=== PATIENT | male | born 1930 | race Caucasian/White ===

== ENCOUNTER 2018-05-18 14:19 | Observation (INO) ==
--- NOTE | 2018-05-18 14:48 | Emergency Department Note ---
ED Disposition Clinical Impression: Cellulitis, Neutropenia Disposition: Still a Patient Condition on Discharge: Good Instructions: DI for Skin Abscess Referrals: Gareth Myers MD [Primary Care Provider] - - Critical Care Critical Care Time: No Attestation: On 05/18/18, the high probability of a clinically significant, sudden or life threatening deterioration of the following system(s) required my full and direct attention, intervention and personal management. The time I documented below is in addition to time spent performing reported procedures but includes the f ollowing listed in this critical care notation. Medical Decision Making - Medical Records MR Comment: 89 pt with cellulitis, nuetropenia, plan admit, call to [facility]. - Wolf Inquiry Pt receiving controlled substance: No Vital Signs: 05/18/18 14:20 05/18/18 14:27 05/18/18 15:25 Temperature 97.8 F 97.9 F 98.1 F Temperature Source Oral Temporal Artery Scan Temporal Artery Scan Pulse Rate [Right Brachial] 75 78 74 Respiratory Rate 16 15 18 Blood Pressure [Right Arm] 137/76 141/72 Blood Pressure Mean [Right Arm] 96 95 Blood Pressure Source [Right Arm] Automatic Cuff Automatic Cuff Automatic Cuff Blood Pressure Position [Right Arm] Sitting Sitting Sitting 02 Sat by Pulse Oximetry 98 98 99 Oxygen Delivery Method Room Air Room Air 05/18/18 16:41 Temperature Temperature Source Pulse Rate [Right Brachial] 67 Respiratory Rate 18 Blood Pressure [Right Arm] 171/82 Blood Pressure Mean [Right Arm] 111 Blood Pressure Source [Right Arm] Automatic Cuff Blood Pressure Position [Right Arm] Sitting 02 Sat by Pulse Oximetry 99 Oxygen Delivery Method Room Air - Lab Data Lab Results 05/18/18 14:30: WBC 2.3 L, RBC 3.41 L, Hgb 10.4 L, Hct 32.1 L, MCV 94.2 H, MCH 30.7, MCHC 32.6, RDW 16.0, Plt Count 66 L, MPV 9.0, Neut % (Auto) 56.6, Lymph % (Auto) 30.0, Pershing % (Auto) 8.1, Eos % (Auto) 4.8, Baso % (Auto) 0.5, Neut # (Auto) 1.3 L, Lymph # (Auto) 0.7, Pershing # (Auto) 0.2, Eos # (Auto) 0.1, Baso # (Auto) 0.0 05/18/18 14:30: PT 12.2 H, INR 1.19 H, APTT 33.4 05/18/18 14:30: Sodium 140, Potassium 3.6, Chloride 105, Carbon Dioxide 30, Anion Gap 8.6, BUN 15, Creatinine 0.95, Estimated Creat Clear 60, Estimated GFR 75, Est GFR ( Amer) 91, Glucose 99, Calcium 8.1 L, Total Bilirubin 1.0, AST 37, ALT 28, Alkaline Phosphatase 70, Lactate Dehydrogenase 220, Troponin I 0.03, Total Protein 6.3 L, Albumin 2.7 L, Globulin 3.6 H, Albumin/Globulin Ratio 0.8 L 05/18/18 14:30: B-Natriuretic Peptide 464 H Result diagrams: 05/18/18 14:30 05/18/18 14:30 Orders (Tests/Meds): ED MEDICATIONS Discontinued Medications Generic Name Dose Route Start Last Admin Trade Name Freq PRN Reason Stop Dose Admin Vancomycin HCl 1,000 mg/ 250 mls @ 125 mls/hr 05/18/18 14:46 05/18/18 15:18 Sodium Chloride IV 05/18/18 16:45 125 mls/hr ONCE ONE Administration ORDERS Category Date Time Status Urinalysis and Microscopic Stat Lab 05/18/18 14:45 Ordered Blood Culture Stat Micro 05/18/18 14:30 Received General Adult HPI - General Chief complaint: Skin/Abscess/Foreign Body Stated complaint: cellulitis ble with blisters Time Seen by Provider: 05/18/18 14:46 Mode of Arrival: EMS Limitations: No Limitations Description of Symptoms (Recalled from ER Triage Doc. by RN): cellulitis to ble despite antibiotics - History of Present Illness HPI narrative: Patient states that his right foot has become hot and red over the past couple days he complains of foot and his right pain he complains of increased swelling in his legs he states his right leg swelling is gotten worse and it is starting to blister. He denies any falls or trauma he denies fevers he states he had some chills last night. He denies any headache or chest pain his right foot pain is moderate and achy and worse with motion. - Related Data Home Medications Medication Instructions Recorded Confirmed Acetaminophen [Tylenol Extra 500 mg PO Q6HP PRN 09/14/17 05/13/18 Strength] Losartan/Hydrochlorothiazide 1 each PO DAILY 09/14/17 05/13/18 [Losartan-Hctz 50-12.5 mg Tab] Meclizine HCl [Meclizine 12.5mg 12.5 mg PO BID 09/14/17 05/13/18 Tab] Nitroglycerin 0.4 mg SL Q5MINP PRN 09/14/17 05/13/18 Polyethylene Glycol 3350 [Miralax 17 gm PO NEEDED PRN 09/14/17 05/13/18 17gm Packet] hydrocodone 5 mg-acetaminophen 325 1 tab PO .Q6 PRN tab 10/05/17 05/13/18 mg tablet tamsulosin 0.4 mg capsule 0.4 mg PO DAILY cap 10/05/17 05/13/18 Previous Rx's Medication Instructions Recorded Doxycycline Hyclate [Doxycycline 100 mg PO Q12 #20 cap 05/13/18 100mg Capsule] Allergies Allergy/AdvReac Type Severity Reaction Status Date / Time aspirin [ASPIRIN] Allergy Mild Verified 12/21/17 10:07 [facility] History I have reviewed the patient's past medical history: Yes Medical History: Reports:: Carotid Stenosis, Heart Murmur, Peripheral Vascular Disease Denies:: Cancer, Diabetes Mellitus Type 1, Diabetes Mellitus Type 2, Internal Pacemaker, MRSA Other Medical History: Reports: Cataracts (BOTH EYES.) Comment: 1. Difficult historian. 2. Hypertension. 3. History of palpitations and bradycardia with recommendation for pacemaker in the past, 2013, with refusal per patient. 4. Possible history of cardiomyopathy, history confusing per patient. 5. Gastroesophageal reflux disease. 6. Vertigo. 7. 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 8. Cellulitis. 9. Reported history of peripheral arterial disease and varicose veins with previous evaluation by Dr. Bedolla, vascular surgeon, [facility], 2013. 10. Disability. 11. Peripheral neuropathy. 12. Aortic stenosis, moderate by T EE measurements with max flow gradient of 3.2 m/s with gradient of 27 mm Hg. But visually felt to be severe, 03/2017. Other Surgeries: No: Pacemaker Amputation: Yes Fractures: No - Social History Educational Level: Completed High School Smoking Status: Unknown if ever smoked Tobacco Type: cigarettes Alcohol Intake: never Occupational Status: retired - Psychiatric History Expresses thoughts of harming self/others: None Suicide Plan Description: No Plan Family Hx:: Unable to obtain ROS Obtained: Yes All systems reviewed & no additional complaints Physical Exam General Appearance: Nontoxic Head: Normocephalic, without obvious abnormality, atraumatic. Eyes: conjunctiva/corneas clear ENT: Mucous membranes moist. Neck: No jugular venous distention. Cardiac: regular rate and rhythm Lungs: Clear to auscultation bilaterally Abdomen: Nontender, Nondistended, positive bowel sounds, no rebound : No CVA tenderness Extremities: 3+ ble The right foot has erythema on the top of it it is hot and warm it is tender th ere is no fluctuance there is no induration capillary refill is equal bilaterally somewhat sluggish. Pulses 1+ bilaterally. Bilateral lower extremities have 3+ edema of the right has a blister on the anterior mid tib-fib that is about 3 cm x 1 cm. Clearish fluid. There is bilateral erythema on the legs. Musculoskeletal: No chest wall tenderness Skin: No rashes or lesions to exposed skin. Neurologic: Alert. No gross focal deficits Psychiatric: Normal affect - General General appearance: alert - Respiratory Respiratory exam: Present: normal lung sounds bilaterally - Cardiovascular Cardiovascular exam: Present: regular rate - Neurological Exam Neurological exam: Present: alert
[2018-05-18 14:57] LABS: Basophils % 0.5 % (0.1-2.0); Eosinophils # 0.1 K/mm3 (0.0-0.4); Eosinophils % 4.8 % (0.1-12.0); Hematocrit 32.1 % (42.0-52.0); Hemoglobin 10.4 g/dL (14.1-18.0); Lymphocytes # 0.7 K/mm3 (0.7-4.5); Mean Corpuscular HGB Conc 32.6 g/dL (31.8-35.4); Mean Corpuscular Hemoglobin 30.7 pg (27.0-31.2); Mean Corpuscular Volume 94.2 fl (80-94); Monocytes # 0.2 K/mm3 (0.1-1.0); Monocytes % 8.1 % (1.7-9.3); Neutrophils # 1.3 K/mm3 (1.8-7.8); Neutrophils % 56.6 % (37.0-80.0); Platelet Count 66 K/mm3 (142-424); Red Blood Count 3.41 M/mm3 (4.60-6.20); White Blood Count 2.3 K/mm3 (4.8-10.8)
[2018-05-18 15:02] LABS: INR 1.19 (0.9-1.1); Prothrombin Time 12.2 seconds (9.4-11.8)
[2018-05-18 15:08] LABS: Albumin Level 2.7 gm/dL (3.4-5.0); Albumin/Globulin Ratio 0.8 (1.1-1.8); Anion Gap 8.6 mEq/L (5-15); Calcium 8.1 mg/dL (8.5-10.1); Globulin 3.6 gm/dl (1.3-3.2); Potassium 3.6 mmoL/L (3.5-5.1); Total Protein,Serum 6.3 gm/dL (6.4-8.2)
[2018-05-18 16:25] LABS: Activated Partial Thrombo Time 33.4 seconds (23.6-34.0)
[2018-05-19 06:19] LABS: Basophils % 0.6 % (0.1-2.0); Eosinophils # 0.1 K/mm3 (0.0-0.4); Eosinophils % 4.4 % (0.1-12.0); Hematocrit 33.1 % (42.0-52.0); Hemoglobin 10.7 g/dL (14.1-18.0); Lymphocytes # 0.6 K/mm3 (0.7-4.5); Lymphocytes % 23.8 K/mm3 (10-50); Mean Corpuscular HGB Conc 32.4 g/dL (31.8-35.4); Mean Corpuscular Hemoglobin 30.7 pg (27.0-31.2); Mean Corpuscular Volume 94.9 fl (80-94); Mean Platelet Volume 8.5 fl (7.4-10.4); Monocytes # 0.2 K/mm3 (0.1-1.0); Monocytes % 8.4 % (1.7-9.3); Neutrophils # 1.7 K/mm3 (1.8-7.8); Neutrophils % 62.8 % (37.0-80.0); Platelet Count 66 K/mm3 (142-424); Red Blood Count 3.48 M/mm3 (4.60-6.20); White Blood Count 2.7 K/mm3 (4.8-10.8)
[2018-05-19 06:31] LABS: Albumin Level 2.4 gm/dL (3.4-5.0); Albumin/Globulin Ratio 0.8 (1.1-1.8); Anion Gap 9.7 mEq/L (5-15); Bilirubin,Total 1.3 mg/dL (0.2-1.0); Calcium 7.9 mg/dL (8.5-10.1); Potassium 3.7 mmoL/L (3.5-5.1); Total Protein,Serum 5.4 gm/dL (6.4-8.2)
--- NOTE | 2018-05-19 07:52 | Pharmacy Consult Notes ---
[facility] Pharmacy VTE Monitoring - Patient Demographics Admission date: 05/19/18 Report Date: 05/19/18 Time: 07:52 Allergies/Adverse Reactions: Patient Allergies aspirin [ASPIRIN] Allergy (Mild, Verified 12/21/17 10:07) Height: 1.91 m Weight: 92.675 kg Patient Problems: Current Active Problems Cellulitis (Acute) Neutropenia (Acute) - VTE Risk Labs: VTE Related Lab Results Hgb 10.7 g/dL (14.1-18.0) L 05/19/18 05:22 Hct 33.1 % (42.0-52.0) L 05/19/18 05:22 Plt Count 66 K/mm3 (142-424) L 05/19/18 05:22 PT 12.2 seconds (9.4-11.8) H 05/18/18 14:30 INR 1.19 (0.9-1.1) H 05/18/18 14:30 APTT 33.4 seconds (23.6-34.0) 05/18/18 14:30 BUN 12 mg/dL (7-18) 05/19/18 05:22 Creatinine 0.88 mg/dL (0.70-1.30) 05/19/18 05:22 Estimated Creat Clear 70 mL/min (0-300) 05/19/18 05:22 Was VTE Risk Assessment Performed: Yes VTE Score: 2 VTE Risk Level: Very Low Risk Clinical Trial Participant: No - Prophylaxis VTE Prophylaxis Ordered?: Yes Types of VTE Prophylaxis: TEDS Knee High
--- NOTE | 2018-05-19 09:36 | History & Physical Report ---
*Admission Date: 05/19/18 *Chief complaint: cellulitis *History of present illness: 87-year-old male patient presents to the ER with complaints of right foot being red and hot over the last couple days with increased swelling to the legs gotten worse with a developing blister. He denies any headache or chest pain his right foot pain is moderate and achy and worse with motion. Patient admitted will have a venous Doppler to rule out DVT continue IV antibiotics. PT OT consult probable discharge home in a.m. [facility] History I have reviewed the patient's past medical history: Yes Medical History: Reports:: Carotid Stenosis, Heart Murmur, Peripheral Vascular Disease Denies:: Cancer, Diabetes Mellitus Type 1, Diabetes Mellitus Type 2, Internal Pacemaker, MRSA Other Medical History: Reports: Cataracts (BOTH EYES.) Other Surgeries: No: Pacemaker Amputation: Yes Fractures: No - *Social History Educational Level: Completed Grade School Smoking Status: Never smoker Tobacco Type: cigarettes Alcohol Intake: never Occupational Status: disabled Housing: assisted living facility Household Members: caregiver - Psychiatric History Expresses thoughts of harming self/others: None Suicide Plan Description: No Plan, Clear *Family Hx:: Unable to obtain Review of Systems - Review of Systems Review of systems:: unable to obtain, other, pertinent systems reviewed and negative unless documented below - Constitutional Reports chills, Denies fever(s) - Eyes Denies double vision - ENT Denies bad breath - *Cardiovascular Denies chest pain with activity - *Respiratory Denies cough - *Gastrointestinal Denies change in bowel habits - *Genitourinary Denies urinary frequency - *Musculoskeletal Denies decreased muscle mass - Integumentary/Breasts Reports wounds - *Neurologic Reports abnormal hearing - Psychiatric Denies anxiety - Endocrine Denies flushing - Hematologic/Lymphatic Denies enlarged lymph nodes - Allergic/Immunologic Denies lip swelling Meds Home Medications Medication Instructions Recorded Confirmed Type Acetaminophen [Tylenol Extra 500 mg PO Q6HP PRN 09/14/17 05/18/18 History Strength] Losartan/Hydrochlorothiazide 1 each PO DAILY 09/14/17 05/18/18 History [Losartan-Hctz 50-12.5 mg Tab] Meclizine HCl [Meclizine 12.5mg 12.5 mg PO BID 09/14/17 05/18/18 History Tab] Polyethylene Glycol 3350 [Miralax 17 gm PO NEEDED PRN 09/14/17 05/18/18 History 17gm Packet] tamsulosin 0.4 mg capsule 0.4 mg PO DAILY cap 10/05/17 05/18/18 History Magnesium Oxide [Mgo] 800 mg PO BID 05/18/18 05/18/18 History Pantoprazole Sodium [Protonix 40mg 40 mg PO DAILY 05/18/18 05/18/18 History tablet] Allergies Allergy/AdvReac Type Severity Reaction Status Date / Time aspirin [ASPIRIN] Allergy Mild Verified 12/21/17 10:07 Exam Vital signs and Labs for Last 24 Hours: Temp Pulse Resp BP Pulse Ox 98.4 F 78 18 161/87 98 05/19/18 07:29 05/19/18 07:29 05/19/18 07:29 05/19/18 07:29 05/19/18 07:29 Laboratory Results - last 24 hr 05/18/18 14:30: WBC 2.3 L, RBC 3.41 L, Hgb 10.4 L, Hct 32.1 L, MCV 94.2 H, MCH 30.7, MCHC 32.6, RDW 16.0, Plt Count 66 L, MPV 9.0, Neut % (Auto) 56.6, Lymph % (Auto) 30.0, Calloway % (Auto) 8.1, Eos % (Auto) 4.8, Baso % (Auto) 0.5, Neut # (Auto) 1.3 L, Lymph # (Auto) 0.7, Calloway # (Auto) 0.2, Eos # (Auto) 0.1, Baso # (Auto) 0.0 05/18/18 14:30: PT 12.2 H, INR 1.19 H, APTT 33.4 05/18/18 14:30: Sodium 140, Potassium 3.6, Chloride 105, Carbon Dioxide 30, Anion Gap 8.6, BUN 15, Creatinine 0.95, Estimated Creat Clear 60, Estimated GFR 75, Est GFR ( Amer) 91, Glucose 99, Calcium 8.1 L, Total Bilirubin 1.0, AST 37, ALT 28, Alkaline Phosphatase 70, Lactate Dehydrogenase 220, Troponin I 0.03, Total Protein 6.3 L, Albumin 2.7 L, Globulin 3.6 H, Albumin/Globulin Ratio 0.8 L 05/18/18 14:30: B-Natriuretic Peptide 464 H 05/19/18 05:22: WBC 2.7 L, RBC 3.48 L, Hgb 10.7 L, Hct 33.1 L, MCV 94.9 H, MCH 30.7, MCHC 32.4, RDW 16.0, Plt Count 66 L, MPV 8.5, Neut % (Auto) 62.8, Lymph % (Auto) 23.8, Calloway % (Auto) 8.4, Eos % (Auto) 4.4, Baso % (Auto) 0.6, Neut # (Auto) 1.7 L, Lymph # (Auto) 0.6 L, Calloway # (Auto) 0.2, Eos # (Auto) 0.1, Baso # (Auto) 0.0 05/19/18 05:22: Sodium 142, Potassium 3.7, Chloride 107, Carbon Dioxide 29, Anion Gap 9.7, BUN 12, Creatinine 0.88, Estimated Creat Clear 70, Estimated GFR 82, Est GFR ( Amer) 99, Glucose 82, Calcium 7.9 L, Total Bilirubin 1.3 H, AST 30, ALT 25, Alkaline Phosphatase 51, Total Protein 5.4 L, Albumin 2.4 L D, Globulin 3.0, Albumin/Globulin Ratio 0.8 L I & O for Last 24 hours: Intake & Output 05/16/18 05/17/18 05/18/18 05/19/18 11:59 11:59 11:59 11:59 Intake Total 816 / 816 Output Total 1850 / 1850 Balance -1034 / -1034 Weight 204 lb 5 oz - *Routine HEENT Exam Head: Present: normocephalic Eye: Present: EOMI, PERRL ENT: Present: mucous membranes moist - *Routine Neck Exam Present: supple. Absent: lymphadenopathy - *Routine Respiratory Exam Present: CTA bilaterally - *Routine Cardiovascular Exam Present: murmur - *Routine Abdominal Exam Present: soft, normoactive bowel sounds. Absent: tenderness - *Routine Extremities Exam Present: edema. Absent: cyanosis, clubbing - *Routine Skin Exam Present: wounds - *Routine Neurological Exam Present: alert, oriented X3 - Detailed Skin Exam right leg Type of rash: Present: erythematous, vesicular Description of rash: Present: swelling, hyperpigmented Body image: 1 - redness, small quarter size blister Assessment and Plan - Assessment and plan all Dx Assessment and Plan for all problems:: rounded with besson, all orders per vick
--- NOTE | 2018-05-19 10:43 | Non-Invasive Vascular Report ---
"Venous Exam Indications: 729.5 Pain in limb. IMPRESSIONS 1. There is no evidence of significant Reflux. 2. No evidence of deep or superficial vein thrombosis involving the right lower extremity Right lower extremity venous duplex evaluation. Doppler flow study including spectral analysis, color and perdomo scale imaging. Location: Bedside. Patient status: Inpatient. Tables: Venous flow and imaging: + + + + + |Location |Overall |Flow properties |Comments | + + + + + |Right common femoral|Patent |Normal phasicity; | | | | |spontaneous; normal| | | | |augmentation; | | | | |compressible | | + + + + + |Right saphenofemoral|Patent |Compressible | | |junction | | | | + + + + + |Right profunda |Patent |Compressible | | |femoral | | | | + + + + + |Right femoral |Patent |Normal phasicity; | | | | |spontaneous; normal| | | | |augmentation; | | | | |compressible | | + + + + + |Right greater |Patent |Normal phasicity; | | |saphenous | |spontaneous; normal| | | | |augmentation; | | | | |compressible | | + + + + + |Right popliteal |Patent |Normal phasicity; | | | | |spontaneous; normal| | | | |augmentation; | | | | |compressible | | + + + + + |Right posterior |Patent |Compressible | | |tibial | | | | + + + + + |Right peroneal |Difficult |Compressible |Difficult to | | |study | |image | + + + + + |Right gastrocnemius |Not visualized| | | + + + + + |Right soleal |Not visualized| | | + + + + + (Report amended ) Electronically signed by: Karthik Mclean [id number]"
--- NOTE | 2018-05-19 14:14 | Pharmacy Consult Notes ---
- Pharmacy Consult Date: 05/19/18 Time: 14:07 Referring provider: LUAN KELLEY Reason for Consult:: VANCOMYCIN DOSING Allergies and ADEs:: Allergies Allergy/AdvReac Type Severity Reaction Status Date / Time aspirin [ASPIRIN] Allergy Mild Verified 12/21/17 10:07 Home Medications:: Home Medications Medication Instructions Recorded Confirmed Type Acetaminophen [Tylenol Extra 500 mg PO Q6HP PRN 09/14/17 05/18/18 History Strength] Losartan/Hydrochlorothiazide 1 each PO DAILY 09/14/17 05/18/18 History [Losartan-Hctz 50-12.5 mg Tab] Meclizine HCl [Meclizine 12.5mg 12.5 mg PO BID 09/14/17 05/18/18 History Tab] Polyethylene Glycol 3350 [Miralax 17 gm PO NEEDED PRN 09/14/17 05/18/18 History 17gm Packet] Magnesium Oxide [Mgo] 800 mg PO BID 05/18/18 05/18/18 History Pantoprazole Sodium [Protonix 40mg 40 mg PO DAILY 05/18/18 05/18/18 History tablet] Tamsulosin HCl [Flomax 0.4mg 0.4 mg PO HS 05/19/18 05/19/18 History capsule] Height: 1.91 m Weight: 92.675 kg Laboratory Results:: Laboratory Results - last 24 hr 05/18/18 14:30: WBC 2.3 L, RBC 3.41 L, Hgb 10.4 L, Hct 32.1 L, MCV 94.2 H, MCH 30.7, MCHC 32.6, RDW 16.0, Plt Count 66 L, MPV 9.0, Neut % (Auto) 56.6, Lymph % (Auto) 30.0, Henderson % (Auto) 8.1, Eos % (Auto) 4.8, Baso % (Auto) 0.5, Neut # (Auto) 1.3 L, Lymph # (Auto) 0.7, Henderson # (Auto) 0.2, Eos # (Auto) 0.1, Baso # (Auto) 0.0 05/18/18 14:30: PT 12.2 H, INR 1.19 H, APTT 33.4 05/18/18 14:30: Sodium 140, Potassium 3.6, Chloride 105, Carbon Dioxide 30, Anion Gap 8.6, BUN 15, Creatinine 0.95, Estimated Creat Clear 60, Estimated GFR 75, Est GFR ( Amer) 91, Glucose 99, Calcium 8.1 L, Total Bilirubin 1.0, AST 37, ALT 28, Alkaline Phosphatase 70, Lactate Dehydrogenase 220, Troponin I 0.03, Total Protein 6.3 L, Albumin 2.7 L, Globulin 3.6 H, Albumin/Globulin Ratio 0.8 L 05/18/18 14:30: B-Natriuretic Peptide 464 H 05/19/18 05:22: WBC 2.7 L, RBC 3.48 L, Hgb 10.7 L, Hct 33.1 L, MCV 94.9 H, MCH 30.7, MCHC 32.4, RDW 16.0, Plt Count 66 L, MPV 8.5, Neut % (Auto) 62.8, Lymph % (Auto) 23.8, Henderson % (Auto) 8.4, Eos % (Auto) 4.4, Baso % (Auto) 0.6, Neut # (Auto) 1.7 L, Lymph # (Auto) 0.6 L, Henderson # (Auto) 0.2, Eos # (Auto) 0.1, Baso # (Auto) 0.0 05/19/18 05:22: Sodium 142, Potassium 3.7, Chloride 107, Carbon Dioxide 29, Anion Gap 9.7, BUN 12, Creatinine 0.88, Estimated Creat Clear 70, Estimated GFR 82, Est GFR ( Amer) 99, Glucose 82, Calcium 7.9 L, Total Bilirubin 1.3 H, AST 30, ALT 25, Alkaline Phosphatase 51, Total Protein 5.4 L, Albumin 2.4 L D, Globulin 3.0, Albumin/Globulin Ratio 0.8 L Medical History: Reports:: Carotid Stenosis, Heart Murmur, Peripheral Vascular Disease Denies:: Cancer, Diabetes Mellitus Type 1, Diabetes Mellitus Type 2, Internal Pacemaker, MRSA Assessment and Plan - Assessment and plan all Dx Assessment and Plan for all problems:: BASED ON PATIENT'S FACTORS, RECOMMEND STARTING WITH VANCOMYCIN 2000 MG Q18H AT THIS TIME. PHARMACY WILL FOLLOW DAILY AND ADJUST APPROPRIATE. FAUSTINO CHRISTIANSON, PHARMD
--- NOTE | 2018-05-20 08:49 | Discharge Summary ---
General - General Admission date:: 05/18/18 Discharge date: 05/20/18 HPI HPI: 87-year-old male patient presents to the ER with complaints of right foot being red and hot over the last couple days with increased swelling to the legs gotten worse with a developing blister. He denies any headache or chest pain his right foot pain is moderate and achy and worse with motion. Patient admitted will have a venous Doppler to rule out DVT continue IV antibiotics. Above note per Ms. Berenice APRN. Patient is a long-term resident of local personal alf with problems with venous insufficiency and positional edema and chronic brawny cellulitis. Is change apparently over baseline is only a small bullae/vesicle over the right lateral calf. Otherwise his redness and swelling is a chronic problem. Patient was admitted for venous Doppler and IV antibiotic therapy. Hospital Course Hospital Course: Was admitted. Patient continued to do fairly well without complaints except for leg pain and a variety of concerns about his personal/nursing care. His legs went down with elevation very nicely and brawny skin changes remained- which are chronic for him. No evidence of DVT, this morning his legs are much improved. Plan will be to discharge back to his personal alf with p.o. antibiotics and topical ointments. Overall his prognosis is very poor. Care is limited by his visual loss. We will continue to respect DNR status. Otherwise medications were the same. Objective Vital signs: Temp Pulse Resp BP Pulse Ox 98.1 F 75 18 131/78 94 L 05/20/18 08:00 05/20/18 08:00 05/20/18 08:00 05/20/18 08:00 05/20/18 08:00 Narrative: Patient is alert. Oriented x2. Heart rate regular. Lungs with good air movement. No oral lesions. Abdomen soft. Legs improved with less redness. No swelling. Great toe loss on the left foot from previous operation is noted. Diminished/absent pulses in the legs because of brawny skin changes in his chronic vascular issues --sensory loss noted in lower legs secondary to brawny skin changes and vascular problems. Results Labs on day of discharge: Labs from last 24 hours 05/19/18 05:22 Glucose 82 DS: Diagnosis - Discharge Diagnosis (1) Cellulitis Status: Chronic Discharge Plan - Patient Discharge Instructions ACTIVITY: Continue current activity DIET: continue same diet - Follow up Plan Follow up with: Gareth Myers MD [Primary Care Provider] - Disposition: Home, Self-Fpc Medications: Home Medications Medication Instructions Recorded Confirmed Type Acetaminophen [Tylenol Extra 500 mg PO Q6HP PRN 09/14/17 05/18/18 History Strength] Losartan/Hydrochlorothiazide 1 each PO DAILY 09/14/17 05/18/18 History [Losartan-Hctz 50-12.5 mg Tab] Meclizine HCl [Meclizine 12.5mg 12.5 mg PO BID 09/14/17 05/18/18 History Tab] Polyethylene Glycol 3350 [Miralax 17 gm PO NEEDED PRN 09/14/17 05/18/18 History 17gm Packet] Magnesium Oxide [Mgo] 800 mg PO BID 05/18/18 05/18/18 History Pantoprazole Sodium [Protonix 40mg 40 mg PO DAILY 05/18/18 05/18/18 History tablet] Tamsulosin HCl [Flomax 0.4mg 0.4 mg PO HS 05/19/18 05/19/18 History capsule] Prescriptions/Medication Reconciliation: New Cefdinir [Omnicef 300mg Capsule] 300 mg PO BID #14 cap Mupirocin [Bactroban 2% Ointment 22gm tube] 1 applicatio TP TID #2 tube Continue Polyethylene Glycol 3350 [Miralax 17gm Packet] 17 gm PO NEEDED PRN PRN Reason: Constipation Losartan/Hydrochlorothiazide [Losartan-Hctz 50-12.5 mg Tab] 1 each PO DAILY Acetaminophen [Tylenol Extra Strength] 500 mg PO Q6HP PRN PRN Reason: As Needed For Fever Or Pain Magnesium Oxide [Mgo] 800 mg PO BID Tamsulosin HCl [Flomax 0.4mg capsule] 0.4 mg PO HS Meclizine HCl [Meclizine 12.5mg Tab] 12.5 mg PO BID Pantoprazole Sodium [Protonix 40mg tablet] 40 mg PO DAILY
== END 2018-05-20 10:16 | disposition home or self-care (01) ==
LOC: 2ND 14:19 → ER 14:19 → 2ND 20:27
PROVIDERS: ADMIT Internal Medicine Adolescent Medicine; ATTEND Emergency Medicine
CPT/HCPCS: 36415; 71010; 71045; 73630; 80053; 83615; 83880; 84484; 85025; 85610; 85730; 87040; 93971; 96365; 97162; 97165; 97535; 99284; G0378; J2543; J3370

== ENCOUNTER 2018-09-17 17:53 | Inpatient (IN) ==
--- NOTE | 2018-09-17 17:59 | Emergency Department Note ---
ED Disposition Clinical Impression: Nausea vomiting and diarrhea Disposition: Still a Patient Condition on Discharge: Fair Instructions: DI for Diarrhea and Traveler's Diarrhea -- Adult, DI for Diarrhea and Traveler's Diarrhea -- Child, DI for Nausea -- Adult, DI for Nausea -- Child Referrals: Gareth Myers MD [Primary Care Provider] - - Critical Care Critical Care Time: No Attestation: On , the high probability of a clinically significant, sudden or life threatening deterioration of the following system(s) required my full and direct attention, intervention and personal management. The time I documented below is in addition to time spent performing reported procedures but includes the following listed in this critical care notation. Medical Decision Making - Medical Records Medical records reviewed: Yes: I reviewed the patient's medical records. - Wolf Inquiry Pt receiving controlled substance: No Wolf was queried for this patient: No Vital Signs: 09/17/18 17:54 Temperature 101.3 F H Temperature Source Oral Pulse Rate [Left Radial] 91 H Respiratory Rate 18 Blood Pressure [Right Arm] 129/57 L Blood Pressure Mean [Right Arm] 81 02 Sat by Pulse Oximetry 95 Oxygen Delivery Method Room Air - Lab Data Lab Results 09/17/18 18:40: WBC 6.5, RBC 3.68 L, Hgb 10.7 L, Hct 35.1 L, MCV 95.4 H, MCH 29.1, MCHC 30.5 L, RDW 15.5, Plt Count 76 L, MPV 8.9, Neut % (Auto) 92.6 H, Lymph % (Auto) 2.3 L, Esmeralda % (Auto) 3.8, Eos % (Auto) 1.1, Baso % (Auto) 0.2, Neut # (Auto) 6.0, Lymph # (Auto) 0.2 L, Esmeralda # (Auto) 0.3, Eos # (Auto) 0.1, Baso # (Auto) 0.0 Result diagrams: 09/17/18 18:40 Orders (Tests/Meds): ED MEDICATIONS Generic Name Dose Route Start Last Admin Trade Name Freq PRN Reason Stop Dose Admin Sodium Chloride 1,000 mls @ 999 mls/hr 09/17/18 18:00 09/17/18 18:40 Sod Chlor 0.9% 1000ml Bag IV 09/17/18 19:00 999 mls/hr .Q1H1M [place] Administration Ceftriaxone Sodium 1 gm/ 50 mls @ 100 mls/hr 09/17/18 18:15 09/17/18 18:41 Sodium Chloride IV 10/01/18 18:14 100 mls/hr Q24H [place] Administration Protocol Discontinued Medications Generic Name Dose Route Start Last Admin Trade Name Simq PRN Reason Stop Dose Admin Acetaminophen 1,000 mg 09/17/18 17:54 09/17/18 18:40 Tylenol 500mg Tablet PO 09/17/18 17:55 1,000 mg ONCE ONE Administration Ondansetron HCl 4 mg 09/17/18 17:55 09/17/18 18:40 Zofran 4mg/2ml Vial IV 09/17/18 17:56 4 mg ONCE ONE Administration ORDERS Category Date Time Status Acute abdomen XR series [XR acute abdomen series] Stat Exams 09/17/18 17:54 Taken Foot XR right 2 views [XR foot RT 2V] Stat Exams 09/17/18 18:02 Taken XR foot LT 2V Stat Exams 09/17/18 18:02 Taken Complete Blood Count Auto Diff Stat Lab 09/17/18 18:40 Results Comprehensive Metabolic Panel Stat Lab 09/17/18 18:40 Received Diarrhea Panel, PCR Stat Lab 09/17/18 17:54 Ordered Lactic Acid Stat Lab 09/17/18 18:40 Received Magnesium Stat Lab 09/17/18 18:40 Received Blood Culture Stat Micro 09/17/18 18:40 Received - Radiology Data #1 Image(s): Chest, Abdomen, Foot/Toes Image Reviewed: Yes I reviewed the patient's radiology image Preliminary Findings: Normal/NAD CXR: no acute. Abdomen XR: nofree air, SB pattern, no acute. Bilateral feet xr : no SC gas. Weakness HPI - General Chief complaint: Nausea/Vomiting/Diarrhea Stated complaint: vomiting Time Seen by Provider: 09/17/18 17:56 Mode of Arrival: EMS - History of Present Illness HPI Narrative: 88 years old white male with multiple medical problems resident of [facility]. 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 He has been experiencing nausea vomiting and diarrhea. Today while he was running into the bathroom for vomiting he fell in between the commode and the sink and lost his bowel control and became soaked and diarrhea. The staff at [facility] contacted EMS who found the patient to be febrile 101F blood pressure 121/57mmhg heart rate 89/min saturation is 95% on RA. The patient is legally blind alert provided history and concerned about his feet. MD Complaint: generalized weakness Onset (ago): day(s) Duration: constant Location: generalized Severity: moderate Relieving factors: none Exacerbating factors: other (NVD ) Context: recent illness Associated symptoms: nausea/vomiting - Related Data Home Medications Medication Instructions Recorded Confirmed Acetaminophen [Tylenol Extra 500 mg PO Q6HP PRN 09/14/17 09/17/18 Strength] Losartan/Hydrochlorothiazide 1 each PO DAILY 09/14/17 09/17/18 [Losartan-Hctz 50-12.5 mg Tab] Meclizine HCl [Meclizine 12.5mg 12.5 mg PO BID 09/14/17 09/17/18 Tab] Polyethylene Glycol 3350 [Miralax 17 gm PO NEEDED PRN 09/14/17 09/17/18 17gm Packet] Magnesium Oxide [Mgo] 800 mg PO BID 05/18/18 09/17/18 Pantoprazole Sodium [Protonix 40mg 40 mg PO DAILY 05/18/18 09/17/18 tablet] Tamsulosin HCl [Flomax 0.4mg 0.4 mg PO HS 05/19/18 09/17/18 capsule] Mupirocin [Bactroban 2% Ointment 1 applicatio TP TID 07/17/18 09/17/18 22gm tube] Allergies Allergy/AdvReac Type Severity Reaction Status Date / Time aspirin [ASPIRIN] Allergy Mild Verified 12/21/17 10:07 [facility] History - Hepatitis A Screen Attestation statement:: This patient has been screened for Hepatitis A risk factors. I have reviewed the patient's past medical history: Yes Medical History: Reports:: Carotid Stenosis, Diabetes Mellitus Type 2, Heart Mur mur, Peripheral Vascular Disease Denies:: Cancer, Diabetes Mellitus Type 1, Internal Pacemaker, MRSA Other Medical History: Reports: Cataracts (BOTH EYES.) Comment: 1. Difficult historian. 2. Hypertension. 3. History of palpitations and bradycardia with recommendation for pacemaker in the past, 2013, with refusal per patient. 4. Possible history of cardiomyopathy, history confusing per patient. 5. Gastroesophageal reflux disease. 6. Vertigo. 7. 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 8. Cellulitis. 9. Reported history of peripheral arterial disease and varicose veins with previous evaluation by Dr. Bedolla, vascular surgeon, [facility], 2013. 10. Disability. 11. Peripheral neuropathy. 12. Aortic stenosis, moderate by KATHY measurements with max flow gradient of 3.2 m/s with gradient of 27 mm Hg. But visually felt to be severe, 03/2017. Other Surgeries: No: Pacemaker Amputation: Yes Fractures: No - Social History Smoking Status: Never smoker Tobacco Type: cigarettes Alcohol Intake: never Occupational Status: disabled Housing: assisted living facility Household Members: caregiver Family Hx:: Unable to obtain ROS Obtained: Yes All systems reviewed & no additional complaints Physical Exam - General General appearance: alert, in no apparent distress - Head Head exam: atraumatic, normocephalic, normal inspection - Eye Eye exam: Present: normal appearance, PERRL, EOMI. Absent: scleral icterus, nystagmus - ENT ENT exam: Present: normal exam, normal oropharynx, mucous membranes moist, TM's normal bilaterally, normal external ear exam - Neck Neck exam: Present: normal inspection, full ROM, trachea midline. Absent: tenderness, meningismus, lymphadenopathy - Chest Chest inspection: Present: normal inspection, symmetric chest wall rise. Absent: tenderness - Respiratory Respiratory exam: Present: normal lung sounds bilaterally. Absent: respiratory distress, wheezes - Cardiovascular Cardiovascular exam: Present: regular rate, normal rhythm, normal heart sounds. Absent: JVD - Abdominal Exam Abdominal exam: Present: soft, normal bowel sounds. Absent: distention, tenderness, guarding, rebound, rigidity - Extremities Exam Extremities exam: Present: full ROM, normal capillary refill, other (Bilateral xerotic dermatitis of both lower extremities with redness and scabs on the right medial malleolus and the medial aspect of the left foot. ). Absent: tenderness, calf tenderness - Back Exam Back exam: Present: normal inspection. Absent: tenderness - Neurological Exam Neurological exam: Present: alert, oriented X3, reflexes normal - Psychiatric Psychiatric exam: Present: normal affect, normal mood - Skin Skin exam: Present: warm, dry, intact, normal color - Lymphatic Lymphatic Findings: no adenopathy
[2018-09-17 18:51] LABS: Basophils % 0.2 % (0.1-2.0); Eosinophils # 0.1 K/mm3 (0.0-0.4); Eosinophils % 1.1 % (0.1-12.0); Hematocrit 35.1 % (42.0-52.0); Hemoglobin 10.7 g/dL (14.1-18.0); Lymphocytes # 0.2 K/mm3 (0.7-4.5); Lymphocytes % 2.3 % (10-50); Mean Corpuscular HGB Conc 30.5 g/dL (31.8-35.4); Mean Corpuscular Hemoglobin 29.1 pg (27.0-31.2); Mean Corpuscular Volume 95.4 fl (80-94); Mean Platelet Volume 8.9 fl (7.4-10.4); Monocytes # 0.3 K/mm3 (0.1-1.0); Monocytes % 3.8 % (1.7-9.3); Neutrophils % 92.6 % (37.0-80.0); Platelet Count 76 K/mm3 (142-424); Red Blood Count 3.68 M/mm3 (4.60-6.20); Red Cell Distribution Width 15.5 % (11.5-17.5); White Blood Count 6.5 K/mm3 (4.8-10.8)
[2018-09-17 19:05] LABS: Albumin Level 2.5 gm/dL (3.4-5.0); Albumin/Globulin Ratio 0.6 (1.1-1.8); Anion Gap 17.2 mEq/L (5-15); Bilirubin,Total 1.3 mg/dL (0.2-1.0); Calcium 8.4 mg/dL (8.5-10.1); Globulin 4.4 gm/dl (1.3-3.2); Potassium 3.2 mmoL/L (3.5-5.1); Total Protein,Serum 6.9 gm/dL (6.4-8.2)
[2018-09-17 19:44] LABS: Lymphocytes % 4 % (10-50); Neutrophils % 82 % (42-76); Total Cells Counted 100
[2018-09-17 19:45] LABS: Hypochromasia 1+; Polychromasia 1+; Rouleaux 1+
--- NOTE | 2018-09-17 22:02 | Sepsis Event Note ---
Tissue Perfusion Evaluation Sepsis Re-Evaluation Performed: Yes Date Performed: 09/17/18 Time Performed: 21:40 Sepsis Follow-Up: Yes: Respiratory exam, Cardiovascular exam, Peripheral pulse strength, Peripheral pulse location, Vital Signs Most Recent Vital Signs: Temperature 101.3 F H 09/17/18 17:54 Temperature Source Oral 09/17/18 17:54 Pulse Rate 88 09/17/18 20:47 Respiratory Rate 16 09/17/18 20:47 Blood Pressure 144/69 H 09/17/18 20:47 Blood Pressure Mean 94 09/17/18 20:47 Blood Pressure Source Automatic Cuff 09/17/18 20:47 Blood Pressure Position Sitting 09/17/18 20:47 02 Sat by Pulse Oximetry 98 09/17/18 20:47 Oxygen Delivery Method 09/17/18 20:47
[2018-09-18 04:21] LABS: Basophils % 0.1 % (0.1-2.0); Eosinophils # 0.1 K/mm3 (0.0-0.4); Eosinophils % 0.6 % (0.1-12.0); Hemoglobin 10.4 g/dL (14.1-18.0); Lymphocytes # 0.2 K/mm3 (0.7-4.5); Mean Corpuscular HGB Conc 31.5 g/dL (31.8-35.4); Mean Corpuscular Hemoglobin 29.8 pg (27.0-31.2); Mean Corpuscular Volume 94.8 fl (80-94); Mean Platelet Volume 10.6 fl (7.4-10.4); Monocytes # 0.4 K/mm3 (0.1-1.0); Monocytes % 3.5 % (1.7-9.3); Neutrophils # 9.7 K/mm3 (1.8-7.8); Neutrophils % 93.8 % (37.0-80.0); Platelet Count 54 K/mm3 (142-424); Red Blood Count 3.48 M/mm3 (4.60-6.20); Red Cell Distribution Width 15.4 % (11.5-17.5); White Blood Count 10.3 K/mm3 (4.8-10.8)
[2018-09-18 04:34] LABS: Lymphocytes % 4 % (10-50); Monocytes % 2 % (2-9); Neutrophils % 85 % (42-76); Total Cells Counted 100
[2018-09-18 04:35] LABS: Hypochromasia 1+; Macrocytosis 1+; Rouleaux 1+
[2018-09-18 04:36] LABS: Calcium 7.9 mg/dL (8.5-10.1)
--- NOTE | 2018-09-18 09:32 | History & Physical Report ---
*Admission Date: 09/17/18 *Chief complaint: fever *History of present illness: this wm who is a resident at care home who had fever and had fall and was sent for eval to the ed -he was found to have cellulitis lower ext and fever with sepsis and assoc shock and admitted for ivf and abx - pt has sig hx of aortic stenosis- [facility] History I have reviewed the patient's past medical history: Yes Medical History: Reports:: Arrhythmia, Carotid Stenosis, Diabetes Mellitus Type 2, Heart Murmur, Peripheral Vascular Disease Denies:: Cancer, Diabetes Mellitus Type 1, Internal Pacemaker, MRSA Have you ever received a pneumonia vaccine?: No Have you received a flu vaccine this season?: No (refused) Other Medical History: Reports: Cataracts (BOTH EYES.) Other Surgeries: Yes: Other (toe amputation). No: Pacemaker Amputation: Yes Fractures: No - *Social History Educational Level: Attended Grade School Smoking Status: Never smoker Tobacco Type: cigarettes Alcohol Intake: never Occupational Status: disabled Housing: assisted living facility Household Members: caregiver Travel in the last 8 weeks: None - Psychiatric History Expresses thoughts of harming self/others: None Suicide Plan Description: No Plan *Family Hx:: Unable to obtain Review of Systems - Review of Systems Review of systems:: pertinent systems reviewed and negative unless documented below - Constitutional Reports fever(s) - Eyes Reports other (chronic visual loss ), Denies change in vision - ENT Denies neck pain - *Cardiovascular Denies chest pain - *Respiratory Denies cough - *Gastrointestinal Denies abdominal pain, Denies black, tarry stools - *Genitourinary Denies blood in urine - *Musculoskeletal Denies joint pain - Integumentary/Breasts Reports rash Comments: cellulitis lower ext - *Neurologic Denies seizure-like activity - Psychiatric Reports anxiety Meds Home Medications Medication Instructions Recorded Confirmed Type Acetaminophen [Tylenol Extra 500 mg PO Q6HP PRN 09/14/17 09/17/18 History Strength] Losartan/Hydrochlorothiazide 1 each PO DAILY 09/14/17 09/17/18 History [Losartan-Hctz 50-12.5 mg Tab] Meclizine HCl [Meclizine 12.5mg 12.5 mg PO BID 09/14/17 09/17/18 History Tab] Polyethylene Glycol 3350 [Miralax 17 gm PO NEEDED PRN 09/14/17 09/17/18 History 17gm Packet] Magnesium Oxide [Mgo] 800 mg PO BID 05/18/18 09/17/18 History Pantoprazole Sodium [Protonix 40mg 40 mg PO DAILY 05/18/18 09/17/18 History tablet] Tamsulosin HCl [Flomax 0.4mg 0.4 mg PO HS 05/19/18 09/17/18 History capsule] Mupirocin [Bactroban 2% Ointment 1 applicatio TP TID 07/17/18 09/17/18 History 22gm tube] Allergies Allergy/AdvReac Type Severity Reaction Status Date / Time aspirin [ASPIRIN] Allergy Mild Verified 12/21/17 10:07 Exam Vital signs and Labs for Last 24 Hours: Temp Pulse Resp BP Pulse Ox 100.5 F H 88 18 133/61 97 09/18/18 08:00 09/18/18 08:00 09/18/18 08:00 09/18/18 08:00 09/18/18 08:00 Laboratory Results - last 24 hr 09/17/18 18:14: ESR 55 H 09/17/18 18:14: C-Reactive Protein 1.4 H 09/17/18 18:40: WBC 6.5, RBC 3.68 L, Hgb 10.7 L, Hct 35.1 L, MCV 95.4 H, MCH 29.1, MCHC 30.5 L, RDW 15.5, Plt Count 76 L, MPV 8.9, Neut % (Auto) 92.6 H, Lymph % (Auto) 2.3 L, Miller % (Auto) 3.8, Eos % (Auto) 1.1, Baso % (Auto) 0.2, Neut # (Auto) 6.0, Lymph # (Auto) 0.2 L, Miller # (Auto) 0.3, Eos # (Auto) 0.1, Baso # (Auto) 0.0, Total Counted 100, Neutrophils % (Manual) 82 H, Band Neutrophils % 14.0 H, Lymphocytes % (Manual) 4 L, Platelet Estimate Moderate decrease, RBC Morphology Not Reportable, Polychromasia 1+, Hypochromasia 1+, Poikilocytosis 1+, Rouleaux 1+ 09/17/18 18:40: Sodium 142, Potassium 3.2 L, Chloride 106, Carbon Dioxide 22, Anion Gap 17.2 H, BUN 24 H, Creatinine 1.44 H, Estimated Creat Clear 39, Estimated GFR 46 L, Est GFR ( Amer) 56 L, Glucose 139 H, Calcium 8.4 L, Magnesium 1.6, Total Bilirubin 1.3 H, AST 40 H, ALT 22, Alkaline Phosphatase 55, Total Protein 6.9, Albumin 2.5 L, Globulin 4.4 H, Albumin/Globulin Ratio 0.6 L 09/17/18 18:40: Lactate 4.0 H 09/17/18 20:00: Stool Occult Blood Negative 09/17/18 23:15: Lactate 2.9 H 09/18/18 01:15: Troponin I 0.29 H 09/18/18 01:15: Lactate 2.5 H 09/18/18 04:15: Sodium 142, Potassium 3.0 L, Chloride 108 H, Carbon Dioxide 23, Anion Gap 14.0, BUN 25 H, Creatinine 1.24, Estimated Creat Clear 53, Estimated GFR 55 L, Est GFR ( Amer) 67, Glucose 103 D, Calcium 7.9 L, Magnesium 1.7, Troponin I 0.31 H 09/18/18 04:15: WBC 10.3 D, RBC 3.48 L, Hgb 10.4 L, Hct 33.0 L, MCV 94.8 H, MCH 29.8, MCHC 31.5 L, RDW 15.4, Plt Count 54 L D, MPV 10.6 H, Neut % (Auto) 93.8 H, Lymph % (Auto) 2.0 L, Miller % (Auto) 3.5, Eos % (Auto) 0.6, Baso % (Auto) 0.1, Neut # (Auto) 9.7 H, Lymph # (Auto) 0.2 L, Miller # (Auto) 0.4, Eos # (Auto) 0.1, Baso # (Auto) 0.0, Total Counted 100, Neutrophils % (Manual) 85 H, Band Neutrophils % 9.0 H, Lymphocytes % (Manual) 4 L, Monocytes % (Manual) 2, Platelet Estimate Moderate decrease, Hypochromasia 1+, Macrocytosis 1+, Rouleaux 1+ I & O for Last 24 hours: Intake & Output 09/15/18 09/16/18 09/17/18 09/18/18 11:59 11:59 11:59 11:59 Output Total 340 / 340 Balance -340 / -340 Weight 198 lb - Constitutional no acute distress - *Routine HEENT Exam Head: Present: normocephalic Eye: Present: EOMI, PERRL. Absent: conjunctival icterus ENT: Present: mucous membranes dry - *Routine Neck Exam Present: supple. Absent: JVD - *Routine Respiratory Exam Present: decreased breath sounds - *Routine Cardiovascular Exam Present: RRR, murmur, S4 - *Routine Abdominal Exam Present: soft - *Routine Rectal Exam Visual: Present: normal rectal tone. Absent: heme (+) stool - *Routine Extremities Exam Present: edema Comments: bilat cellulitic changes - *Routine Skin Exam Comments: cellulitis lower ext - *Routine Neurological Exam Present: alert, CN II-XII intact. Absent: sensory deficit, motor deficit - Routine Psychiatric Exam Present: unable to assess Assessment and Plan (1) Lower extremity cellulitis Current visit: Yes Status: Acute Qualifiers: Laterality: unspecified laterality Qualified Code(s): L03.119 - Cellulitis of unspecified part of limb Category: Medical Code(s): L03.119 - Cellulitis of unspecified part of limb (2) Aortic stenosis Current visit: Yes Status: Acute Qualifiers: Cardiac valve disease etiology: etiology unspecified Qualified Code(s): I35.0 - Nonrheumatic aortic (valve) stenosis Category: Medical Code(s): I35.0 - Nonrheumatic aortic (valve) stenosis (3) Anemia Current visit: Yes Status: Acute Qualifiers: Anemia type: unspecified type Qualified Code(s): D64.9 - Anemia, unspecified Category: Medical Code(s): D64.9 - Anemia, unspecified (4) Primary thrombocytopenia, unspecified Current visit: Yes Status: Acute Category: Medical Code(s): D69.49 - Other primary thrombocytopenia (5) Hypokalemia Current visit: Yes Status: Acute Category: Medical Code(s): E87.6 - Hypokalemia (6) Renal insufficiency Current visit: Yes Status: Acute Category: Medical Code(s): N28.9 - Disorder of kidney and ureter, unspecified (7) Elevated troponin Current visit: Yes Status: Acute Category: Medical Code(s): R74.8 - Abnormal levels of other serum enzymes (8) Severe sepsis Current visit: Yes Status: Acute Category: Medical Code(s): A41.9 - Sep sis, unspecified organism; R65.20 - Severe sepsis without septic shock (9) Septic shock Current visit: Yes Status: Acute Category: Medical Code(s): A41.9 - Sepsis, unspecified organism; R65.21 - Severe sepsis with septic shock
--- NOTE | 2018-09-18 14:40 | Pharmacy Consult Notes ---
[facility] Pharmacy VTE Monitoring - Patient Demographics Admission date: 09/17/18 Report Date: 09/18/18 Time: 14:40 Allergies/Adverse Reactions: Patient Allergies aspirin [ASPIRIN] Allergy (Mild, Verified 12/21/17 10:07) Height: 1.91 m Weight: 89.811 kg Patient Problems: Current Active Problems Nausea vomiting and diarrhea (Acute) - VTE Risk Labs: VTE Related Lab Results Hgb 10.4 g/dL (14.1-18.0) L 09/18/18 04:15 Hct 33.0 % (42.0-52.0) L 09/18/18 04:15 Plt Count 54 K/mm3 (142-424) L D 09/18/18 04:15 BUN 25 mg/dL (7-18) H 09/18/18 04:15 Creatinine 1.24 mg/dL (0.70-1.30) 09/18/18 04:15 Estimated Creat Clear 53 mL/min (50-200) 09/18/18 04:15 - Prophylaxis VTE Prophylaxis Ordered?: Yes Types of VTE Prophylaxis: TEDS Knee High Location of Applied Device: Bilateral Lower Extremeties
--- NOTE | 2018-09-19 13:06 | Progress Note ---
Internal Medicine - PN: Subj *Date: 09/19/18 *Time: 09:00 Interval history: doing better - no specific c/o Exam Vital signs and Labs for Last 24 Hours: Temp Pulse Resp BP Pulse Ox 98.0 F 77 18 135/66 98 09/19/18 11:34 09/19/18 11:34 09/19/18 11:34 09/19/18 11:34 09/19/18 11:34 I & O for Last 24 hours: Intake & Output 09/17/18 09/18/18 09/19/18 09/20/18 11:59 11:59 11:59 11:59 Intake Total 240 / 240 1320 / 1320 Output Total 400 / 400 700 / 700 Balance -160 / -160 620 / 620 Weight 198 lb 202 lb 4 oz - Constitutional no acute distress - *Routine HEENT Exam Head: Present: normocephalic, atraumatic Eye: Present: EOMI, PERRL. Absent: conjunctival icterus ENT: Present: mucous membranes dry - *Routine Neck Exam Absent: JVD - *Routine Respiratory Exam Present: decreased breath sounds - *Routine Cardiovascular Exam Present: RRR, murmur - *Routine Abdominal Exam Present: soft - *Routine Extremities Exam Comments: chronic changes - looks better - *Routine Skin Exam Present: erythema Comments: changes lower ext bilat - *Routine Neurological Exam Present: alert, CN II-XII intact - Routine Psychiatric Exam Present: unable to assess Assessment and Plan (1) Lower extremity cellulitis Current visit: Yes Status: Acute Qualifiers: Laterality: unspecified laterality Qualified Code(s): L03.119 - Cellulitis of unspecified part of limb Category: Medical Code(s): L03.119 - Cellulitis of unspecified part of limb (2) Aortic stenosis Current visit: Yes Status: Acute Qualifiers: Cardiac valve disease etiology: etiology unspecified Qualified Code(s): I35.0 - Nonrheumatic aortic (valve) stenosis Category: Medical Code(s): I35.0 - Nonrheumatic aortic (valve) stenosis (3) Anemia Current visit: Yes Status: Acute Qualifiers: Anemia type: unspecified type Qualified Code(s): D64.9 - Anemia, unspecified Category: Medical Code(s): D64.9 - Anemia, unspecified (4) Primary thrombocytopenia, unspecified Current visit: Yes Status: Acute Category: Medical Code(s): D69.49 - Other primary thrombocytopenia (5) Hypokalemia Current visit: Yes Status: Acute Category: Medical Code(s): E87.6 - Hypokalemia (6) Renal insufficiency Current visit: Yes Status: Acute Category: Medical Code(s): N28.9 - Disorder of kidney and ureter, unspecified (7) Elevated troponin Current visit: Yes Status: Acute Category: Medical Code(s): R74.8 - Abnormal levels of other serum enzymes (8) Severe sepsis Current visit: Yes Status: Acute Category: Medical Code(s): A41.9 - Sepsis, unspecified organism; R65.20 - Severe sepsis without septic shock (9) Septic shock Current visit: Yes Status: Acute Category: Medical Code(s): A41.9 - Sepsis, unspecified organism; R65.21 - Severe sepsis with septic shock (10) Cholelithiasis Current visit: Yes Status: Acute Qualifiers: Cholelithiasis location: gallbladder Cholecystitis presence: without cholecystitis Biliary obstruction: without biliary obstruction Qualified Code(s): K80.20 - Calculus of gallbladder without cholecystitis without obstruction Category: Medical Code(s): K80.20 - Calculus of gallbladder without cholecystitis without obstruction (11) Splenomegaly Current visit: Yes Status: Acute Category: Medical Code(s): R16.1 - Splenomegaly, not elsewhere classified (12) Retroperitoneal lymphadenopathy Current visit: Yes Status: Acute Category: Medical Code(s): R59.0 - Localized enlarged lymph nodes
[2018-09-19 13:58] LABS: Calcium 7.6 mg/dL (8.5-10.1)
[2018-09-19 14:04] LABS: Basophils % 0.2 % (0.1-2.0); Eosinophils % 0.2 % (0.1-12.0); Hematocrit 34.7 % (42.0-52.0); Hemoglobin 10.6 g/dL (14.1-18.0); Lymphocytes # 0.5 K/mm3 (0.7-4.5); Lymphocytes % 4.8 % (10-50); Mean Corpuscular HGB Conc 30.5 g/dL (31.8-35.4); Mean Corpuscular Hemoglobin 29.8 pg (27.0-31.2); Mean Corpuscular Volume 97.9 fl (80-94); Mean Platelet Volume 8.7 fl (7.4-10.4); Monocytes # 0.3 K/mm3 (0.1-1.0); Neutrophils # 10.3 K/mm3 (1.8-7.8); Neutrophils % 91.8 % (37.0-80.0); Platelet Count 68 K/mm3 (142-424); Red Blood Count 3.55 M/mm3 (4.60-6.20); Red Cell Distribution Width 15.6 % (11.5-17.5); White Blood Count 11.2 K/mm3 (4.8-10.8)
[2018-09-19 14:12] LABS: INR 1.3 (0.9-1.1); Prothrombin Time 13.3 seconds (9.4-11.8)
[2018-09-19 14:42] LABS: Lymphocytes % 9 % (10-50); Monocytes % 1 % (2-9); Neutrophils % 89 % (42-76); Total Cells Counted 100
[2018-09-19 14:44] LABS: Hypochromasia 1+
[2018-09-19 14:55] LABS: Activated Partial Thrombo Time 40.6 seconds (23.6-34.0)
--- NOTE | 2018-09-20 08:49 | Discharge Summary ---
General - General Admission date:: 09/17/18 Discharge date: 09/20/18 HPI HPI: this wm who is a [facility] at [facility] who had fever and had fall and was sent for eval to the ed -he was found to have cellulitis lower ext and fever with sepsis and assoc shock and admitted for ivf and abx - pt has sig hx of aortic stenosis- Hospital Course Hospital Course: ct abd pelvis...... IMPRESSION......... 1. Cholelithiasis with no biliary ductal dilatation evident. 2. 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 . Vague 2 cm low-density area posterior margin right lobe. Possible nodule versus focal fatty change. Subtle heterogeneous liver architecture *Recommend ultrasound abdomen attention RUQ,. *Suggest follow-up triphasic CT abdomen with contrast to further evaluate liver & other structures in greater detail. 3. Splenomegaly.; 4. . .. Moderate Retroperitoneal adenopathy.... Mildly prominent right inguinal nodes as well. 5. Slight increased fluid throughout small bowel , with scattered small/moderate air-fluid levels within upper normal caliber small bowel. Nonspecific. May reflect mild ileus or early enteritis. --- Other observations 6 . Colonic diverticulosis most evident sigmoid colon. No diverticulitis 7.. Incidental 3 cm bladder diverticulum with some possible calcification. This is at the posterior aspect of this diverticulum 8. suspect Developing right inguinal hernia likely. Objective Vital signs: Temp Pulse Resp BP Pulse Ox 97.6 F 74 17 137/78 98 09/20/18 08:00 09/20/18 08:00 09/20/18 08:00 09/20/18 08:00 09/20/18 08:00 no acute distress - *Routine HEENT Exam Head: Present: normocephalic Eye: Present: PERRL ENT: Present: mucous membranes moist - *Routine Neck Exam Present: supple, full ROM - *Routine Respiratory Exam Present: CTA bilaterally - *Routine Cardiovascular Exam Present: RRR, murmur - *Routine Abdominal Exam Present: soft, normoactive bowel sounds - *Routine Extremities Exam Present: full ROM - *Routine Skin Exam Present: intact, wounds Comments: Left ankle scab present - *Routine Neurological Exam Present: alert, oriented X3 - Routine Psychiatric Exam Present: normal affect Results Labs on day of discharge: Labs from last 24 hours 09/19/18 09/19/18 09/19/18 13:33 13:33 13:33 WBC 11.2 H RBC 3.55 L Hgb 10.6 L Hct 34.7 L MCV 97.9 H MCH 29.8 MCHC 30.5 L RDW 15.6 Plt Count 68 L D MPV 8.7 Neut % (Auto) 91.8 H Lymph % (Auto) 4.8 L [place] % (Auto) 3.0 Eos % (Auto) 0.2 Baso % (Auto) 0.2 Neut # (Auto) 10.3 H Lymph # (Auto) 0.5 L [place] # (Auto) 0.3 Eos # (Auto) 0.0 Baso # (Auto) 0.0 Total Counted 100 Neutrophils % (Manual) 89 H Band Neutrophils % 1.0 Lymphocytes % (Manual) 9 L Monocytes % (Manual) 1 L Platelet Estimate Moderate decrease Hypochromasia 1+ PT 13.3 H INR 1.30 H APTT 40.6 H D Sodium 135 L Potassium 3.0 L Chloride 102 Carbon Dioxide 24 Anion Gap 12.0 BUN 28 H Creatinine 1.31 H Estimated Creat Clear 52 Estimated GFR 52 L Est GFR ( Amer) 63 Glucose 107 H Calcium 7.6 L Preliminary micro results at discharge 09/17/18 18:40 Blood Culture - Preliminary Blood NO GROWTH AFTER 48 HOURS 09/17/18 18:40 Blood Culture - Preliminary Blood NO GROWTH AFTER 48 HOURS - Additional Comments Rounded with Dr. Myers all orders per Lucia DS: Diagnosis - Discharge Diagnosis (1) Lower extremity cellulitis Status: Acute (2) Aortic stenosis Status: Acute (3) Anemia Status: Acute (4) Primary thrombocytopenia, unspecified Status: Acute (5) Hypokalemia Status: Acute (6) Renal insufficiency Status: Acute (7) Elevated troponin Status: Acute (8) Severe sepsis Status: Acute (9) Septic shock Status: Acute (10) Cholelithiasis Status: Acute (11) Splenomegaly Status: Acute (12) Retroperitoneal lymphadenopathy Status: Acute Discharge Plan - Patient Discharge Instructions ACTIVITY: Continue current activity DIET: continue same diet Patient Instructions: Cellulitis, DI for Sepsis -- Adult - Follow up Plan Follow up with: Gareth Myers MD [Primary Care Provider] - Disposition: Home, Self-Jail Medications: Home Medications Medication Instructions Recorded Confirmed Type Acetaminophen [Tylenol Extra 500 mg PO Q6HP PRN 09/14/17 09/17/18 History Strength] Losartan/Hydrochlorothiazide 1 each PO DAILY 09/14/17 09/17/18 History [Losartan-Hctz 50-12.5 mg Tab] Meclizine HCl [Meclizine 12.5mg 12.5 mg PO BID 09/14/17 09/17/18 History Tab] Polyethylene Glycol 3350 [Miralax 17 gm PO NEEDED PRN 09/14/17 09/17/18 History 17gm Packet] Magnesium Oxide [Mgo] 800 mg PO BID 05/18/18 09/17/18 History Pantoprazole Sodium [Protonix 40mg 40 mg PO DAILY 05/18/18 09/17/18 History tablet] Tamsulosin HCl [Flomax 0.4mg 0.4 mg PO HS 05/19/18 09/17/18 History capsule] Mupirocin [Bactroban 2% Ointment 1 applicatio TP TID 07/17/18 09/17/18 History 22gm tube] cephALEXin [Keflex 500mg Cap] 500 mg PO BID 10 Days #20 cap 09/20/18 Rx Prescriptions/Medication Reconciliation: New cephALEXin [Keflex 500mg Cap] 500 mg PO BID 10 Days #20 cap Continue Polyethylene Glycol 3350 [Miralax 17gm Packet] 17 gm PO NEEDED PRN PRN Reason: Constipation Losartan/Hydrochlorothiazide [Losartan-Hctz 50-12.5 mg Tab] 1 each PO DAILY Acetaminophen [Tylenol Extra Strength] 500 mg PO Q6HP PRN PRN Reason: As Needed For Fever Or Pain Magnesium Oxide [Mgo] 800 mg PO BID Tamsulosin HCl [Flomax 0.4mg capsule] 0.4 mg PO HS Mupirocin [Bactroban 2% Ointment 22gm tube] 1 applicatio TP TID Meclizine HCl [Meclizine 12.5mg Tab] 12.5 mg PO BID Pantoprazole Sodium [Protonix 40mg tablet] 40 mg PO DAILY
== END 2018-09-20 15:09 | disposition home or self-care (01) | DRG 602 ==
LOC: ER 17:53 → 2ND 20:12
PROVIDERS: ADMIT Emergency Medicine; ATTEND Emergency Medicine
CPT/HCPCS: 36415; 73620; 74021; 74022; 74176; 80048; 80053; 82272; 83605; 83735; 84484; 85007; 85025; 85610; 85651; 85730; 86140; 87040; 96365; 96366; 96367; 97162; 97166; 99285; G0328; J2405

== ENCOUNTER 2019-05-23 13:06 | Inpatient (IN) ==
--- NOTE | 2019-05-23 13:19 | Emergency Department Note ---
ED Disposition Clinical Impression: Dehydration UTI (urinary tract infection) Qualifiers: Urinary tract infection type: site unspecified Hematuria presence: with hematu kenneth Qualified Code(s): N39.0 - Urinary tract infection, site not specified; R31.9 - Hematuria, unspecified Altered mental status Qualifiers: Altered mental status type: somnolence Qualified Code(s): R40.0 - Somnolence Atrial fibrillation Qualifiers: Atrial fibrillation type: paroxysmal Qualified Code(s): I48.0 - Paroxysmal atrial fibrillation Disposition: Admitted as Observation Condition on Discharge: Fair Referrals: Gareth Myers MD [Primary Care Provider] - - Critical Care Critical Care Time: No Attestation: On , the high probability of a clinically significant, sudden or life threatening deterioration of the following system(s) required my full and direct attention, intervention and personal management. The time I documented below is in addition to time spent performing reported procedures but includes the following listed in this critical care notation. Medical Decision Making - Wolf Inquiry Pt receiving controlled substance: No Vital Signs: 05/23/19 13:08 05/23/19 15:58 Temperature 97.9 F Temperature Source Oral Pulse Rate [Right Radial] 45 L 46 L Respiratory Rate 16 Blood Pressure [Right Arm] 107/45 L 108/61 L Blood Pressure Mean [Right Arm] 65 76 Blood Pressure Source [Right Arm] Automatic Cuff Automatic Cuff Blood Pressure Position [Right Arm] Supine Sitting 02 Sat by Pulse Oximetry 100 100 Oxygen Delivery Method Room Air Room Air - Lab Data Lab Results 05/23/19 13:05: WBC 2.8 L, RBC 3.33 L, Hgb 8.7 L, Hct 28.9 L, MCV 86.6, MCH 26.2 L, MCHC 30.3 L, RDW 19.5 H, Plt Count 63 L, MPV 9.7, Neut % (Auto) 75.9, Lymph % (Auto) 14.4, [place] % (Auto) 7.3, Eos % (Auto) 1.8, Baso % (Auto) 0.6, Neut # (Auto) 2.1, Lymph # (Auto) 0.4 L, [place] # (Auto) 0.2, Eos # (Auto) 0.1, Baso # (Auto) 0.0 05/23/19 13:05: Sodium 135 L, Potassium 4.2, Chloride 98, Carbon Dioxide 26, Anion Gap 15.2 H, BUN 48 H, Creatinine 1.46 H, Estimated Creat Clear 46, Estimated GFR 46 L, Est GFR ( Amer) 55 L, Glucose 135 H, Calcium 9.1 05/23/19 14:28: Total Bilirubin 0.5, Direct Bilirubin 0.2, Indirect Bilirubin 0.3, AST 54 H, ALT 30, Alkaline Phosphatase 91, Troponin I 0.05, Total Protein 6.9, Albumin 2.4 L 05/23/19 14:45: Urine Color Yellow, Urine Appearance Turbid, Urine pH 8.5, Ur Specific [place] 1.010, Urine Protein Trace, Urine Glucose (UA) Negative, Urine Ketones Negative, Urine Blood 3+, Urine Nitrate Negative, Urine Bilirubin Negative, Urine Urobilinogen 1.0, Ur Leukocyte Esterase 3+ A, Urine RBC Occasional, Urine WBC 5-10, Ur Squamous Epith Cells Occasional, Amorphous Sediment 3+, Urine Bacteria 4+ Result diagrams: 05/23/19 13:05 05/23/19 13:05 Orders (Tests/Meds): ED MEDICATIONS Generic Name Dose Route Start Last Admin Trade Name Freq PRN Reason Stop Dose Admin Sodium Chloride 1,000 mls @ 999 mls/hr 05/23/19 15:53 05/23/19 15:57 Sod Chlor 0.9% 1000ml Bag IV 05/23/19 16:53 999 mls/hr .Q1H1M ONE Administration Ceftriaxone Sodium 1 gm/ 50 mls @ 100 mls/hr 05/23/19 16:15 05/23/19 16:19 Sodium Chloride IV 06/06/19 16:14 100 mls/hr Q24H [place] Administration Protocol Sodium Chloride 1,000 mls @ 100 mls/hr 05/23/19 16:15 Sod Chlor 0.9% 1000ml Bag IV 06/22/19 16:14 .Q10H [place] ORDERS Category Date Time Status Lactic Acid Stat Lab 05/23/19 14:15 Received Blood Culture Stat Micro 05/23/19 14:28 Received Urine Culture Stat Micro 05/23/19 14:45 Received - Radiology Data #1 Image(s): Chest Image Reviewed: Yes I have reviewed radiologist's interpretation FINDINGS: There is stable mild enlargement of the cardiac silhouette. The hilar areas and pulmonary vessels are normal. Lungs are moderately hypoaerated. The lungs are clear without infiltrates, suspicious nodules, or pleural effusions. No acute bony abnormalities. IMPRESSION: Mild enlargement of cardiac silhouette accentuated by the hypoaerated lungs. No definite acute process. Dictated by: Keith Oneal 05/23/2019 14:14 Electronically signed by Keith Onela in [place] 05/23/2019 - CT Data CT Scan: Head Time Received: 14:[address] Reviewed: Yes: I have viewed the radiologist's interpretation Preliminary Findings: Normal/NAD - ECG Data Tracing #1 EKG interpreted by Xavier Haro MD: Rhythm: Atrial fibrillation with slow ventricular response Rate: 47 [place]: Left Ectopy: none Conduction: Right bundle branch block, chronic ST Segment Changes: none T Wave Changes: none Q Waves: none No evidence of acute ischemia or injury I do not see a diagnosis of atrial fibrillation listed for the patient, but he had an EKG done here on 04/07/2017 that showed atrial fibrillation. - Physician Consults Physician Consulted: Lucia Time: 16:03 Reason -: Admission Comment/Response: Agrees to admit the patient to the hospital. We discussed the patient's clinical information, including history, exam, laboratory and radiology results and ED course. Per hospital procedure, I will write temporary bridge inpatient orders on the patient. Specific orders requested by the admitting physician: Rocephin, IV fluids General Adult HPI - General Stated complaint: slurred speech, weakness Time Seen by Provider: 05/23/19 13:25 - History of Present Illness HPI narrative: Brought by ambulance from [facility]. Staff reported change in mental status. The patient is slow to respond here but does answer questions appropriately and follows commands. He denies any pain or trouble breathing. He denies any specific complaints at present, states he feels okay. - Related Data Home Medications Medication Instructions Recorded Confirmed Acetaminophen [Tylenol Extra 500 mg PO Q6HP PRN 09/14/17 05/23/19 Strength] Polyethylene Glycol 3350 [Miralax 17 gm PO NEEDED PRN 09/14/17 05/23/19 17gm Packet] Tamsulosin HCl [Flomax 0.4mg 0.4 mg PO HS 05/19/18 05/23/19 capsule] bisacodyl 10 mg rectal suppository 10 mg [place] DAILY PRN 12/29/18 05/23/19 calcium carbonate 200 mg calcium 200 mg PO DAILY PRN tab 12/29/18 05/23/19 (500 mg) chewable tablet risperidone 1 mg tablet 1 mg PO DAILY 12/29/18 05/23/19 risperidone 2 mg tablet 2 mg PO QHS tab 12/29/18 05/23/19 furosemide 40 mg tablet 40 mg PO BID tab 03/17/19 05/23/19 Potassium Chloride [K-Tab ER 10 10 meq PO DAILY 05/23/19 05/23/19 mEq] Spironolactone 50 mg PO DAILY 05/23/19 05/23/19 Allergies Allergy/AdvReac Type Severity Reaction Status Date / Time aspirin [ASPIRIN] Allergy Mild Verified 05/18/19 09:16 [facility] History - Hepatitis A Screen Attestation statement:: This patient has been screened for Hepatitis A risk factors. I have reviewed the patient's past medical history: Yes Medical History: Reports:: Arrhythmia, Carotid Stenosis, Coronary Artery Disease, Heart Murmur, Hyperlipidemia, Hypertension, Peripheral Artery Disease, Peripheral Vascular Disease Denies:: Cancer, Diabetes Mellitus Type 1, Diabetes Mellitus Type 2, Internal Pacemaker, Lung Disease, MRSA, Seizures Other Medical History: Reports: Anemia, Cataracts, Other Comment: 1. Difficult historian. 2. Hypertension. 3. History of palpitations and bradycardia with recommendation for pacemaker in the past, 2013, with refusal per patient. 4. Possible history of cardiomyopathy, history confusing per patient. 5. Gastroesophageal reflux disease. 6. Vertigo. 7. 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 8. Cellulitis. 9. Reported history of peripheral arterial disease and varicose veins with previous evaluation by Dr. Bedolla, vascular surgeon, [facility], 2013. 10. Disability. 11. Peripheral neuropathy. 12. Aortic stenosis, moderate by KATHY measurements with max flow gradient of 3.2 m/s with gradient of 27 mm Hg. But visually felt to be severe, 03/2017. Other Surgeries: Yes: Other (toe amputation). No: Pacemaker Amputation: Yes Fractures: No - Social History Smoking Status: Never smoker Tobacco Type: cigarettes Alcohol Intake: never Substance Use Type: denies use Occupational Status: disabled Housing: assisted living facility Household Members: caregiver Family Hx:: Unable to obtain ROS Obtained: Yes unobtainable due to mental status (Review of systems limited by mental status) Physical Exam - General General appearance: other Comment: Slow to respond to questions. Appears generally weak. - Head Head exam: atraumatic, normocephalic - ENT ENT exam: Present: mucous membranes dry - Neck Neck exam: Present: normal inspection - Chest Chest inspection: Present: normal inspection, symmetric chest wall rise - Respiratory Respiratory exam: Present: normal lung sounds bilaterally. Absent: respiratory distress - Cardiovascular Cardiovascular exam: Present: bradycardia, irregular rhythm, normal heart sounds - Abdominal Exam Abdominal exam: Present: soft, normal bowel sounds. Absent: distention, tenderness, guarding - Extremities Exam Extremities exam: Present: normal capillary refill - Neurological Exam Neurological exam: Absent: motor sensory deficit - Psychiatric Psychiatric exam: Present: flat affect - Skin Skin exam: Present: warm, dry - Other Other exam information: Heel pads present on both feet. Dry bandage present on left foot. Prior amputation of left first and second toes. 2+ edema of both lower legs and feet.
[2019-05-23 13:33] LABS: Basophils % 0.6 % (0.1-2.0); Eosinophils # 0.1 K/mm3 (0.0-0.4); Eosinophils % 1.8 % (0.1-12.0); Hematocrit 28.9 % (42.0-52.0); Hemoglobin 8.7 g/dL (14.1-18.0); Lymphocytes # 0.4 K/mm3 (0.7-4.5); Lymphocytes % 14.4 % (10-50); Mean Corpuscular HGB Conc 30.3 g/dL (31.8-35.4); Mean Corpuscular Volume 86.6 fl (80-94); Mean Platelet Volume 9.7 fl (7.4-10.4); Monocytes # 0.2 K/mm3 (0.1-1.0); Monocytes % 7.3 % (1.7-9.3); Neutrophils # 2.1 K/mm3 (1.8-7.8); Neutrophils % 75.9 % (37.0-80.0); Platelet Count 63 K/mm3 (142-424); Red Blood Count 3.33 M/mm3 (4.60-6.20); Red Cell Distribution Width 19.5 % (11.5-17.5); White Blood Count 2.8 K/mm3 (4.8-10.8)
[2019-05-23 14:50] LABS: Microscopic, Urine URINE MICROSCOPIC (MICROSCOPIC)
[2019-05-23 14:58] LABS: Anion Gap 15.2 mEq/L (5-15); Calcium 9.1 mg/dL (8.5-10.1)
[2019-05-23 14:59] LABS: Appearance,Urine TURBID (Clear); Bilirubin,Urine Negative (Negative); Blood, Urine 3+ (Negative); Color,Urine YELLOW (Yellow); Glucose,Urine (UA) Negative (Negative); Ketones,Urine Negative (Negative); Leukocyte Esterase,Urine 3+ (Negative); PH,Urine 8.5 (5.0-8.5); Protein,Urine TRACE (Negative)
[2019-05-23 15:50] LABS: Albumin Level 2.4 gm/dL (3.4-5.0); Bilirubin,Direct 0.2 mg/dL (0.0-0.2); Bilirubin,Indirect 0.3 mg/dL (0.0-0.9); Bilirubin,Total 0.5 mg/dL (0.2-1.0); Total Protein,Serum 6.9 gm/dL (6.4-8.2)
[2019-05-23 15:55] LABS: Amorphous Sediment,Urine 3+ /lpf; Bacteria,Urine 4+ /lpf; RBC,Urine Occasional #/hpf (0-3); Squamous Epithelial Cell,Urine Occasional #/hpf (0-5)
[2019-05-23 18:15] LABS: Free Thyroxine Index 2.7 ug/dL (5.93-13.13); Thyroid Stimulating Hormone 4.56 uIU/ml (0.358-3.740)
--- NOTE | 2019-05-23 20:04 | Electrocardiograph Report ---
APPROVED REPORT Exam: Resting ECG HR:47 bpm ECG Measurements Heart Rate 47 AXES QRSd 172 QRS -56 QT 570 T103 QTc 504 <Conclusion> Atrial fibrillation with slow ventricular response Right bundle branch block Left anterior fascicular block Old STTW changes Abnormal ECG Electronically signed by : Truong Reyes, 05/23/2019 20:03:35
--- NOTE | 2019-05-23 21:09 | History & Physical Report ---
*Admission Date: 05/23/19 *Chief complaint: altered mental status *History of present illness: this is wm sent from [facility] for eval of change in mental status -pt with no specific c[facility] Staff reported change in mental status. The patient is slow to respond here but does answer questions appropriately and follows commands. He denies any pain or trouble breathing. He denies any specific complaints at present, states he feels okay. pt was found to have abd u/a and wojciech and was admitted for ivf and abx [facility] History I have reviewed the patient's past medical history: Yes Medical History: Reports:: Arrhythmia, Carotid Stenosis, Coronary Artery Disease, Heart Murmur, Hyperlipidemia, Hypertension, Peripheral Artery Disease, Peripheral Vascular Disease Denies:: Cancer, Diabetes Mellitus Type 1, Diabetes Mellitus Type 2, Internal Pacemaker, Lung Disease, MRSA, Seizures *Have you ever received a pneumonia vaccine?: No *Have you received a flu vaccine this season?: No Other Medical History: Reports: Anemia, Cataracts, Other Other Surgeries: Yes: Other (toe amputation). No: Pacemaker Amputation: Yes Fractures: No - *Social History Smoking Status: Never smoker Tobacco Type: cigarettes Alcohol Intake: never Substance Use Type: denies use *Occupational Status:: disabled Housing: jail Household Members: caregiver *Travel in the last 8 weeks: None Family Hx:: Unable to obtain Review of Systems - Review of Systems Review of systems:: pertinent systems reviewed and negative unless documented below - Constitutional Reports malaise - Eyes Denies change in vision - ENT Reports dry mouth - *Cardiovascular Denies shortness of breath - *Respiratory Denies cough - *Gastrointestinal Denies vomiting - *Genitourinary Denies blood in urine, Denies decreased urination - *Musculoskeletal Denies joint pain - Integumentary/Breasts Denies rash - *Neurologic Denies seizure-like activity - Psychiatric Reports confusion Meds Home Medications Medication Instructions Recorded Confirmed Type Acetaminophen [Tylenol Extra 500 mg PO Q6HP PRN 09/14/17 05/23/19 History Strength] Polyethylene Glycol 3350 [Miralax 17 gm PO NEEDED PRN 09/14/17 05/23/19 History 17gm Packet] Tamsulosin HCl [Flomax 0.4mg 0.4 mg PO HS 05/19/18 05/23/19 History capsule] bisacodyl 10 mg rectal suppository 10 mg [place] DAILY PRN 12/29/18 05/23/19 History calcium carbonate 200 mg calcium 200 mg PO DAILY PRN tab 12/29/18 05/23/19 History (500 mg) chewable tablet risperidone 1 mg tablet 1 mg PO DAILY 12/29/18 05/23/19 History risperidone 2 mg tablet 2 mg PO QHS tab 12/29/18 05/23/19 History furosemide 40 mg tablet 40 mg PO BID tab 03/17/19 05/23/19 History Potassium Chloride [K-Tab ER 10 10 meq PO DAILY 05/23/19 05/23/19 History mEq] Spironolactone 50 mg PO DAILY 05/23/19 05/23/19 History Allergies Allergy/AdvReac Type Severity Reaction Status Date / Time aspirin [ASPIRIN] Allergy Mild Verified 05/18/19 09:16 Exam Vital signs and Labs for Last 24 Hours: Temp Pulse Resp BP Pulse Ox 98.0 F 40 L 17 108/46 L 100 05/23/19 17:56 05/23/19 18:24 05/23/19 17:56 05/23/19 17:56 05/23/19 17:56 Laboratory Results - last 24 hr 05/23/19 13:05: WBC 2.8 L, RBC 3.33 L, Hgb 8.7 L, Hct 28.9 L, MCV 86.6, MCH 26.2 L, MCHC 30.3 L, RDW 19.5 H, Plt Count 63 L, MPV 9.7, Neut % (Auto) 75.9, Lymph % (Auto) 14.4, [place] % (Auto) 7.3, Eos % (Auto) 1.8, Baso % (Auto) 0.6, Neut # (Auto) 2.1, Lymph # (Auto) 0.4 L, [place] # (Auto) 0.2, Eos # (Auto) 0.1, Baso # (Auto) 0.0 05/23/19 13:05: Sodium 135 L, Potassium 4.2, Chloride 98, Carbon Dioxide 26, Anion Gap 15.2 H, BUN 48 H, Creatinine 1.46 H, Estimated Creat Clear 46, Estimated GFR 46 L, Est GFR ( Amer) 55 L, Glucose 135 H, Calcium 9.1 05/23/19 14:15: Lactate 2.1 H 05/23/19 14:28: Total Bilirubin 0.5, Direct Bilirubin 0.2, Indirect Bilirubin 0.3, AST 54 H, ALT 30, Alkaline Phosphatase 91, Troponin I 0.05, Total Protein 6.9, Albumin 2.4 L 05/23/19 14:28: TSH 4.56 H, Free T4 Index 2.7 L, Thyroxine (T4) 7.9, T3 Uptake 34 05/23/19 14:45: Urine Color Yellow, Urine Appearance Turbid, Urine pH 8.5, Ur Specific [place] 1.010, Urine Protein Trace, Urine Glucose (UA) Negative, Urine Ketones Negative, Urine Blood 3+, Urine Nitrate Negative, Urine Bilirubin Negative, Urine Urobilinogen 1.0, Ur Leukocyte Esterase 3+ A, Urine RBC Occasional, Urine WBC 5-10, Ur Squamous Epith Cells Occasional, Amorphous Sediment 3+, Urine Bacteria 4+ 05/23/19 18:50: Lactate 1.4 I & O for Last 24 hours: Intake & Output 05/21/19 05/22/19 05/23/19 05/24/19 11:59 11:59 11:59 11:59 Weight 206 lb - Constitutional no acute distress, chronically ill appearing - *Routine HEENT Exam Head: Present: normocephalic Eye: Present: EOMI, PERRL. Absent: conjunctival icterus ENT: Present: mucous membranes dry - *Routine Neck Exam Present: trachea midline. Absent: full ROM, meningismus - *Routine Respiratory Exam Present: decreased breath sounds - *Routine Cardiovascular Exam Present: RRR, murmur, S4 - *Routine Abdominal Exam Present: soft - *Routine Extremities Exam Present: edema - *Routine Skin Exam Comments: has in groin small area on rt - *Routine Neurological Exam Present: altered mental status - Routine Psychiatric Exam Present: unable to assess Assessment and Plan (1) Acute delirium Current visit: No Status: Acute Category: Medical Code(s): R41.0 - Disorientation, unspecified (2) Pancytopenia Current visit: No Status: Acute Category: Medical Code(s): D61.818 - Other pancytopenia (3) WOJCIECH (acute kidney injury) Current visit: No Status: Acute Category: Medical Code(s): N17.9 - Acute kidney failure, unspecified (4) UTI (urinary tract infection) Current visit: No Status: Acute Qualifiers: Urinary tract infection type: site unspecified Hematuria presence: without hematuria Qualified Code(s): N39.0 - Urinary tract infection, site not speci fied Category: Medical Code(s): N39.0 - Urinary tract infection, site not specified (5) Afib Current visit: Yes Status: Acute Qualifiers: Atrial fibrillation type: unspecified persistent Qualified Code(s): I48.19 - Other persistent atrial fibrillation; I48.1 - Persistent atrial fibrillation Category: Medical Code(s): I48.91 - Unspecified atrial fibrillation (6) RBBB (right bundle branch block with left anterior fascicular block) Current visit: Yes Status: Acute Category: Medical Code(s): I45.2 - Bifascicular block
[2019-05-24 06:26] LABS: Basophils % 0.5 % (0.1-2.0); Eosinophils % 1.9 % (0.1-12.0); Hemoglobin 8.3 g/dL (14.1-18.0); Lymphocytes # 0.3 K/mm3 (0.7-4.5); Mean Corpuscular HGB Conc 29.8 g/dL (31.8-35.4); Mean Corpuscular Volume 87.2 fl (80-94); Monocytes # 0.2 K/mm3 (0.1-1.0); Monocytes % 7.9 % (1.7-9.3); Neutrophils # 1.6 K/mm3 (1.8-7.8); Neutrophils % 75.7 % (37.0-80.0); Red Blood Count 3.21 M/mm3 (4.60-6.20); Red Cell Distribution Width 19.5 % (11.5-17.5)
[2019-05-24 06:29] LABS: Platelet Count 47 K/mm3 (142-424)
[2019-05-24 06:37] LABS: Anion Gap 11.8 mEq/L (5-15); Calcium 8.2 mg/dL (8.5-10.1)
--- NOTE | 2019-05-24 07:43 | Sepsis Event Note ---
Tissue Perfusion Evaluation Sepsis Re-Evaluation Performed: Yes Date Performed: 05/24/19 Time Performed: 07:43 Sepsis Follow-Up: Yes: Respiratory exam, Cardiovascular exam, Peripheral pulse location, Vital Signs Most Recent Vital Signs: Temperature 92.0 F L 05/24/19 06:50 Temperature Source Rectal 05/24/19 06:50 Pulse Rate 82 05/24/19 07:05 Respiratory Rate 16 05/24/19 07:05 Blood Pressure 90/39 L 05/24/19 07:05 Blood Pressure Mean 56 05/24/19 07:05 Blood Pressure Source Automatic Cuff 05/24/19 07:05 Blood Pressure Position Left Lateral 05/24/19 07:05 02 Sat by Pulse Oximetry 100 05/24/19 07:05 Oxygen Delivery Method 05/24/19 07:05
--- NOTE | 2019-05-24 07:48 | Pharmacy Consult Notes ---
[facility] Pharmacy VTE Monitoring - Patient Demographics Admission date: 05/23/19 Report Date: 05/24/19 Time: 07:48 Allergies/Adverse Reactions: Patient Allergies aspirin [ASPIRIN] Allergy (Mild, Verified 05/18/19 09:16) Height: 1.85 m Weight: 93.44 kg Patient Problems: Current Active Problems Dehydration (Acute) Altered mental status (Acute) Atrial fibrillation (Acute) Urinary tract infection (Acute) - VTE Risk Labs: VTE Related Lab Results Hgb 8.3 g/dL (14.1-18.0) L 05/24/19 05:34 Hct 28.0 % (42.0-52.0) L 05/24/19 05:34 Plt Count 47 K/mm3 (142-424) L* D 05/24/19 05:34 BUN 41 mg/dL (7-18) H 05/24/19 05:34 Creatinine 1.12 mg/dL (0.70-1.30) D 05/24/19 05:34 Estimated Creat Clear 61 mL/min (50-200) 05/24/19 05:34 Was VTE Risk Assessment Performed: Yes VTE Score: 4 VTE Risk Level: Low Risk Clinical Trial Participant: No - Prophylaxis VTE Prophylaxis Ordered?: Yes Types of VTE Prophylaxis: TEDS Knee High Location of Applied Device: Not Applicable
--- NOTE | 2019-05-24 09:47 | Consult Report ---
History of Present Illness Consult date: 05/24/19 Requesting physician: Gareth Myers Consult reason: atrial fibrillation, known to you Chief complaint: Mental status changes Additional Medical History:: 1. Coronary artery disease 2. Hypertension 3. Hyperlipidemia 4. Carotid artery stenosis 5. Peripheral arterial disease 6. Severe aortic stenosis History of present illness: This is an 88-year-old white gentleman who was sent to the ER via ambulance from [facility] due to mental status changes. When the patient arrived at the emergency department he was slow to respond but was answering questions appropriately and following commands. During his emergency department evaluation he denied any chest pain or pressure. He denied any shortness of breath or edema. The patient had no specific complaints and stated he felt okay. He was found to have a UTI and acute kidney injury. The patient does have chronic atrial fibrillation with a heart rate typically in the 40s and 50s. He has historically refused a pacemaker placement in the past. Around 2 AM this morning the patient became hypotensive and his temperature dropped down to 88 F. This morning the patient is unable to answer any of my questions or follow any commands. He is not opening his eyes to me calling his name. He has been started on a dopamine drip due to his hypotension. He is currently at 10 mcg of Dopamine and his blood pressure is 93/36. His heart rate has jumped up to between 80 and 107. The patient is currently getting IV fluids and antibiotics for his UTI and sepsis. I am unable to complete a review of systems at this time as the patient is not responding to any questions or following any commands. [facility] History I have reviewed the patient's past medical history: Yes Medical History: Reports:: Arrhythmia, Carotid Stenosis, Coronary Artery Disease, Heart Murmur, Hyperlipidemia, Hypertension, Peripheral Artery Disease, Peripheral Vascular Disease Denies:: Cancer, Diabetes Mellitus Type 1, Diabetes Mellitus Type 2, Internal Pacemaker, Lung Disease, MRSA, Seizures *Have you ever received a pneumonia vaccine?: No *Have you received a flu vaccine this season?: No Other Medical History: Reports: Anemia, Cataracts, Other Other Surgeries: Yes: Other (toe amputation). No: Pacemaker Amputation: Yes Fractures: No - *Social History Smoking Status: Never smoker Tobacco Type: cigarettes Alcohol Intake: never Substance Use Type: denies use *Occupational Status:: disabled Housing: correction Household Members: caregiver *Travel in the last 8 weeks: None Family Hx:: Unable to obtain Meds Home Medications Medication Instructions Recorded Confirmed Type Acetaminophen [Tylenol Extra 500 mg PO Q6HP PRN 09/14/17 05/23/19 History Strength] Polyethylene Glycol 3350 [Miralax 17 gm PO DAILYP PRN 09/14/17 05/24/19 History 17gm Packet] Tamsulosin HCl [Flomax 0.4mg 0.4 mg PO QPMWM 05/19/18 05/24/19 History capsule] bisacodyl 10 mg rectal suppository 10 mg OK DAILY PRN 12/29/18 05/23/19 History calcium carbonate 200 mg calcium 200 mg PO DAILY PRN tab 12/29/18 05/23/19 History (500 mg) chewable tablet risperidone 1 mg tablet 1 mg PO DAILY 12/29/18 05/23/19 History risperidone 2 mg tablet 2 mg PO QPMWM tab 12/29/18 05/24/19 History furosemide 40 mg tablet 40 mg PO BID tab 03/17/19 05/23/19 History Potassium Chloride [K-Tab ER 10 10 meq PO DAILY 05/23/19 05/23/19 History mEq] Spironolactone 50 mg PO DAILY 05/23/19 05/23/19 History Allergies Allergy/AdvReac Type Severity Reaction Status Date / Time aspirin [ASPIRIN] Allergy Mild Verified 05/18/19 09:16 Review of Systems - Review of Systems Review of systems:: unable to obtain - *Neurologic Reports confusion, Denies seizure-like activity Exam Vital signs and Labs for Last 24 Hours: Temp Pulse Resp BP Pulse Ox 95.3 F L 99 H 16 86/43 L 100 05/24/19 08:00 05/24/19 08:30 05/24/19 08:30 05/24/19 08:30 05/24/19 08:30 Laboratory Results - last 24 hr 05/23/19 13:05: WBC 2.8 L, RBC 3.33 L, Hgb 8.7 L, Hct 28.9 L, MCV 86.6, MCH 26.2 L, MCHC 30.3 L, RDW 19.5 H, Plt Count 63 L, MPV 9.7, Neut % (Auto) 75.9, Lymph % (Auto) 14.4, [place] % (Auto) 7.3, Eos % (Auto) 1.8, Baso % (Auto) 0.6, Neut # (Auto) 2.1, Lymph # (Auto) 0.4 L, [place] # (Auto) 0.2, Eos # (Auto) 0.1, Baso # (Auto) 0.0 05/23/19 13:05: Sodium 135 L, Potassium 4.2, Chloride 98, Carbon Dioxide 26, Anion Gap 15.2 H, BUN 48 H, Creatinine 1.46 H, Estimated Creat Clear 46, Estimated GFR 46 L, Est GFR ( Amer) 55 L, Glucose 135 H, Calcium 9.1 05/23/19 14:15: Lactate 2.1 H 05/23/19 14:28: Total Bilirubin 0.5, Direct Bilirubin 0.2, Indirect Bilirubin 0.3, AST 54 H, ALT 30, Alkaline Phosphatase 91, Troponin I 0.05, Total Protein 6.9, Albumin 2.4 L 05/23/19 14:28: TSH 4.56 H, Free T4 Index 2.7 L, Thyroxine (T4) 7.9, T3 Uptake 34 05/23/19 14:45: Urine Color Yellow, Urine Appearance Turbid, Urine pH 8.5, Ur Specific [place] 1.010, Urine Protein Trace, Urine Glucose (UA) Negative, Urine Ketones Negative, Urine Blood 3+, Urine Nitrate Negative, Urine Bilirubin Negative, Urine Urobilinogen 1.0, Ur Leukocyte Esterase 3+ A, Urine RBC Occasional, Urine WBC 5-10, Ur Squamous Epith Cells Occasional, Amorphous Sediment 3+, Urine Bacteria 4+ 05/23/19 18:50: Lactate 1.4 05/24/19 05:34: WBC 2.0 L D, RBC 3.21 L, Hgb 8.3 L, Hct 28.0 L, MCV 87.2, MCH 26.0 L, MCHC 29.8 L, RDW 19.5 H, Plt Count 47 L* D, MPV 10.0, Neut % (Auto) 75.7, Lymph % (Auto) 14.0, [place] % (Auto) 7.9, Eos % (Auto) 1.9, Baso % (Auto) 0.5, Neut # (Auto) 1.6 L, Lymph # (Auto) 0.3 L, [place] # (Auto) 0.2, Eos # (Auto) 0.0, Baso # (Auto) 0.0 05/24/19 05:34: Sodium 139, Potassium 3.8, Chloride 104, Carbon Dioxide 27, Anion Gap 11.8, BUN 41 H, Creatinine 1.12 D, Estimated Creat Clear 61, Estimated GFR 62, Est GFR ( Amer) 75 D, Glucose 91 D, Calcium 8.2 L I & O for Last 24 hours: Intake & Output 05/21/19 05/22/19 05/23/19 05/24/19 23:59 23:59 23:59 23:59 Intake Total 0 / 0 Output Total 1000 / 1000 Balance -1000 / -1000 Weight 206 lb Narrative: His EKG shows atrial fibrillation with a rate of 47. There is right bundle branch block, left anterior hemiblock and bifascicular block. There is old septal NH pattern and lateral T wave abnormalities. His telemetry strip shows atrial fibrillation with a rate of 89. - Constitutional average body habitus, chronically ill appearing - *Routine HEENT Exam Head: Present: normocephalic, atraumatic Eye: Present: EOMI, PERRL ENT: Present: mucous membranes moist - *Routine Neck Exam Present: supple. Absent: JVD, carotid bruit, lymphadenopathy - *Routine Respiratory Exam Present: CTA bilaterally - *Routine Cardiovascular Exam Present: Normal S1, Normal S2, murmur, irregularly irregular - *Routine Abdominal Exam Present: soft. Absent: normoactive bowel sounds (hypoactive), tenderness, distended - *Routine Extremities Exam Present: pulses intact. Absent: cyanosis, clubbing, edema - *Routine Skin Exam Present: erythema, dry, pallor, wounds (Wounds to the bilateral heels, buttocks region and penis). Absent: rash - *Routine Neurological Exam Present: altered mental status - Routine Psychiatric Exam Present: unable to assess - Detailed Eye Exam Eyelids: Left normal inspection Assessment and Plan (1) Sepsis associated hypotension Current visit: Yes Status: Acute Category: Medical Code(s): A41.9 - Sepsis, unspecified organism; I95.9 - Hypotension, unspecified (2) Acute delirium Current visit: No Status: Acute Category: Medical Code(s): R41.0 - Disorientation, unspecified (3) Pancytopenia Current visit: No Status: Acute Category: Medical Code(s): D61.818 - Other pancytopenia (4) WOJCIECH (acute kidney injury) Current visit: No Status: Acute Category: Medical Code(s): N17.9 - Acute kidney failure, unspecified (5) UTI (urinary tract infection) Current visit: No Status: Acute Qualifiers: Urinary tract infection type: site unspecified Hematuria presence: without hematuria Qualified Code(s): N39.0 - Urinary tract infection, site not specified Category: Medical Code(s): N39.0 - Urinary tract infection, site not specified (6) Afib Current visit: No Status: Acute Qualifiers: Atrial fibrillation type: unspecified persistent Qualified Code(s): I48.19 - Other persistent atrial fibrillation; I48.1 - Persistent atrial fibrillation Category: Medical Code(s): I48.91 - Unspecified atrial fibrillation (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) Current visit: No Status: Acute Category: Medical Code(s): I45.2 - Bifascicular block (8) Altered mental status Current visit: Yes Status: Acute Qualifiers: Altered mental status type: somnolence Qualified Code(s): R40.0 - Somnolence Category: Medical Code(s): R41.82 - Altered mental status, unspecified (9) Aortic stenosis Current visit: No Status: Chronic Qualifiers: Cardiac valve disease etiology: etiology unspecified Qualified Code(s): I35.0 - Nonrheumatic aortic (valve) stenosis Category: Medical Code(s): I35.0 - Nonrheumatic aortic (valve) stenosis (10) Diastolic dysfunction Current visit: No Status: Chronic Category: Medical Code(s): I51.89 - Other ill-defined heart diseases (11) HTN (hypertension) Current visit: No Status: Chronic Qualifiers: Hypertension type: essential hypertension Qualified Code(s): I10 - Essential (primary) hypertension Category: Medical Code(s): I10 - Essential (primary) hypertension (12) PAD (peripheral artery disease) Current visit: No Status: Chronic Category: Medical Code(s): I73.9 - Peripheral vascular disease, unspecified - Assessment and plan all Dx Assessment and Plan for all problems:: Plan: 1. The patient was admitted to the hospital from [facility] for mental status changes. The patient did become hypotensive around 2 AM this morning and his temperature dropped down to 88 degrees. He does have a bear hugger in place at this time and his temperature has improved to around 94 degrees. 2. Due to his hypotension the patient was started on a dopamine drip last night. He is at 10 mcg on the dopamine. His blood pressure is around 93/36. His heart rate has also gone up since being on the dopamine. His heart rate is anywhere from 80 to 107. But this is stable. No changes. 3. The patient does have chronic atrial fibrillation which is currently rate controlled. His heart rate is usually in the 40s and 50s. The patient has historically refused pacemaker placement. We will continue to follow his heart rate closely. 4. The patient is septic likely from his UTI. He is getting antibiotics and fluids per his primary care provider. Will defer. 5. The patient does have a history of severe aortic stenosis and mild mitral regurgitation. At this time given his age and sepsis as well as his declining health, we will proceed with conservative and palliative care from a cardiac standpoint. The patient is most likely at the end of life so we will continue with conservative medical management and palliative care at this time. 6. The patient does have a history of coronary artery disease. No plans for invasive cardiac testing at this time. 7. His LDL goal is less than 55. 8. The patient does have multiple wounds all over his body. He has wounds to his heels, his blood talks and penis. The patient came up from the correction with these wounds. Will defer management of this to his primary care provider as well. 9. Further recommendations will be made pending the patient's response to treatment. As mentioned above from a cardiac standpoint recommend conservative and palliative care only. Thank you for the opportunity to help participate in the care of this patient.
[2019-05-24 11:16] LABS: Basophils % 0.2 % (0.1-2.0); Eosinophils % 0.5 % (0.1-12.0); Hematocrit 25.8 % (42.0-52.0); Lymphocytes # 0.3 K/mm3 (0.7-4.5); Lymphocytes % 8.5 % (10-50); Mean Corpuscular HGB Conc 30.1 g/dL (31.8-35.4); Mean Corpuscular Volume 86.4 fl (80-94); Mean Platelet Volume 9.3 fl (7.4-10.4); Monocytes # 0.3 K/mm3 (0.1-1.0); Monocytes % 8.6 % (1.7-9.3); Neutrophils # 2.9 K/mm3 (1.8-7.8); Neutrophils % 82.2 % (37.0-80.0); Platelet Count 64 K/mm3 (142-424); Red Blood Count 2.99 M/mm3 (4.60-6.20); Red Cell Distribution Width 19.8 % (11.5-17.5); White Blood Count 3.5 K/mm3 (4.8-10.8)
[2019-05-24 11:19] LABS: Hemoglobin 7.8 g/dL (14.1-18.0)
[2019-05-24 11:25] LABS: Albumin Level 2.1 gm/dL (3.4-5.0); Albumin/Globulin Ratio 0.5 (1.1-1.8); Anion Gap 12.4 mEq/L (5-15); Bilirubin,Total 0.6 mg/dL (0.2-1.0); C-Reactive Protein 4.1 mg/dL (0.0-0.9); Total Protein,Serum 6.1 gm/dL (6.4-8.2)
[2019-05-24 11:31] LABS: Calcium 7.3 mg/dL (8.5-10.1)
--- NOTE | 2019-05-24 11:38 | Consult Report ---
*Admission Date: 05/23/19 <Tia Brown - 05/24/19 12:41> *Reason for consult:: bilateral draining foot ulcers <Tia Brown - 05/24/19 12:41> *History of present illness: 88 yr. male admitted 05/23/19 for altered mental status by ambulance from [facility]. Patient has a medical history of : Arrhythmia, Carotid Stenosis, Coronary Artery Disease, Heart Murmur, Hyperlipidemia, Hypertension, Peripheral Artery Disease, Peripheral Vascular Disease. 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 Denies: Cancer, Diabetes Mellitus Type 1, Diabetes Mellitus Type 2, Internal pacemaker, Lung Disease, MRSA, Seizures. <Tia Brown - 05/24/19 12:41> Review of Systems - Constitutional Reports malaise, Reports weakness <Tia Brown 05/24/19 12:41> Comments: Patient resting in bed, appears very weak, non-communicative, not responding to verbal commands. <Tia Brown 05/24/19 12:41> - Eyes Comments: unable to determine at this time. <Tia Brown - 05/24/19 12:41> - ENT Reports dry mouth <Tia Brown 05/24/19 12:41> - *Cardiovascular Reports leg sores, Reports rapid, pounding, or irregular heartbeat, Reports foot swelling <Tia Brown 05/24/19 12:41> - *Musculoskeletal Comments: Decreased muscle strength b/l, decreased arch height b/l, no pedal or lower extremity hair growth, cool, skin temp on extremities. Palpable, decreased DP/PT pulses, CFTwnl, <Tia Brown - 05/24/19 12:41> - Integumentary/Breasts Reports hair loss, Reports change in skin color, Reports dry skin, Reports lesions, Reports skin ulcer <Tia Brown 05/24/19 12:41> Comments: B/L feet and lower extremities has very dry and cracked skin, the right great tip of toe has an black spot measuring (2.0x0.3) no drainage noted, right 2nd MPJ is red and swollen, Toe nails are yellow, thick and dystrophic. Right heel has a pressure ulcer has indistinct edges, yellow and brown eschar noted to the wound bed, ulcer measuring (2.3x2.0x0.2) small amount of brown drainage was noted to the dressing. Erythema and non-pitting edema noted to the skin surrounding the ulcer. The Left heel has a pressure ulcer with indistinct edges, beefy red wound bed covered with yellow ecshar measuring (6.2x2.2x0.3) small amount of drainage noted to the dressing or site, erythema and non-pitting edema noted to the skin surrounding the ulcer. 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 *Right heel ulcer was dressed with a polymem and covered with a Tegaderm *Left heel ulcer was dressing with a polymem/abd pad and soft roll. Both heels should be kept elevated/extend off the pillow at all times. <Tia Brown 05/24/19 12:41> - *Neurologic Denies seizure-like activity <Tia Brown 05/24/19 12:41> Comments: Patient was non-communicative this morning, unable to respond to questions or follow verbal commands. <Tia Brown 05/24/19 12:41> - Psychiatric Reports confusion <Tia Brown 05/24/19 12:41> - Endocrine Reports cold intolerance, Reports rapid, pounding, or irregular heartbeat <Tia Brown 05/24/19 12:41> Comments: Nurse reports patient is Hypotensive with a BP of 93/36 this am, also he was having some trouble keeping of his body temp. of 88 degrees.Patient now has a heating blanket on him. <Tia Brown 05/24/19 12:41> - Allergic/Immunologic Comments: Plan: Infection lab panel to be drawn ( ESR,CMP,CBC,CRP), b/L 3-view foot xrays to r/o bone infection and see the extent of infection, TRACY (Arterial lower extremiy study). May alter plan according to results of the labs and studies. <Tia Brown 05/24/19 12:41> [facility] History Medical History: Reports:: Arrhythmia, Carotid Stenosis, Coronary Artery Disease, Heart Murmur, Hyperlipidemia, Hypertension, Peripheral Artery Disease, Peripheral Vascular Disease Denies:: Cancer, Diabetes Mellitus Type 1, Diabetes Mellitus Type 2, Internal Pacemaker, Lung Disease, MRSA, Seizures <Tia Brown 05/24/19 12:41> *Have you ever received a pneumonia vaccine?: No <Tia Brown 05/24/19 12:41> *Have you received a flu vaccine this season?: No <Tia Brown 05/24/19 12:41> Other Medical History: Reports: Anemia, Cataracts, Other <StephanieTia Wolff 05/24/19 12:41> Other Surgeries: Yes: Other (toe amputation). No: Pacemaker <StephanieTia Wolff 05/24/19 12:41> Amputation: Yes <StephanieTia Wolff 05/24/19 12:41> Fractures: No <StephanieTia Wolff 05/24/19 12:41> - *Social History Smoking Status: Never smoker <StephanieTia Wolff 05/24/19 12:41> Tobacco Type: cigarettes <StephanieTia Wolff 05/24/19 12:41> Alcohol Intake: never <StephanieTia Wolff 05/24/19 12:41> Substance Use Type: denies use <StephanieTia Wolff 05/24/19 12:41> *Occupational Status:: disabled <StephanieTia Wolff 05/24/19 12:41> Housing: [facility] <StephanieTia Wolff 05/24/19 12:41> Household Members: caregiver <StephanieTia Wolff 05/24/19 12:41> *Travel in the last 8 weeks: None <KarmachloeTia Wolff 05/24/19 12:41> Family Hx:: Unable to obtain <LicoucheTia Wolff 05/24/19 12:41> Meds Home Medications Medication Instructions Recorded Confirmed Type Acetaminophen [Tylenol Extra 500 mg PO Q6HP PRN 09/14/17 05/23/19 History Strength] Polyethylene Glycol 3350 [Miralax 17 gm PO DAILYP PRN 09/14/17 05/24/19 History 17gm Packet] Tamsulosin HCl [Flomax 0.4mg 0.4 mg PO QPMWM 05/19/18 05/24/19 History capsule] bisacodyl 10 mg rectal suppository 10 mg MO DAILY PRN 12/29/18 05/23/19 History calcium carbonate 200 mg calcium 200 mg PO DAILY PRN tab 12/29/18 05/23/19 History (500 mg) chewable tablet risperidone 1 mg tablet 1 mg PO DAILY 12/29/18 05/23/19 History risperidone 2 mg tablet 2 mg PO QPMWM tab 12/29/18 05/24/19 History furosemide 40 mg tablet 40 mg PO BID tab 03/17/19 05/23/19 History Potassium Chloride [K-Tab ER 10 10 meq PO DAILY 05/23/19 05/23/19 History mEq] Spironolactone 50 mg PO DAILY 05/23/19 05/23/19 History <Rae Mars - 05/25/19 18:34> Allergies Allergy/AdvReac Type Severity Reaction Status Date / Time aspirin [ASPIRIN] Allergy Mild Verified 05/18/19 09:16 <Rae Mars - 05/25/19 18:34> Exam Vital signs and Labs for Last 24 Hours: Temp Pulse Resp BP Pulse Ox 97.9 F 79 12 121/63 99 05/25/19 16:00 05/25/19 18:00 05/25/19 18:00 05/25/19 18:00 05/25/19 18:00 Laboratory Results - last 24 hr 05/24/19 13:13: Crossmatch (AHG) See Detail 05/24/19 21:16: Hgb 9.5 L D, Hct 31.4 L <Rae Mars - 05/25/19 18:34> Temp Pulse Resp BP Pulse Ox 98.5 F 88 16 89/39 L 97 05/24/19 10:30 05/24/19 10:30 05/24/19 10:30 05/24/19 10:30 05/24/19 10:30 Laboratory Results - last 24 hr 05/23/19 13:05: WBC 2.8 L, RBC 3.33 L, Hgb 8.7 L, Hct 28.9 L, MCV 86.6, MCH 26.2 L, MCHC 30.3 L, RDW 19.5 H, Plt Count 63 L, MPV 9.7, Neut % (Auto) 75.9, Lymph % (Auto) 14.4, Bennett % (Auto) 7.3, Eos % (Auto) 1.8, Baso % (Auto) 0.6, Neut # (Auto) 2.1, Lymph # (Auto) 0.4 L, Bennett # (Auto) 0.2, Eos # (Auto) 0.1, Baso # (Auto) 0.0 05/23/19 13:05: Sodium 135 L, Potassium 4.2, Chloride 98, Carbon Dioxide 26, Anion Gap 15.2 H, BUN 48 H, Creatinine 1.46 H, Estimated Creat Clear 46, Estimated GFR 46 L, Est GFR ( Amer) 55 L, Glucose 135 H, Calcium 9.1 05/23/19 14:15: Lactate 2.1 H 05/23/19 14:28: Total Bilirubin 0.5, Direct Bilirubin 0.2, Indirect Bilirubin 0.3, AST 54 H, ALT 30, Alkaline Phosphatase 91, Troponin I 0.05, Total Protein 6.9, Albumin 2.4 L 05/23/19 14:28: TSH 4.56 H, Free T4 Index 2.7 L, Thyroxine (T4) 7.9, T3 Uptake 34 05/23/19 14:45: Urine Color Yellow, Urine Appearance Turbid, Urine pH 8.5, Ur Specific [place] 1.010, Urine Protein Trace, Urine Glucose (UA) Negative, Urine Ketones Negative, Urine Blood 3+, Urine Nitrate Negative, Urine Bilirubin Negative, Urine Urobilinogen 1.0, Ur Leukocyte Esterase 3+ A, Urine RBC Occasional, Urine WBC 5-10, Ur Squamous Epith Cells Occasional, Amorphous Sediment 3+, Urine Bacteria 4+ 05/23/19 18:50: Lactate 1.4 05/24/19 05:34: WBC 2.0 L D, RBC 3.21 L, Hgb 8.3 L, Hct 28.0 L, MCV 87.2, MCH 26.0 L, MCHC 29.8 L, RDW 19.5 H, Plt Count 47 L* D, MPV 10.0, Neut % (Auto) 75.7, Lymph % (Auto) 14.0, Bennett % (Auto) 7.9, Eos % (Auto) 1.9, Baso % (Auto) 0.5, Neut # (Auto) 1.6 L, Lymph # (Auto) 0.3 L, Bennett # (Auto) 0.2, Eos # (Auto) 0.0, Baso # (Auto) 0.0 05/24/19 05:34: Sodium 139, Potassium 3.8, Chloride 104, Carbon Dioxide 27, Anion Gap 11.8, BUN 41 H, Creatinine 1.12 D, Estimated Creat Clear 61, Estimated GFR 62, Est GFR ( Amer) 75 D, Glucose 91 D, Calcium 8.2 L 05/24/19 10:45: WBC 3.5 L D, RBC 2.99 L, Hgb 7.8 L*, Hct 25.8 L, MCV 86.4, MCH 26.0 L, MCHC 30.1 L, RDW 19.8 H, Plt Count 64 L D, MPV 9.3, Neut % (Auto) 82.2 H , Lymph % (Auto) 8.5 L, Bennett % (Auto) 8.6, Eos % (Auto) 0.5, Baso % (Auto) 0.2, Neut # (Auto) 2.9, Lymph # (Auto) 0.3 L, Bennett # (Auto) 0.3, Eos # (Auto) 0.0, Baso # (Auto) 0.0 05/24/19 10:45: Sodium 139, Potassium 4.4, Chloride 105, Carbon Dioxide 26, Anion Gap 12.4, BUN 43 H, Creatinine 1.25, Estimated Creat Clear 55, Estimated GFR 55 L, Est GFR ( Amer) 66, Glucose 84, Total Bilirubin 0.6, AST 58 H, ALT 26, Alkaline Phosphatase 67, C-Reactive Protein 4.1 H, Total Protein 6.1 L, Albumin 2.1 L D, Globulin 4.0 H, Albumin/Globulin Ratio 0.5 L <Tia Brown L - 05/24/19 12:41> I & O for Last 24 hours: Intake & Output 05/23/19 05/24/19 05/25/19 05/26/19 11:59 11:59 11:59 11:59 Intake Total 0 / 0 2860 / 2860 1127 / 1127 Output Total 1000 / 1000 2550 / 2550 Balance -1000 / -1000 310 / 310 1127 / 1127 Weight 206 lb 210 lb 8 oz <Rae Mars - 05/25/19 18:34> Intake & Output 05/21/19 05/22/19 05/23/19 05/24/19 23:59 23:59 23:59 23:59 Intake Total 0 / 0 Output Total 1000 / 1000 Balance -1000 / -1000 Weight 206 lb <Tia Brown - 05/24/19 12:41> Microbiology Reports for the Last 24 Hours: Microbiology 05/23/19 14:15 Blood Blood Culture - Preliminary NO GROWTH AFTER 48 HOURS 05/23/19 14:28 Blood Blood Culture - Preliminary NO GROWTH AFTER 48 HOURS 05/23/19 14:45 Urine,Catheterized Urine Culture - Preliminary 05/24/19 10:05 Foot,Left - Wound Gram Stain - Final 05/24/19 10:05 Foot,Left - Wound Wound Culture - Preliminary 05/24/19 10:05 Foot,Right - Wound Gram Stain - Final 05/24/19 10:05 Foot,Right - Wound Wound Culture - Preliminary 05/24/19 03:00 Buttock - Wound Gram Stain - Final 05/24/19 03:00 Buttock - Wound Wound Culture - Preliminary <Rae Mars - 05/25/19 18:34> Results - Labs Result Diagrams: 05/24/19 21:16 05/24/19 10:45 <Rae Mars - 05/25/19 18:34> Labs: Abnormal lab results 05/24/19 05/24/19 Range/Units 13:13 21:16 Hgb 9.5 L D (14.1-18.0) g/dL Hct 31.4 L (42.0-52.0) % Crossmatch (AHG) See Detail H & H 05/23/19 05/24/19 05/24/19 Range/Units 13:05 05:34 10:45 Hgb 8.7 L 8.3 L 7.8 L* (14.1-18.0) g/dL Hct 28.9 L 28.0 L 25.8 L (42.0-52.0) % 05/24/19 Range/Units 21:16 Hgb 9.5 L D (14.1-18.0) g/dL Hct 31.4 L (42.0-52.0) % All other labs normal. <Rae Mars - 05/25/19 18:34> Abnormal lab results 05/23/19 05/23/19 05/23/19 Range/Units 13:05 13:05 14:15 WBC 2.8 L (4.8-10.8) K/mm3 RBC 3.33 L (4.60-6.20) M/mm3 Hgb 8.7 L (14.1-18.0) g/dL Hct 28.9 L (42.0-52.0) % MCH 26.2 L (27.0-31.2) pg MCHC 30.3 L (31.8-35.4) g/dL RDW 19.5 H (11.5-17.5) % Plt Count 63 L (142-424) K/mm3 Neut % (Auto) (37.0-80.0) % Lymph % (Auto) (10-50) % Neut # (Auto) (1.8-7.8) K/mm3 Lymph # (Auto) 0.4 L (0.7-4.5) K/mm3 Sodium 135 L (136-145) mmol/L Anion Gap 15.2 H (5-15) mEq/L BUN 48 H (7-18) mg/dL Creatinine 1.46 H (0.70-1.30) mg/dL Estimated GFR 46 L (>60) ml/min Est GFR ( Amer) 55 L (>60) ML/MIN Glucose 135 H (74-106) mg/dL Lactate 2.1 H (0.4-2.0) mmol/L Calcium (8.5-10.1) mg/dL AST (15-37) U/L C-Reactive Protein (0.0-0.9) mg/dL Total Protein (6.4-8.2) gm/dL Albumin (3.4-5.0) gm/dL Globulin (1.3-3.2) gm/dl Albumin/Globulin Ratio (1.1-1.8) TSH (0.358-3.740) uIU/ml Free T4 Index (5.93-13.13) ug/dL Ur Leukocyte Esterase (Negative) 05/23/19 05/23/19 05/23/19 Range/Units 14:28 14:28 14:45 WBC (4.8-10.8) K/mm3 RBC (4.60-6.20) M/mm3 Hgb (14.1-18.0) g/dL Hct (42.0-52.0) % MCH (27.0-31.2) pg MCHC (31.8-35.4) g/dL RDW (11.5-17.5) % Plt Count (142-424) K/mm3 Neut % (Auto) (37.0-80.0) % Lymph % (Auto) (10-50) % Neut # (Auto) (1.8-7.8) K/mm3 Lymph # (Auto) (0.7-4.5) K/mm3 Sodium (136-145) mmol/L Anion Gap (5-15) mEq/L BUN (7-18) mg/dL Creatinine (0.70-1.30) mg/dL Estimated GFR (>60) ml/min Est GFR ( Amer) (>60) ML/MIN Glucose (74-106) mg/dL Lactate (0.4-2.0) mmol/L Calcium (8.5-10.1) mg/dL AST 54 H (15-37) U/L C-Reactive Protein (0.0-0.9) mg/dL Total Protein (6.4-8.2) gm/dL Albumin 2.4 L (3.4-5.0) gm/dL Globulin (1.3-3.2) gm/dl Albumin/Globulin Ratio (1.1-1.8) TSH 4.56 H (0.358-3.740) uIU/ml Free T4 Index 2.7 L (5.93-13.13) ug/dL Ur Leukocyte Esterase 3+ A (Negative) 05/24/19 05/24/19 05/24/19 Range/Units 05:34 05:34 10:45 WBC 2.0 L D 3.5 L D (4.8-10.8) K/mm3 RBC 3.21 L 2.99 L (4.60-6.20) M/mm3 Hgb 8.3 L 7.8 L* (14.1-18.0) g/dL Hct 28.0 L 25.8 L (42.0-52.0) % MCH 26.0 L 26.0 L (27.0-31.2) pg MCHC 29.8 L 30.1 L (31.8-35.4) g/dL RDW 19.5 H 19.8 H (11.5-17.5) % Plt Count 47 L* D 64 L D (142-424) K/mm3 Neut % (Auto) 82.2 H (37.0-80.0) % Lymph % (Auto) 8.5 L (10-50) % Neut # (Auto) 1.6 L (1.8-7.8) K/mm3 Lymph # (Auto) 0.3 L 0.3 L (0.7-4.5) K/mm3 Sodium (136-145) mmol/L Anion Gap (5-15) mEq/L BUN 41 H (7-18) mg/dL Creatinine (0.70-1.30) mg/dL Estimated GFR (>60) ml/min Est GFR ( Amer) (>60) ML/MIN Glucose (74-106) mg/dL Lactate (0.4-2.0) mmol/L Calcium 8.2 L (8.5-10.1) mg/dL AST (15-37) U/L C-Reactive Protein (0.0-0.9) mg/dL Total Protein (6.4-8.2) gm/dL Albumin (3.4-5.0) gm/dL Globulin (1.3-3.2) gm/dl Albumin/Globulin Ratio (1.1-1.8) TSH (0.358-3.740) uIU/ml Free T4 Index (5.93-13.13) ug/dL Ur Leukocyte Esterase (Negative) 05/24/19 Range/Units 10:45 WBC (4.8-10.8) K/mm3 RBC (4.60-6.20) M/mm3 Hgb (14.1-18.0) g/dL Hct (42.0-52.0) % MCH (27.0-31.2) pg MCHC (31.8-35.4) g/dL RDW (11.5-17.5) % Plt Count (142-424) K/mm3 Neut % (Auto) (37.0-80.0) % Lymph % (Auto) (10-50) % Neut # (Auto) (1.8-7.8) K/mm3 Lymph # (Auto) (0.7-4.5) K/mm3 Sodium (136-145) mmol/L Anion Gap (5-15) mEq/L BUN 43 H (7-18) mg/dL Creatinine (0.70-1.30) mg/dL Estimated GFR 55 L (>60) ml/min Est GFR ( Amer) (>60) ML/MIN Glucose (74-106) mg/dL Lactate (0.4-2.0) mmol/L Calcium (8.5-10.1) mg/dL AST 58 H (15-37) U/L C-Reactive Protein 4.1 H (0.0-0.9) mg/dL Total Protein 6.1 L (6.4-8.2) gm/dL Albumin 2.1 L D (3.4-5.0) gm/dL Globulin 4.0 H (1.3-3.2) gm/dl Albumin/Globulin Ratio 0.5 L (1.1-1.8) TSH (0.358-3.740) uIU/ml Free T4 Index (5.93-13.13) ug/dL Ur Leukocyte Esterase (Negative) H & H 05/23/19 05/24/19 05/24/19 Range/Units 13:05 05:34 10:45 Hgb 8.7 L 8.3 L 7.8 L* (14.1-18.0) g/dL Hct 28.9 L 28.0 L 25.8 L (42.0-52.0) % All other labs normal. <Tia Brown L - 05/24/19 12:41> Assessment and Plan (1) Sepsis associated hypotension Current visit: Yes Status: Acute Category: Medical Code(s): A41.9 - Sepsis, unspecified organism; I95.9 - Hypotension, unspecified (2) Acute delirium Current visit: No Status: Acute Category: Medical Code(s): R41.0 - Disorientation, unspecified (3) Pancytopenia Current visit: No Status: Acute Category: Medical Code(s): D61.818 - Other pancytopenia (4) WOJCIECH (acute kidney injury) Current visit: No Status: Acute Category: Medical Code(s): N17.9 - Acute kidney failure, unspecified (5) UTI (urinary tract infection) Current visit: No Status: Acute Qualifiers: Urinary tract infection type: site unspecified Hematuria presence: without hematuria Qualified Code(s): N39.0 - Urinary tract infection, site not specified Category: Medical Code(s): N39.0 - Urinary tract infection, site not specified (6) Afib Current visit: No Status: Acute Qualifiers: Atrial fibrillation type: unspecified persistent Qualified Code(s): I48.19 - Other persistent atrial fibrillation; I48.1 - Persistent atrial fibrillation Category: Medical Code(s): I48.91 - Unspecified atrial fibrillation (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) Current visit: No Status: Acute Category: Medical Code(s): I45.2 - Bifasci cular block (8) Altered mental status Current visit: Yes Status: Acute Qualifiers: Altered mental status type: somnolence Qualified Code(s): R40.0 - Somnolence Category: Medical Code(s): R41.82 - Altered mental status, unspecified (9) Aortic stenosis Current visit: No Status: Chronic Qualifiers: Cardiac valve disease etiology: etiology unspecified Qualified Code(s): I35.0 - Nonrheumatic aortic (valve) stenosis Category: Medical Code(s): I35.0 - Nonrheumatic aortic (valve) stenosis (10) Diastolic dysfunction Current visit: No Status: Chronic Category: Medical Code(s): I51.89 - Other ill-defined heart diseases (11) HTN (hypertension) Current visit: No Status: Chronic Qualifiers: Hypertension type: essential hypertension Qualified Code(s): I10 - Essential (primary) hypertension Category: Medical Code(s): I10 - Essential (primary) hypertension (12) PAD (peripheral artery disease) Current visit: No Status: Chronic Category: Medical Code(s): I73.9 - Peripheral vascular disease, unspecified <Tia Brown - 05/24/19 11:27> (1) Sepsis associated hypotension Current visit: Yes Status: Acute Category: Medical Code(s): A41.9 - Sepsis, unspecified organism; I95.9 - Hypotension, unspecified (2) Acute delirium Current visit: No Status: Acute Category: Medical Code(s): R41.0 - Disorientation, unspecified (3) Pancytopenia Current visit: No Status: Acute Category: Medical Code(s): D61.818 - Other pancytopenia (4) WOJCIECH (acute kidney injury) Current visit: No Status: Acute Category: Medical Code(s): N17.9 - Acute kidney failure, unspecified (5) UTI (urinary tract infection) Current visit: No Status: Acute Qualifiers: Urinary tract infection type: site unspecified Hematuria presence: without hematuria Qualified Code(s): N39.0 - Urinary tract infection, site not specified Category: Medical Code(s): N39.0 - Urinary tract infection, site not specified (6) Afib Current visit: No Status: Acute Qualifiers: Atrial fibrillation type: unspecified persistent Qualified Code(s): I48.19 - Other persistent atrial fibrillation; I48.1 - Persistent atrial fibrillation Category: Medical Code(s): I48.91 - Unspecified atrial fibrillation (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) Current visit: No Status: Acute Category: Medical Code(s): I45.2 - Bifascicular block (8) Altered mental status Current visit: Yes Status: Acute Qualifiers: Altered mental status type: somnolence Qualified Code(s): R40.0 - Somnolence Category: Medical Code(s): R41.82 - Altered mental status, unspecified (9) Aortic stenosis Current visit: No Status: Chronic Qualifiers: Cardiac valve disease etiology: etiology unspecified Qualified Code(s): I35.0 - Nonrheumatic aortic (valve) stenosis Category: Medical Code(s): I35.0 - Nonrheumatic aortic (valve) stenosis (10) Diastolic dysfunction Current visit: No Status: Chronic Category: Medical Code(s): I51.89 - Other ill-defined heart diseases (11) HTN (hypertension) Current visit: No Status: Chronic Qualifiers: Hypertension type: essential hypertension Qualified Code(s): I10 - Essential (primary) hypertension Category: Medical Code(s): I10 - Essential (primary) hypertension (12) PAD (peripheral artery disease) Current visit: No Status: Chronic Category: Medical Code(s): I73.9 - Peripheral vascular disease, unspecified (13) Pressure ulcer of left foot, stage 4 Current visit: Yes Status: Acute Category: Medical Code(s): L89.894 - Pressure ulcer of other site, stage 4 (14) Pressure ulcer of right heel, stage 4 Current visit: Yes Status: Acute Category: Medical Code(s): L89.614 - Pressure ulcer of right heel, stage 4 (15) Pressure ulcer of left buttock, stage 2 Current visit: Yes Status: Acute Category: Medical Code(s): L89.322 - Pressure ulcer of left buttock, stage 2 (16) Excoriation of groin Current visit: Yes Status: Acute Category: Medical Code(s): S30.811A - Abrasion of abdominal wall, initial encounter (17) Aortic stenosis, severe Current visit: No Status: Chronic Category: Medical Code(s): I35.0 - Nonrheumatic aortic (valve) stenosis <Rae Mars - 05/25/19 18:34> - Assessment and plan all Dx Assessment and Plan for all problems:: Physician Attestation I was present during all of the critical components of the office visit. The patient was seen, evaluated and examined by me. I have read the office note that was documented by the PINION SORTER and agree with the documentation. Assessment: B/L decubitus heel pressure ulcers, PVD 1. Infection lab panel to be drawn: ESR,CMP,CBC,CRP 2. B/L 3-view foot xrays: negative for bone infection 3. TRACY (Arterial lower extremity study): TRACY R 0.97, L 1.09, TBI R 0.99, L 0.80 4. Off-load b/l LE with pillows 5. Debridements of b/l heels and right hallux toe tip (see progress/procedure note) 6. Betadine dressing changes daily <Rae Mars - 05/25/19 18:34>
[2019-05-24 12:16] LABS: Erythrocyte Sedimentation Rate > 140 mm/hr (0-20)
--- NOTE | 2019-05-24 12:44 | Progress Note ---
Internal Medicine - PN: Abdelrahman *Date: 05/24/19 *Time: 12:41 Interval history: had episode of sepsis with shock last pm - still obtunded and has hypothermia - Exam Vital signs and Labs for Last 24 Hours: Temp Pulse Resp BP Pulse Ox 99.2 F 107 H 18 105/44 L 94 L 05/24/19 12:00 05/24/19 12:00 05/24/19 12:00 05/24/19 12:00 05/24/19 12:00 Laboratory Results - last 24 hr 05/23/19 13:05: WBC 2.8 L, RBC 3.33 L, Hgb 8.7 L, Hct 28.9 L, MCV 86.6, MCH 26.2 L, MCHC 30.3 L, RDW 19.5 H, Plt Count 63 L, MPV 9.7, Neut % (Auto) 75.9, Lymph % (Auto) 14.4, [place] % (Auto) 7.3, Eos % (Auto) 1.8, Baso % (Auto) 0.6, Neut # (Auto) 2.1, Lymph # (Auto) 0.4 L, [place] # (Auto) 0.2, Eos # (Auto) 0.1, Baso # (Auto) 0.0 05/23/19 13:05: Sodium 135 L, Potassium 4.2, Chloride 98, Carbon Dioxide 26, Anion Gap 15.2 H, BUN 48 H, Creatinine 1.46 H, Estimated Creat Clear 46, Estimated GFR 46 L, Est GFR ( Amer) 55 L, Glucose 135 H, Calcium 9.1 05/23/19 14:15: Lactate 2.1 H 05/23/19 14:28: Total Bilirubin 0.5, Direct Bilirubin 0.2, Indirect Bilirubin 0.3, AST 54 H, ALT 30, Alkaline Phosphatase 91, Troponin I 0.05, Total Protein 6.9, Albumin 2.4 L 05/23/19 14:28: TSH 4.56 H, Free T4 Index 2.7 L, Thyroxine (T4) 7.9, T3 Uptake 34 05/23/19 14:45: Urine Color Yellow, Urine Appearance Turbid, Urine pH 8.5, Ur Specific [place] 1.010, Urine Protein Trace, Urine Glucose (UA) Negative, Urine Ketones Negative, Urine Blood 3+, Urine Nitrate Negative, Urine Bilirubin Negative, Urine Urobilinogen 1.0, Ur Leukocyte Esterase 3+ A, Urine RBC Occasional, Urine WBC 5-10, Ur Squamous Epith Cells Occasional, Amorphous Sediment 3+, Urine Bacteria 4+ 05/23/19 18:50: Lactate 1.4 05/24/19 05:34: WBC 2.0 L D, RBC 3.21 L, Hgb 8.3 L, Hct 28.0 L, MCV 87.2, MCH 26.0 L, MCHC 29.8 L, RDW 19.5 H, Plt Count 47 L* D, MPV 10.0, Neut % (Auto) 75.7, Lymph % (Auto) 14.0, [place] % (Auto) 7.9, Eos % (Auto) 1.9, Baso % (Auto) 0.5, Neut # (Auto) 1.6 L, Lymph # (Auto) 0.3 L, [place] # (Auto) 0.2, Eos # (Auto) 0.0, Baso # (Auto) 0.0 05/24/19 05:34: Sodium 139, Potassium 3.8, Chloride 104, Carbon Dioxide 27, Anion Gap 11.8, BUN 41 H, Creatinine 1.12 D, Estimated Creat Clear 61, E stimated GFR 62, Est GFR ( Amer) 75 D, Glucose 91 D, Calcium 8.2 L 05/24/19 10:45: WBC 3.5 L D, RBC 2.99 L, Hgb 7.8 L*, Hct 25.8 L, MCV 86.4, MCH 26.0 L, MCHC 30.1 L, RDW 19.8 H, Plt Count 64 L D, MPV 9.3, Neut % (Auto) 82.2 H , Lymph % (Auto) 8.5 L, [place] % (Auto) 8.6, Eos % (Auto) 0.5, Baso % (Auto) 0.2, Neut # (Auto) 2.9, Lymph # (Auto) 0.3 L, [place] # (Auto) 0.3, Eos # (Auto) 0.0, Baso # (Auto) 0.0, ESR > 140 H 05/24/19 10:45: Sodium 139, Potassium 4.4, Chloride 105, Carbon Dioxide 26, Anion Gap 12.4, BUN 43 H, Creatinine 1.25, Estimated Creat Clear 55, Estimated GFR 55 L, Est GFR ( Amer) 66, Glucose 84, Calcium 7.3 L D, Total Bilirubin 0.6, AST 58 H, ALT 26, Alkaline Phosphatase 67, C-Reactive Protein 4.1 H, Total Protein 6.1 L, Albumin 2.1 L D, Globulin 4.0 H, Albumin/Globulin Ratio 0.5 L I & O for Last 24 hours: Intake & Output 05/22/19 05/23/19 05/24/19 05/25/19 11:59 11:59 11:59 11:59 Intake Total 0 / 0 0 / 0 Output Total 1000 / 1000 Balance -1000 / -1000 0 / 0 Weight 206 lb 205 lb 15.999 oz - Constitutional moderate distress, chronically ill appearing, obtunded - *Routine HEENT Exam Head: Present: normocephalic Eye: Present: EOMI, PERRL ENT: Present: mucous membranes dry - *Routine Neck Exam Absent: JVD - *Routine Respiratory Exam Present: decreased breath sounds - *Routine Cardiovascular Exam Present: RRR, murmur, S4 - *Routine Abdominal Exam Present: soft - *Routine Extremities Exam Present: edema - *Routine Skin Exam Present: intact - *Routine Neurological Exam Present: altered mental status - Routine Psychiatric Exam Present: unable to assess Assessment and Plan (1) Sepsis associated hypotension Current visit: Yes Status: Acute Category: Medical Code(s): A41.9 - Sepsis, unspecified organism; I95.9 - Hypotension, unspecified (2) Acute delirium Current visit: No Status: Acute Category: Medical Code(s): R41.0 - Disorientation, unspecified (3) Pancytopenia Current visit: No Status: Acute Category: Medical Code(s): D61.818 - Other pancytopenia (4) WOJCIECH (acute kidney injury) Current visit: No Status: Acute Category: Medical Code(s): N17.9 - Acute kidney failure, unspecified (5) UTI (urinary tract infection) Current visit: No Status: Acute Qualifiers: Qualified Code(s): N39.0 - Urinary tract infection, site not specified Category: Medical Code(s): N39.0 - Urinary tract infection, site not specified (6) Afib Current visit: No Status: Acute Qualifiers: Qualified Code(s): I48.19 - Other persistent atrial fibrillation; I48.1 - Persistent atrial fibrillation Category: Medical Code(s): I48.91 - Unspecified atrial fibrillation (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) Current visit: No Status: Acute Category: Medical Code(s): I45.2 - Bifascicular block (8) Altered mental status Current visit: Yes Status: Acute Qualifiers: Qualified Code(s): R40.0 - Somnolence Category: Medical Code(s): R41.82 - Altered mental status, unspecified (9) Aortic stenosis Current visit: No Status: Chronic Qualifiers: Qualified Code(s): I35.0 - Nonrheumatic aortic (valve) stenosis Category: Medical Code(s): I35.0 - Nonrheumatic aortic (valve) stenosis (10) Diastolic dysfunction Current visit: No Status: Chronic Category: Medical Code(s): I51.89 - Other ill-defined heart diseases (11) HTN (hypertension) Current visit: No Status: Chronic Qualifiers: Qualified Code(s): I10 - Essential (primary) hypertension Category: Medical Code(s): I10 - Essential (primary) hypertension (12) PAD (peripheral artery disease) Current visit: No Status: Chronic Category: Medical Code(s): I73.9 - Peripheral vascular disease, unspecified
--- NOTE | 2019-05-24 16:45 | Progress Note ---
Subjective Date: 05/24/19 <Tia Brown - 05/24/19 16:47> Time: 15:00 <Tia Brown - 05/24/19 16:47> Interval history: Return to patient's bedside later in the day for procedural debridement as above. <Rae Mars - 05/25/19 18:47> Patient resting in bed, still not responding to verbal stimuli. Dressing change was performed on the patients right and left foot. The Left great toe blood blister was debrided with a #15 blade and then dressed with betadine soaked gauze, covered with dry 4x4 gauze and soft roll gauze. The Left heel ulcer as well as the Right heel ulcer was debrided with a #15 blade, good blood flow was noted from the debridement, red beefy wound bed exposed, then dressed with betadine soaked gauze, covered with dry 4x4 gauze and soft roll gauze. The Patient tolerated the procedure well. The heels were then elevated and extended off of 2 pillows to offload the pressure. Plan: Patient will have dressing change again in the am by Podiatry. <Tia Brown - 05/24/19 16:47> PN: Obj Ex Vital signs: Temp Pulse Resp BP Pulse Ox 97.9 F 79 12 121/63 99 05/25/19 16:00 05/25/19 18:00 05/25/19 18:00 05/25/19 18:00 05/25/19 18:00 <Rae Mars - 05/25/19 18:44> Temp Pulse Resp BP Pulse Ox 98.5 F 99 H 14 101/51 L 99 05/24/19 16:25 05/24/19 16:25 05/24/19 16:25 05/24/19 16:25 05/24/19 16:25 <Tia Brown - 05/24/19 16:47> - Constitutional chronically ill appearing <Rae Mars - 05/25/19 18:44> - Routine Neck Exam Absent: JVD <MadisynRae - 05/25/19 18:44> - Routine Respiratory Exam Absent: respiratory distress <MadisynRae - 05/25/19 18:44> - Routine Abdominal Exam Absent: guarding <Rae Mars - 05/25/19 18:44> - Routine Extremities Exam Present: edema, joint swelling. Absent: pulses intact <Rae Mars - 05/25/19 18:44> - Detailed Lower Extremity Exam Comments: Unchanged PE from 05/24/19: Comments: B/L feet and lower extremities has very dry and cracked skin, the right great tip of toe has an black spot measuring (2.0x0.3) no drainage noted, right 2nd MPJ is red and swollen, Toe nails are yellow, thick and dystrophic. Right heel has a pressure ulcer has indistinct edges, yellow and brown eschar noted to the wound bed, ulcer measuring (2.3x2.0x0.2) small amount of brown drainage was noted to the dressing. Erythema and non-pitting edema noted to the skin surrounding the ulcer. The Left heel has a pressure ulcer with indistinct edges, beefy red wound bed covered with yellow ecshar measuring (6.2x2.2x0.3) small amount of drainage noted to the dressing or site, erythema and non-pitting edema noted to the skin surrounding the ulcer. 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) Status: Acute Current Visit: No (8) Altered mental status Status: Acute Current Visit: Yes (9) Aortic stenosis Status: Chronic Current Visit: No (10) Diastolic dysfunction Status: Chronic Current Visit: No (11) HTN (hypertension) Status: Chronic Current Visit: No (12) PAD (peripheral artery disease) Status: Chronic Current Visit: No <Tia Brown - 05/24/19 16:36> (1) Sepsis associated hypotension Status: Acute Current Visit: Yes (2) Acute delirium Status: Acute Current Visit: No (3) Pancytopenia Status: Acute Current Visit: No (4) WOJCIECH (acute kidney injury) Status: Acute Current Visit: No (5) UTI (urinary tract infection) Status: Acute Current Visit: No (6) Afib Status: Acute Current Visit: No (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) Status: Acute Current Visit: No (8) Altered mental status Status: Acute Current Visit: Yes (9) Aortic stenosis Status: Chronic Current Visit: No (10) Diastolic dysfunction Status: Chronic Current Visit: No (11) HTN (hypertension) Status: Chronic Current Visit: No (12) PAD (peripheral artery disease) Status: Chronic Current Visit: No (13) Pressure ulcer of left foot, stage 4 Status: Acute Current Visit: Yes (14) Pressure ulcer of right heel, stage 4 Status: Acute Current Visit: Yes (15) Pressure ulcer of left buttock, stage 2 Status: Acute Current Visit: Yes (16) Excoriation of groin Status: Acute Current Visit: Yes (17) Aortic stenosis, severe Status: Chronic Current Visit: No <MadisynRae - 05/25/19 18:54> Assessment and Plan for All Diagnoses:: Assessment: B/L decubitus heel pressure ulcers, right hallux blood blister, 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 Bilateral heels and right great toe were sharply debrided with a 15 blade. Utilizing a 15 blade, the wound was sharply excisionally debrided through skin into sub q layer. Biofilm and fibrotic slough were debrided. The heels wounds did probe thru deep fascia but not into the bone. There was no drainage and no purulence noted. Yue-wound cellulitis noted. Non-palpable popliteal lymph nodes. Post-debridement the wound base was: 1. Left heel: 75% granular, 25% fibrotic. The wound measured 2.4 x 2.1 x 0.2cm. Erythema, non-pitting edema noted to skin around the ulcer. 2. Right heel: 50% granular, 50% fibrotic. The wound measured 6.3 x 2.2 x 0.3cm. Mild erythema and non-pitting edema noted around the ulcer. 3. Right great toe: blood blister, 100% granular and measured 2.0 x 0.3 x 0.1cm. 1. Infection lab panel to be drawn: ESR,CMP,CBC,CRP 2. B/L 3-view foot xrays: negative for bone infection 3. TRACY (Arterial lower extremity study): TRACY R 0.97, L 1.09, TBI R 0.99, L 0.80 4. Off-load b/l LE with pillows 5. Debridements of b/l heels and right hallux toe tip (see progress/procedure note) 6. Betadine dressing changes daily <Rae Mars - 05/25/19 18:54>
[2019-05-24 21:23] LABS: Hematocrit 31.4 % (42.0-52.0)
[2019-05-24 21:33] LABS: Hemoglobin 9.5 g/dL (14.1-18.0)
--- NOTE | 2019-05-25 08:48 | Progress Note ---
Subjective Date: 05/25/19 Time: 08:43 Principal diagnosis: sepsis Interval history: This is an 88 year old white male with UTI and sepsis. Pt is a resident at [facility] / [facility]. Today the patient is opening his eyes to verbal stimuli. he is unable to answer any questions appropriately or follow any commands. He does not appear to be in any distress this morning. VSS on dopamine gtt at 5 mcg. Temp has improved to 98 degrees F. Unable to complete a ROS as patient is unable to answer any questions. Exam Vital signs and Labs for Last 24 Hours: Temp Pulse Resp BP Pulse Ox 98.0 F 68 16 95/50 L 99 05/25/19 08:00 05/25/19 08:00 05/25/19 08:00 05/25/19 08:00 05/25/19 08:00 Laboratory Results - last 24 hr 05/24/19 10:45: WBC 3.5 L D, RBC 2.99 L, Hgb 7.8 L*, Hct 25.8 L, MCV 86.4, MCH 26.0 L, MCHC 30.1 L, RDW 19.8 H, Plt Count 64 L D, MPV 9.3, Neut % (Auto) 82.2 H , Lymph % (Auto) 8.5 L, [place] % (Auto) 8.6, Eos % (Auto) 0.5, Baso % (Auto) 0.2, Neut # (Auto) 2.9, Lymph # (Auto) 0.3 L, [place] # (Auto) 0.3, Eos # (Auto) 0.0, Baso # (Auto) 0.0, ESR > 140 H 05/24/19 10:45: Sodium 139, Potassium 4.4, Chloride 105, Carbon Dioxide 26, Anion Gap 12.4, BUN 43 H, Creatinine 1.25, Estimated Creat Clear 55, Estimated GFR 55 L, Est GFR ( Amer) 66, Glucose 84, Calcium 7.3 L D, Total Bilirubin 0.6, AST 58 H, ALT 26, Alkaline Phosphatase 67, C-Reactive Protein 4.1 H, Total Protein 6.1 L, Albumin 2.1 L D, Globulin 4.0 H, Albumin/Globulin Ratio 0.5 L 05/24/19 13:13: Blood Type O Positive, Antibody Screen Negative, Crossmatch (AHG) See Detail 05/24/19 14:15: Blood Type Confirm O Positive 05/24/19 21:16: Hgb 9.5 L D, Hct 31.4 L I & O for Last 24 hours: Intake & Output 05/22/19 05/23/19 05/24/19 05/25/19 23:59 23:59 23:59 23:59 Intake Total 1746 / 1746 1114 / 1114 Output Total 2100 / 2100 950 / 950 Balance -354 / -354 164 / 164 Weight 206 lb 205 lb 15.999 oz 210 lb 8 oz Microbiology Reports for the Last 24 Hours: Microbiology 05/23/19 14:45 Urine,Catheterized Urine Culture - Preliminary 05/24/19 10:05 Foot,Left - Wound Gram Stain - Final 05/24/19 10:05 Foot,Left - Wound Wound Culture - Preliminary 05/24/19 10:05 Foot,Right - Wound Gram Stain - Final 05/24/19 10:05 Foot,Right - Wound Wound Culture - Preliminary 05/24/19 03:00 Buttock - Wound Gram Stain - Final 05/24/19 03:00 Buttock - Wound Wound Culture - Preliminary Narrative: tele is afib with a rate of 68. - Constitutional no acute distress, chronically ill appearing - *Routine HEENT Exam Head: Present: normocephalic, atraumatic Eye: Present: EOMI, PERRL ENT: Present: mucous membranes moist - *Routine Neck Exam Present: supple, normal carotid upstroke. Absent: JVD, carotid bruit, lymphadenopathy - *Routine Respiratory Exam Present: CTA bilaterally - *Routine Cardiovascular Exam Present: Normal S1, Normal S2, murmur, irregularly irregular - *Routine Abdominal Exam Present: soft, normoactive bowel sounds. Absent: tenderness, distended - *Routine Extremities Exam Present: pulses intact, normal capillary refill. Absent: cyanosis, clubbing, edema - *Routine Skin Exam Present: erythema, dry, warm, wounds (multiple wounds noted, bilateral heels, buttock, and penis ). 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 The patient was admitted to the hospital from [facility] for mental status changes. The patient has UTI and sepsis. on antibiotics. 2. Pt on dopamine for hypotension related to sepsis. His BP is stable this morning, weaning Dopamine. He is down to 5 mcg. continue attempting to wean Dopamine. 3. pt is no longer hypothermic. temp up to 98 degrees F. 4. The patient does have chronic atrial fibrillation which is currently rate controlled. His heart rate is usually in the 40s and 50s. The patient has historically refused pacemaker placement. His HR is stable in the 60-70s today. 5. The patient does have a history of severe aortic stenosis and mild mitral regurgitation. At this time given his age and sepsis as well as his declining health, we will proceed with conservative and palliative care from a cardiac st andpoint. The patient is most likely at the end of life so we will continue with conservative medical management and palliative care at this time. 6. The patient does have a history of coronary artery disease. this is likely stable. no invasive testing. 7. His LDL goal is less than 55. 8. The patient does have multiple wounds all over his body. He has wounds to his heels, his buttocks, and penis. The patient came up from the snf with these wounds. wound management addressing this. 9. Further recommendations will be made pending the patient's response to treatment. Continue conservative/palliative care from a cardiac standpoint. Thank you for the opportunity to help participate in the care of this patient.
--- NOTE | 2019-05-25 09:16 | Progress Note ---
Internal Medicine - PN: Subj *Date: 05/25/19 *Time: 09:11 Interval history: Patient response but slow Exam Vital signs and Labs for Last 24 Hours: Temp Pulse Resp BP Pulse Ox 98.0 F 68 16 95/50 L 99 05/25/19 08:00 05/25/19 08:00 05/25/19 08:00 05/25/19 08:00 05/25/19 08:00 Laboratory Results - last 24 hr 05/24/19 10:45: WBC 3.5 L D, RBC 2.99 L, Hgb 7.8 L*, Hct 25.8 L, MCV 86.4, MCH 26.0 L, MCHC 30.1 L, RDW 19.8 H, Plt Count 64 L D, MPV 9.3, Neut % (Auto) 82.2 H , Lymph % (Auto) 8.5 L, [place] % (Auto) 8.6, Eos % (Auto) 0.5, Baso % (Auto) 0.2, Neut # (Auto) 2.9, Lymph # (Auto) 0.3 L, [place] # (Auto) 0.3, Eos # (Auto) 0.0, Baso # (Auto) 0.0, ESR > 140 H 05/24/19 10:45: Sodium 139, Potassium 4.4, Chloride 105, Carbon Dioxide 26, Anion Gap 12.4, BUN 43 H, Creatinine 1.25, Estimated Creat Clear 55, Estimated GFR 55 L, Est GFR ( Amer) 66, Glucose 84, Calcium 7.3 L D, Total Bilirubin 0.6, AST 58 H, ALT 26, Alkaline Phosphatase 67, C-Reactive Protein 4.1 H, Total Protein 6.1 L, Albumin 2.1 L D, Globulin 4.0 H, Albumin/Globulin Ratio 0.5 L 05/24/19 13:13: Blood Type O Positive, Antibody Screen Negative, Crossmatch (AHG) See Detail 05/24/19 14:15: Blood Type Confirm O Positive 05/24/19 21:16: Hgb 9.5 L D, Hct 31.4 L I & O for Last 24 hours: Intake & Output 05/22/19 05/23/19 05/24/19 05/25/19 11:59 11:59 11:59 11:59 Intake Total 0 / 0 2860 / 2860 Output Total 1000 / 1000 2049 / 2049 Balance -1000 / -1000 810 / 810 Weight 206 lb 210 lb 8 oz Microbiology Reports for the Last 24 Hours: Microbiology 05/23/19 14:45 Urine,Catheterized Urine Culture - Preliminary 05/24/19 10:05 Foot,Left - Wound Gram Stain - Final 05/24/19 10:05 Foot,Left - Wound Wound Culture - Preliminary 05/24/19 10:05 Foot,Right - Wound Gram Stain - Final 05/24/19 10:05 Foot,Right - Wound Wound Culture - Preliminary 05/24/19 03:00 Buttock - Wound Gram Stain - Final 05/24/19 03:00 Buttock - Wound Wound Culture - Preliminary - Constitutional mild distress, thin - *Routine HEENT Exam Head: Present: normocephalic Eye: Present: PERRL ENT: Present: mucous membranes moist - *Routine Neck Exam Present: supple. Absent: lymphadenopathy - *Routine Respiratory Exam Present: rhonchi, wheezes - *Routine Cardiovascular Exam Present: RRR, murmur - *Routine Abdominal Exam Present: soft, normoactive bowel sounds. Absent: tenderness - *Routine Extremities Exam Present: edema, full ROM. Absent: cyanosis, clubbing - *Routine Skin Exam Present: warm. Absent: rash Comments: Dressings to bilateral lower extremities- stage 4 on jignesh heels Groin is red and excoriated - *Routine Neurological Exam Present: alert - Routine Psychiatric Exam Present: unable to assess Assessment and Plan (1) Sepsis associated hypotension Current visit: Yes Status: Acute Category: Medical Code(s): A41.9 - Sepsis, unspecified organism; I95.9 - Hypotension, unspecified (2) Acute delirium Current visit: No Status: Acute Category: Medical Code(s): R41.0 - Disorientation, unspecified (3) Pancytopenia Current visit: No Status: Acute Category: Medical Code(s): D61.818 - Other pancytopenia (4) WOJCIECH (acute kidney injury) Current visit: No Status: Acute Category: Medical Code(s): N17.9 - Acute kidney failure, unspecified (5) UTI (urinary tract infection) Current visit: No Status: Acute Qualifiers: Urinary tract infection type: site unspecified Hematuria presence: without hematuria Qualified Code(s): N39.0 - Urinary tract infection, site not specified Category: Medical Code(s): N39.0 - Urinary tract infection, site not specified (6) Afib Current visit: No Status: Acute Qualifiers: Atrial fibrillation type: unspecified persistent Qualified Code(s): I48.19 - Other persistent atrial fibrillation; I48.1 - Persistent atrial fibrillation Category: Medical Code(s): I48.91 - Unspecified atrial fibrillation (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) Current visit: No Status: Acute Category: Medical Code(s): I45.2 - Bifascicular block (8) Altered mental status Current visit: Yes Status: Acute Qualifiers: Altered mental status type: somnolence Qualified Code(s): R40.0 - Somnolence Category: Medical Code(s): R41.82 - Altered mental status, unspecified (9) Aortic stenosis Current visit: No Status: Chronic Qualifiers: Cardiac valve disease etiology: etiology unspecified Qualified Code(s): I35.0 - Nonrheumatic aortic (valve) stenosis Category: Medical Code(s): I35.0 - Nonrheumatic aortic (valve) stenosis (10) Diastolic dysfunction Current visit: No Status: Chronic Category: Medical Code(s): I51.89 - Other ill-defined heart diseases (11) HTN (hypertension) Current visit: No Status: Chronic Qualifiers: Hypertension type: essential hypertension Qualified Code(s): I10 - Essential (primary) hypertension Category: Medical Code(s): I10 - Essential (primary) hypertension (12) PAD (peripheral artery disease) Current visit: No Status: Chronic Category: Medical Code(s): I73.9 - Peripheral vascular disease, unspecified (13) Pressure ulcer of left foot, stage 4 Current visit: Yes Status: Acute Category: Medical Code(s): L89.894 - Pressure ulcer of other site, stage 4 (14) Pressure ulcer of right heel, stage 4 Current visit: Yes Status: Acute Category: Medical Code(s): L89.614 - Pressure ulcer of right heel, stage 4 (15) Pressure ulcer of left buttock, stage 2 Current visit: Yes Status: Acute Category: Medical Code(s): L89.322 - Pres sure ulcer of left buttock, stage 2 (16) Excoriation of groin Current visit: Yes Status: Acute Category: Medical Code(s): S30.811A - Abrasion of abdominal wall, initial encounter (17) Aortic stenosis, severe Current visit: No Status: Chronic Category: Medical Code(s): I35.0 - Nonrheumatic aortic (valve) stenosis - Assessment and plan all Dx Assessment and Plan for all problems:: Rounded with Dr. Myers all orders per Lucia wait culture results
--- NOTE | 2019-05-25 19:13 | Progress Note ---
Subjective Date: 05/25/19 <Tia Brown - 05/25/19 19:19> Time: 07:45 <Tia Brown - 05/25/19 19:19> Principal diagnosis: sepsis <Tia Brown - 05/25/19 19:19> PN: Obj Ex Vital signs: Temp Pulse Resp BP Pulse Ox 97.9 F 79 12 121/63 99 05/25/19 16:00 05/25/19 18:00 05/25/19 18:00 05/25/19 18:00 05/25/19 18:00 <Rae Mars - 05/25/19 19:50> Temp Pulse Resp BP Pulse Ox 97.9 F 79 12 121/63 99 05/25/19 16:00 05/25/19 18:00 05/25/19 18:00 05/25/19 18:00 05/25/19 18:00 <Tia Brown - 05/25/19 19:19> - Constitutional chronically ill appearing <Tia Brown - 05/25/19 19:19> - Routine HEENT Exam Head: Present: normocephalic <Tia Brown - 05/25/19 19:19> - Routine Respiratory Exam Absent: accessory muscle use, respiratory distress <Tia Brown - 05/25/19 19:19> - Routine Abdominal Exam Absent: guarding <Tia Brown - 05/25/19 19:19> - Routine Extremities Exam Present: edema, pulses intact, normal capillary refill, amputation <Tia Brown - 05/25/19 19:19> Comments: Unchanged PE from 05/24/19: Comments: B/L feet and lower extremities has very dry and cracked skin. 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 See detailed wound measurements in A/P section. <MadisynRae - 05/25/19 18:44> <Tia Brown - 05/25/19 19:47> - Routine Skin Exam Present: dry, warm <Tia Brown - 05/25/19 19:19> - Routine Neurological Exam Absent: alert, oriented X3 <Tia Brown - 05/25/19 19:19> - Routine Psychiatric Exam Present: unable to assess <Tia Brown - 05/25/19 19:19> - Urinary Catheter Management Choi Cath placed during this visit: no <Rae Mars - 05/25/19 19:50> no <Tia Brown - 05/25/19 19:47> Progress Note: A&P (1) Sepsis associated hypotension Status: Acute Current Visit: Yes (2) Acute delirium Status: Acute Current Visit: No (3) Pancytopenia Status: Acute Current Visit: No (4) WOJCIECH (acute kidney injury) Status: Acute Current Visit: No (5) UTI (urinary tract infection) Status: Acute Current Visit: No (6) Afib Status: Acute Current Visit: No (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) Status: Acute Current Visit: No (8) Altered mental status Status: Acute Current Visit: Yes (9) Aortic stenosis Status: Chronic Current Visit: No (10) Diastolic dysfunction Status: Chronic Current Visit: No (11) HTN (hypertension) Status: Chronic Current Visit: No (12) PAD (peripheral artery disease) Status: Chronic Current Visit: No (13) Pressure ulcer of left foot, stage 4 Status: Acute Current Visit: Yes (14) Pressure ulcer of right heel, stage 4 Status: Acute Current Visit: Yes (15) Pressure ulcer of left buttock, stage 2 Status: Acute Current Visit: Yes (16) Excoriation of groin Status: Acute Current Visit: Yes (17) Aortic stenosis, severe Status: Chronic Current Visit: No <Tia Brown - 05/25/19 19:44> (1) Sepsis associated hypotension Status: Acute Current Visit: Yes (2) Acute delirium Status: Acute Current Visit: No (3) Pancytopenia Status: Acute Current Visit: No (4) WOJCIECH (acute kidney injury) Status: Acute Current Visit: No (5) UTI (urinary tract infection) Status: Acute Current Visit: No (6) Afib Status: Acute Current Visit: No (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) Status: Acute Current Visit: No (8) Altered mental status Status: Acute Current Visit: Yes (9) Aortic stenosis Status: Chronic Current Visit: No (10) Diastolic dysfunction Status: Chronic Current Visit: No (11) HTN (hypertension) Status: Chronic Current Visit: No (12) PAD (peripheral artery disease) Status: Chronic Current Visit: No (13) Pressure ulcer of left foot, stage 4 Status: Acute Current Visit: Yes (14) Pressure ulcer of right heel, stage 4 Status: Acute Current Visit: Yes (15) Pressure ulcer of left buttock, stage 2 Status: Acute Current Visit: Yes (16) Excoriation of groin Status: Acute Current Visit: Yes (17) Aortic stenosis, severe Status: Chronic Current Visit: No <Rae Mars - 05/25/19 19:50> Assessment and Plan for All Diagnoses:: Physician Attestation I was present during all of the critical components of the office visit. The patient was seen, evaluated and examined by me. I have read the office note that was documented by the staff and/or FIRE ENGINE OPERATOR and agree with the documentation. 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 There was no drainage and no purulence noted. Yue-wound cellulitis noted. Non-palpable popliteal lymph nodes. Post-debridement the wound base was: unchanged from 05/24/19. 1. Left heel: 75% granular, 25% fibrotic. The wound measured 2.4 x 2.1 x 0.2cm. Erythema, non-pitting edema noted to skin around the ulcer. 2. Right heel: 50% granular, 50% fibrotic. The wound measured 6.3 x 2.2 x 0.3cm. Mild erythema and non-pitting edema noted around the ulcer. 3. Right great toe: blood blister, 100% granular and measured 2.0 x 0.3 x 0.1cm. 1. Infection lab panel was obtained: ESR,CMP,CBC,CRP 2. B/L 3-view foot xrays: negative for bone infection 3. TRACY (Arterial lower extremity study): TRACY R 0.97, L 1.09, TBI R 0.99, L 0.80 4. Off-load b/l LE with pillows 5. Betadine dressing changes daily Daily dressing changes per nursing as follows: B/l heels: Betadine soaked 4x4's, dry 4x4's cover with soft roll. Right great toe blister: Bandaid and triple anitbiotic ointment. <Tia Brown - 05/25/19 19:47>
--- NOTE | 2019-05-26 07:33 | Progress Note ---
Subjective Date: 05/26/19 Time: 07:30 Principal diagnosis: sepsis Interval history: 88 yo WM in bed. Awakens to verbal but only moans. No significant response. Tele still shows A. fib with CVR Vitals stable. Exam Vital signs and Labs for Last 24 Hours: Temp Pulse Resp BP Pulse Ox 98.5 F 77 12 102/67 L 100 05/26/19 04:00 05/26/19 06:00 05/26/19 06:00 05/26/19 06:00 05/26/19 06:00 I & O for Last 24 hours: Intake & Output 05/23/19 05/24/19 05/25/19 05/26/19 11:59 11:59 11:59 11:59 Intake Total 0 / 0 2860 / 2860 2277 / 2277 Output Total 1000 / 1000 2550 / 2550 1200 / 1200 Balance -1000 / -1000 310 / 310 1077 / 1077 Weight 206 lb 210 lb 8 oz 209 lb 12.8 oz Microbiology Reports for the Last 24 Hours: Microbiology 05/23/19 14:15 Blood Blood Culture - Preliminary NO GROWTH AFTER 48 HOURS 05/23/19 14:28 Blood Blood Culture - Preliminary NO GROWTH AFTER 48 HOURS 05/23/19 14:45 Urine,Catheterized Urine Culture - Preliminary 05/24/19 10:05 Foot,Left - Wound Gram Stain - Final 05/24/19 10:05 Foot,Left - Wound Wound Culture - Preliminary 05/24/19 10:05 Foot,Right - Wound Gram Stain - Final 05/24/19 10:05 Foot,Right - Wound Wound Culture - Preliminary 05/24/19 03:00 Buttock - Wound Gram Stain - Final 05/24/19 03:00 Buttock - Wound Wound Culture - Preliminary - *Routine Respiratory Exam Present: decreased breath sounds, CTA bilaterally. Absent: accessory muscle use, rales, rhonchi, wheezes - *Routine Cardiovascular Exam Present: irregularly irregular. 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) Status: Acute Current Visit: No (8) Altered mental status Status: Acute Current Visit: Yes (9) Aortic stenosis Status: Chronic Current Visit: No (10) Diastolic dysfunction Status: Chronic Current Visit: No (11) HTN (hypertension) Status: Chronic Current Visit: No (12) PAD (peripheral artery disease) Status: Chronic Current Visit: No (13) Pressure ulcer of left foot, stage 4 Status: Acute Current Visit: Yes (14) Pressure ulcer of right heel, stage 4 Status: Acute Current Visit: Yes (15) Pressure ulcer of left buttock, stage 2 Status: Acute Current Visit: Yes (16) Excoriation of groin Status: Acute Current Visit: Yes (17) Aortic stenosis, severe Status: Chronic Current Visit: No Assessment and Plan for All Diagnoses:: 1. A. fib with CVR. No anticoagulation due to pancytopenia. 2. CAD, stable with no plans for further intervention. 3. History of aortic stenosis 4. Sepsis, per primary physician 5. Poor prognosis. 6. Nothing further to add. See as needed.
--- NOTE | 2019-05-26 09:01 | Progress Note ---
Internal Medicine - PN: Subj *Date: 05/26/19 *Time: 08:58 Interval history: Patient sitting up in bed more alert and oriented today. Answers questions appropriately Exam Vital signs and Labs for Last 24 Hours: Temp Pulse Resp BP Pulse Ox 98.0 F 83 14 109/68 L 100 05/26/19 08:00 05/26/19 08:11 05/26/19 08:00 05/26/19 08:00 05/26/19 08:11 I & O for Last 24 hours: Intake & Output 05/23/19 05/24/19 05/25/19 05/26/19 11:59 11:59 11:59 11:59 Intake Total 0 / 0 2860 / 2860 2757 / 2757 Output Total 1000 / 1000 2550 / 2550 1200 / 1200 Balance -1000 / -1000 310 / 310 1557 / 1557 Weight 206 lb 210 lb 8 oz 209 lb 12.8 oz Microbiology Reports for the Last 24 Hours: Microbiology 05/23/19 14:15 Blood Blood Culture - Preliminary NO GROWTH AFTER 48 HOURS 05/23/19 14:28 Blood Blood Culture - Preliminary NO GROWTH AFTER 48 HOURS 05/23/19 14:45 Urine,Catheterized Urine Culture - Preliminary 05/24/19 10:05 Foot,Left - Wound Gram Stain - Final 05/24/19 10:05 Foot,Left - Wound Wound Culture - Preliminary 05/24/19 10:05 Foot,Right - Wound Gram Stain - Final 05/24/19 10:05 Foot,Right - Wound Wound Culture - Preliminary 05/24/19 03:00 Buttock - Wound Gram Stain - Final 05/24/19 03:00 Buttock - Wound Wound Culture - Preliminary - Constitutional mild distress - *Routine HEENT Exam Head: Present: normocephalic Eye: Present: PERRL ENT: Present: mucous membranes moist - *Routine Neck Exam Present: supple. Absent: lymphadenopathy - *Routine Respiratory Exam Present: CTA bilaterally - *Routine Cardiovascular Exam Present: RRR, murmur - *Routine Abdominal Exam Present: soft, normoactive bowel sounds - *Routine Extremities Exam Present: full ROM, pulses intact, normal capillary refill. Absent: cyanosis, clubbing, edema - *Routine Skin Exam Present: warm. Absent: rash Comments: Dressings to bilateral heels-stage IV to bilateral heels Stage II to buttocks Yue-area is excoriated - *Routine Neurological Exam Present: alert, oriented X3 - Routine Psychiatric Exam Present: normal affect Assessment and Plan (1) Sepsis associated hypotension Current visit: Yes Status: Acute Category: Medical Code(s): A41.9 - Sepsis, unspecified organism; I95.9 - Hypotension, unspecified (2) Acute delirium Current visit: No Status: Acute Category: Medical Code(s): R41.0 - Disorientation, unspecified (3) Pancytopenia Current visit: No Status: Acute Category: Medical Code(s): D61.818 - Other pancytopenia (4) WOJCIECH (acute kidney injury) Current visit: No Status: Acute Category: Medical Code(s): N17.9 - Acute kidney failure, unspecified (5) UTI (urinary tract infection) Current visit: No Status: Acute Qualifiers: Urinary tract infection type: site unspecified Hematuria presence: without hematuria Qualified Code(s): N39.0 - Urinary tract infection, site not specified Category: Medical Code(s): N39.0 - Urinary tract infection, site not specified (6) Afib Current visit: No Status: Acute Qualifiers: Atrial fibrillation type: unspecified persistent Qualified Code(s): I48.19 - Other persistent atrial fibrillation; I48.1 - Persistent atrial fibrillation Category: Medical Code(s): I48.91 - Unspecified atrial fibrillation (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) Current visit: No Status: Acute Category: Medical Code(s): I45.2 - Bifascicular block (8) Altered mental status Current visit: Yes Status: Acute Qualifiers: Altered mental status type: somnolence Qualified Code(s): R40.0 - Somnolence Category: Medical Code(s): R41.82 - Altered mental status, unspecified (9) Aortic stenosis Current visit: No Status: Chronic Qualifiers: Cardiac valve disease etiology: etiology unspecified Qualified Code(s): I35.0 - Nonrheumatic aortic (valve) stenosis Category: Medical Code(s): I35.0 - Nonrheumatic aortic (valve) stenosis (10) Diastolic dysfunction Current visit: No Status: Chronic Category: Medical Code(s): I51.89 - Other ill-defined heart diseases (11) HTN (hypertension) Current visit: No Status: Chronic Qualifiers: Hypertension type: essential hypertension Qualified Code(s): I10 - Essential (primary) hypertension Category: Medical Code(s): I10 - Essential (primary) hypertension (12) PAD (peripheral artery disease) Current visit: No Status: Chronic Category: Medical Code(s): I73.9 - Peripheral vascular disease, unspecified (13) Pressure ulcer of left foot, stage 4 Current visit: Yes Status: Acute Category: Medical Code(s): L89.894 - Pressure ulcer of other site, stage 4 (14) Pressure ulcer of right heel, stage 4 Current visit: Yes Status: Acute Category: Medical Code(s): L89.614 - Pressure ulcer of right heel, stage 4 (15) Pressure ulcer of left buttock, stage 2 Current visit: Yes Status: Acute Category: Medical Code(s): L89.322 - P ressure ulcer of left buttock, stage 2 (16) Excoriation of groin Current visit: Yes Status: Acute Category: Medical Code(s): S30.811A - Abrasion of abdominal wall, initial encounter (17) Aortic stenosis, severe Current visit: No Status: Chronic Category: Medical Code(s): I35.0 - Nonrheumatic aortic (valve) stenosis - Assessment and plan all Dx Assessment and Plan for all problems:: Rounded with Dr. Myers all orders per Lucia Repeat blood cultures Moved from stepdown to MedSurg Repeat labs before giving potassium
[2019-05-26 11:00] LABS: Basophils % 0.3 % (0.1-2.0); Eosinophils % 0.5 % (0.1-12.0); Hematocrit 26.8 % (42.0-52.0); Hemoglobin 8.1 g/dL (14.1-18.0); Lymphocytes # 0.6 K/mm3 (0.7-4.5); Lymphocytes % 10.1 % (10-50); Mean Corpuscular HGB Conc 30.2 g/dL (31.8-35.4); Mean Corpuscular Volume 91.6 fl (80-94); Mean Platelet Volume 10.9 fl (7.4-10.4); Monocytes # 0.3 K/mm3 (0.1-1.0); Monocytes % 5.8 % (1.7-9.3); Neutrophils # 4.5 K/mm3 (1.8-7.8); Neutrophils % 83.3 % (37.0-80.0); Red Blood Count 2.93 M/mm3 (4.60-6.20); Red Cell Distribution Width 19.2 % (11.5-17.5); White Blood Count 5.4 K/mm3 (4.8-10.8)
[2019-05-26 11:02] LABS: Platelet Count 44 K/mm3 (142-424)
[2019-05-26 11:06] LABS: Anion Gap 11.6 mEq/L (5-15)
[2019-05-26 11:21] LABS: Calcium 8.2 mg/dL (8.5-10.1)
[2019-05-26 16:06] LABS: Basophils % 0.2 % (0.1-2.0); Eosinophils % 0.7 % (0.1-12.0); Hematocrit 28.6 % (42.0-52.0); Hemoglobin 8.7 g/dL (14.1-18.0); Lymphocytes # 0.8 K/mm3 (0.7-4.5); Lymphocytes % 12.3 % (10-50); Mean Corpuscular HGB Conc 30.6 g/dL (31.8-35.4); Mean Corpuscular Volume 91.4 fl (80-94); Mean Platelet Volume 9.7 fl (7.4-10.4); Monocytes # 0.4 K/mm3 (0.1-1.0); Monocytes % 5.5 % (1.7-9.3); Neutrophils # 5.2 K/mm3 (1.8-7.8); Neutrophils % 81.3 % (37.0-80.0); Red Blood Count 3.13 M/mm3 (4.60-6.20); White Blood Count 6.4 K/mm3 (4.8-10.8)
[2019-05-26 16:10] LABS: Platelet Count 45 K/mm3 (142-424)
[2019-05-27 07:15] LABS: Basophils % 0.3 % (0.1-2.0); Eosinophils # 0.1 K/mm3 (0.0-0.4); Eosinophils % 0.9 % (0.1-12.0); Hematocrit 28.8 % (42.0-52.0); Hemoglobin 8.4 g/dL (14.1-18.0); Lymphocytes # 0.6 K/mm3 (0.7-4.5); Lymphocytes % 11.4 % (10-50); Mean Corpuscular HGB Conc 29.3 g/dL (31.8-35.4); Mean Platelet Volume 10.1 fl (7.4-10.4); Monocytes # 0.4 K/mm3 (0.1-1.0); Monocytes % 7.1 % (1.7-9.3); Neutrophils # 4.2 K/mm3 (1.8-7.8); Neutrophils % 80.2 % (37.0-80.0); Red Cell Distribution Width 20.4 % (11.5-17.5); White Blood Count 5.2 K/mm3 (4.8-10.8)
[2019-05-27 07:19] LABS: Platelet Count 47 K/mm3 (142-424)
[2019-05-27 07:21] LABS: Anion Gap 12.3 mEq/L (5-15); Calcium 8.5 mg/dL (8.5-10.1)
--- NOTE | 2019-05-27 09:08 | Progress Note ---
Internal Medicine - PN: Subj *Date: 05/28/19 *Time: 09:15 Interval history: more alert this am refusing to take po - has c diff Exam Vital signs and Labs for Last 24 Hours: Temp Pulse Resp BP Pulse Ox 97.5 F L 70 18 115/65 94 L 05/27/19 03:51 05/27/19 04:00 05/27/19 03:51 05/27/19 03:51 05/27/19 03:51 Laboratory Results - last 24 hr 05/23/19 14:45: Urine Color Yellow, Urine Appearance Turbid, Urine pH 8.5, Ur Specific [place] 1.010, Urine Protein Trace, Urine Glucose (UA) Negative, Urine Ketones Negative, Urine Blood 3+, Urine Nitrate Negative, Urine Bilirubin Negative, Urine Urobilinogen 1.0, Ur Leukocyte Esterase 3+ A, Urine RBC Occasional, Urine WBC 5-10, Ur Squamous Epith Cells Occasional, Amorphous Sediment 3+, Urine Bacteria 4+ 05/26/19 10:45: WBC 5.4 D, RBC 2.93 L, Hgb 8.1 L, Hct 26.8 L, MCV 91.6, MCH 27.6, MCHC 30.2 L, RDW 19.2 H, Plt Count 44 L* D, MPV 10.9 H, Neut % (Auto) 83.3 H, Lymph % (Auto) 10.1, [place] % (Auto) 5.8, Eos % (Auto) 0.5, Baso % (Auto) 0.3, Neut # (Auto) 4.5, Lymph # (Auto) 0.6 L, [place] # (Auto) 0.3, Eos # (Auto) 0.0, Baso # (Auto) 0.0 05/26/19 10:45: Sodium 144, Potassium 3.6, Chloride 112 H, Carbon Dioxide 24, Anion Gap 11.6, BUN 41 H, Creatinine 1.56 H D, Estimated Creat Clear 45, Estimated GFR 42 L, Est GFR ( Amer) 51 L D, Glucose 158 H, Calcium 8.2 L D 05/26/19 13:42: Stool Occult Blood Positive A 05/26/19 13:42: Stl Aeromonas (PCR) Not detected, Stl C. cayetanensis PCR Not detected, Stool Rotavirus (PCR) Not detected, Stl Adenov F 40/41 PCR Not detected, Stool Astrovirus (PCR) Not detected, Stool Campylobacter PCR Not detected, Stl C.difficile Tox PCR Detected A, Stool Cryptosporidium PCR Not detected, Stl E.coli Shiga Tox PCR Not detected, Stool E coli O157 PCR Not detected, Stl Enterotoxigenic E PCR Not detected, Stool EPEC (PCR) Not detected, Stool EAEC (PCR) Not detected, Stl E. histolytica PCR Not detected, Stool Giardia Lamblia PCR Not detected, Stool Salmonella PCR Not detected, Stool Sapovirus (PCR) Not detected, Stl P. shigelloides PCR Not detected, Stl Shigella/EIEC PCR Not detected, St Y.enterocolitica PCR Not detected, Stool Vibrio (PCR) Not detected, Stl Vibrio cholerae PCR Not detected, Stl Norovirus GI/GII PCR Not detected 05/26/19 16:00: WBC 6.4, RBC 3.13 L, Hgb 8.7 L, Hct 28.6 L, MCV 91.4, MCH 27.9, MCHC 30.6 L, RDW 19.0 H, Plt Count 45 L*, MPV 9.7, Neut % (Auto) 81.3 H, Lymph % (Auto) 12.3, Sterling % (Auto) 5.5, Eos % (Auto) 0.7, Baso % (Auto) 0.2, Neut # (Auto) 5.2, Lymph # (Auto) 0.8, [place] # (Auto) 0.4, Eos # (Auto) 0.0, Baso # (Auto) 0.0 05/27/19 06:18: WBC 5.2, RBC 3.10 L, Hgb 8.4 L, Hct 28.8 L, MCV 93.0, MCH 27.2, MCHC 29.3 L, RDW 20.4 H, Plt Count 47 L*, MPV 10.1, Neut % (Auto) 80.2 H, Lymph % (Auto) 11.4, [place] % (Auto) 7.1, Eos % (Auto) 0.9, Baso % (Auto) 0.3, Neut # (Auto) 4.2, Lymph # (Auto) 0.6 L, [place] # (Auto) 0.4, Eos # (Auto) 0.1, Baso # (Auto) 0.0 05/27/19 06:18: Sodium 148 H, Potassium 3.3 L, Chloride 115 H, Carbon Dioxide 24, Anion Gap 12.3, BUN 35 H, Creatinine 1.37 H, Estimated Creat Clear 51, Estimated GFR 49 L, Est GFR ( Amer) 59, Glucose 94 D, Calcium 8.5 I & O for Last 24 hours: Intake & Output 05/24/19 05/25/19 05/26/19 05/27/19 11:59 11:59 11:59 11:59 Intake Total 0 / 0 2860 / 2860 3009 / 3009 2565 / 2565 Output Total 1000 / 1000 2550 / 2550 1500 / 1500 800 / 800 Balance -1000 / -1000 310 / 310 1509 / 1509 1765 / 1765 Weight 206 lb 210 lb 8 oz 209 lb 12.8 oz 208 lb 8 oz Microbiology Reports for the Last 24 Hours: Microbiology 05/24/19 10:05 Foot,Right - Wound Gram Stain - Final 05/24/19 10:05 Foot,Right - Wound Wound Culture - Preliminary Providencia stuartii 05/24/19 10:05 Foot,Left - Wound Gram Stain - Final 05/24/19 10:05 Foot,Left - Wound Wound Culture - Preliminary Providencia stuartii 05/24/19 03:00 Buttock - Wound Gram Stain - Final 05/24/19 03:00 Buttock - Wound Wound Culture - Final Pseudomonas aeruginosa 05/23/19 14:45 Urine,Catheterized Urine Culture - Final Corynebacterium urealyticum - Constitutional no acute distress - *Routine HEENT Exam Head: Present: normocephalic Eye: Present: EOMI, PERRL ENT: Present: mucous membranes dry - *Routine Neck Exam Present: supple - *Routine Respiratory Exam Present: decreased breath sounds - *Routine Cardiovascular Exam Present: RRR, murmur - *Routine Abdominal Exam Present: soft - *Routine Extremities Exam Present: full ROM - *Routine Skin Exam Present: intact - *Routine Neurological Exam Present: alert, CN II-XII intact - Routine Psychiatric Exam Present: unable to assess Assessment and Plan (1) Sepsis associated hypotension Current visit: Yes Status: Acute Category: Medical Code(s): A41.9 - Sepsis, unspecified organism; I95.9 - Hypotension, unspecified (2) Acute delirium Current visit: No Status: Acute Category: Medical Code(s): R41.0 - Disorientation, unspecified (3) Pancytopenia Current visit: No Status: Acute Category: Medical Code(s): D61.818 - Other pancytopenia (4) WOJCIECH (acute kidney injury) Current visit: No Status: Acute Category: Medical Code(s): N17.9 - Acute kidney failure, unspecified (5) UTI (urinary tract infection) Current visit: No Status: Acute Qualifiers: Urinary tract infection type: site unspecified Hematuria presence: without hematuria Qualified Code(s): N39.0 - Urinary tract infection, site not speci fied Category: Medical Code(s): N39.0 - Urinary tract infection, site not specified (6) Afib Current visit: No Status: Acute Qualifiers: Atrial fibrillation type: unspecified persistent Qualified Code(s): I48.19 - Other persistent atrial fibrillation; I48.1 - Persistent atrial fibrillation Category: Medical Code(s): I48.91 - Unspecified atrial fibrillation (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) Current visit: No Status: Acute Category: Medical Code(s): I45.2 - Bifascicular block (8) Altered mental status Current visit: Yes Status: Acute Qualifiers: Altered mental status type: somnolence Qualified Code(s): R40.0 - Somnolence Category: Medical Code(s): R41.82 - Altered mental status, unspecified (9) Aortic stenosis Current visit: No Status: Chronic Qualifiers: Cardiac valve disease etiology: etiology unspecified Qualified Code(s): I35.0 - Nonrheumatic aortic (valve) stenosis Category: Medical Code(s): I35.0 - Nonrheumatic aortic (valve) stenosis (10) Diastolic dysfunction Current visit: No Status: Chronic Category: Medical Code(s): I51.89 - Other ill-defined heart diseases (11) HTN (hypertension) Current visit: No Status: Chronic Qualifiers: Hypertension type: essential hypertension Qualified Code(s): I10 - Essential (primary) hypertension Category: Medical Code(s): I10 - Essential (primary) hypertension (12) PAD (peripheral artery disease) Current visit: No Status: Chronic Category: Medical Code(s): I73.9 - Peripheral vascular disease, unspecified (13) Pressure ulcer of left foot, stage 4 Current visit: Yes Status: Acute Category: Medical Code(s): L89.894 - Pressure ulcer of other site, stage 4 (14) Pressure ulcer of right heel, stage 4 Current visit: Yes Status: Acute Category: Medical Code(s): L89.614 - Pressure ulcer of right heel, stage 4 (15) Pressure ulcer of left buttock, stage 2 Current visit: Yes Status: Acute Category: Medical Code(s): L89.322 - Pressure ulcer of left buttock, stage 2 (16) Excoriation of groin Current visit: Yes Status: Acute Category: Medical Code(s): S30.811A - Abrasion of abdominal wall, initial encounter (17) Aortic stenosis, severe Current visit: No Status: Chronic Category: Medical Code(s): I35.0 - Nonrheumatic aortic (valve) stenosis (18) Anemia Current visit: Yes Status: Acute Qualifiers: Anemia type: unspecified type Qualified Code(s): D64.9 - Anemia, unspecified Category: Medical Code(s): D64.9 - Anemia, unspecified
[2019-05-28 07:40] LABS: Basophils % 0.3 % (0.1-2.0); Eosinophils % 0.8 % (0.1-12.0); Hematocrit 26.5 % (42.0-52.0); Lymphocytes # 0.5 K/mm3 (0.7-4.5); Lymphocytes % 12.4 % (10-50); Mean Corpuscular HGB Conc 29.7 g/dL (31.8-35.4); Mean Corpuscular Volume 91.3 fl (80-94); Mean Platelet Volume 10.3 fl (7.4-10.4); Monocytes # 0.3 K/mm3 (0.1-1.0); Monocytes % 7.1 % (1.7-9.3); Neutrophils # 3.4 K/mm3 (1.8-7.8); Neutrophils % 79.4 % (37.0-80.0); Red Blood Count 2.91 M/mm3 (4.60-6.20); Red Cell Distribution Width 20.8 % (11.5-17.5); White Blood Count 4.3 K/mm3 (4.8-10.8)
[2019-05-28 07:45] LABS: Anion Gap 14.1 mEq/L (5-15); Calcium 8.1 mg/dL (8.5-10.1)
[2019-05-28 08:18] LABS: Hemoglobin 7.9 g/dL (14.1-18.0); Platelet Count 50 K/mm3 (142-424)
--- NOTE | 2019-05-28 09:04 | Progress Note ---
Internal Medicine - PN: Subj *Date: 05/28/19 *Time: 09:04 Exam Vital signs and Labs for Last 24 Hours: Temp Pulse Resp BP Pulse Ox 97.9 F 80 16 104/57 L 99 05/28/19 08:00 05/28/19 08:00 05/28/19 08:00 05/28/19 08:00 05/28/19 08:00 Laboratory Results - last 24 hr 05/28/19 07:10: WBC 4.3 L, RBC 2.91 L, Hgb 7.9 L*, Hct 26.5 L, MCV 91.3, MCH 27.1, MCHC 29.7 L, RDW 20.8 H, Plt Count 50 L, MPV 10.3, Neut % (Auto) 79.4, Lymph % (Auto) 12.4, [place] % (Auto) 7.1, Eos % (Auto) 0.8, Baso % (Auto) 0.3, Neut # (Auto) 3.4, Lymph # (Auto) 0.5 L, [place] # (Auto) 0.3, Eos # (Auto) 0.0, Baso # (Auto) 0.0 05/28/19 07:10: Sodium 150 H, Potassium 3.1 L, Chloride 118 H, Carbon Dioxide 21, Anion Gap 14.1, BUN 32 H, Creatinine 1.28, Estimated Creat Clear 56, Estimated GFR 53 L, Est GFR ( Amer) 64, Glucose 87, Calcium 8.1 L I & O for Last 24 hours: Intake & Output 05/25/19 05/26/19 05/27/19 05/28/19 23:59 23:59 23:59 23:59 Intake Total 2241 / 2241 3082 / 3082 2336 / 2336 191 / 191 Output Total 1450 / 1450 1999 / 1999 1025 / 1025 300 / 300 Balance 791 / 791 1082 / 1082 1311 / 1311 1611 / 1611 Weight 95.481 kg 95.164 kg 94.574 kg 97.692 kg Microbiology Reports for the Last 24 Hours: Microbiology 05/24/19 10:05 Foot,Right - Wound Gram Stain - Final 05/24/19 10:05 Foot,Right - Wound Wound Culture - Preliminary [facility] 05/24/19 10:05 Foot,Left - Wound Gram Stain - Final 05/24/19 10:05 Foot,Left - Wound Wound Culture - Preliminary [facility] 05/24/19 03:00 Buttock - Wound Gram Stain - Final 05/24/19 03:00 Buttock - Wound Wound Culture - Final Pseudomonas aeruginosa 05/23/19 14:45 Urine,Catheterized Urine Culture - Final Corynebacterium urealyticum Assessment and Plan (1) Sepsis associated hypotension Current visit: Yes Status: Acute Category: Medical Code(s): A41.9 - Sepsis, unspecified organism; I95.9 - Hypotension, unspecified (2) Acute delirium Current visit: No Status: Acute Category: Medical Code(s): R41.0 - Disorientation, unspecified (3) Pancytopenia Current visit: No Status: Acute Category: Medical Code(s): D61.818 - Other pancytopenia (4) WOJCIECH (acute kidney injury) Current visit: No Status: Acute Category: Medical Code(s): N17.9 - Acute kidney failure, unspecified (5) UTI (urinary tract infection) Current visit: No Status: Acute Qualifiers: Urinary tract infection type: site unspecified Hematuria presence: without hematuria Qualified Code(s): N39.0 - Urinary tract infection, site not specified Category: Medical Code(s): N39.0 - Urinary tract infection, site not specified (6) Afib Current visit: No Status: Acute Qualifiers: Atrial fibrillation type: unspecified persistent Qualified Code(s): I48.19 - Other persistent atrial fibrillation; I48.1 - Persistent atrial fibrillation Category: Medical Code(s): I48.91 - Unspecified atrial fibrillation (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) Current visit: No Status: Acute Category: Medical Code(s): I45.2 - Bifascicular block (8) Altered mental status Current visit: Yes Status: Acute Qualifiers: Altered mental status type: somnolence Qualified Code(s): R40.0 - Somnolence Category: Medical Code(s): R41.82 - Altered mental status, unspecified (9) Aortic stenosis Current visit: No Status: Chronic Qualifiers: Cardiac valve disease etiology: etiology unspecified Qualified Code(s): I35.0 - Nonrheumatic aortic (valve) stenosis Category: Medical Code(s): I35.0 - Nonrheumatic aortic (valve) stenosis (10) Diastolic dysfunction Current visit: No Status: Chronic Category: Medical Code(s): I51.89 - Ot her ill-defined heart diseases (11) HTN (hypertension) Current visit: No Status: Chronic Qualifiers: Hypertension type: essential hypertension Qualified Code(s): I10 - Essential (primary) hypertension Category: Medical Code(s): I10 - Essential (primary) hypertension (12) PAD (peripheral artery disease) Current visit: No Status: Chronic Category: Medical Code(s): I73.9 - Peripheral vascular disease, unspecified (13) Pressure ulcer of left foot, stage 4 Current visit: Yes Status: Acute Category: Medical Code(s): L89.894 - Pressure ulcer of other site, stage 4 (14) Pressure ulcer of right heel, stage 4 Current visit: Yes Status: Acute Category: Medical Code(s): L89.614 - Pressure ulcer of right heel, stage 4 (15) Pressure ulcer of left buttock, stage 2 Current visit: Yes Status: Acute Category: Medical Code(s): L89.322 - Pressure ulcer of left buttock, stage 2 (16) Excoriation of groin Current visit: Yes Status: Acute Category: Medical Code(s): S30.811A - Abrasion of abdominal wall, initial encounter (17) Aortic stenosis, severe Current visit: No Status: Chronic Category: Medical Code(s): I35.0 - Nonrheumatic aortic (valve) stenosis The patient's infection will respond to the chosen ABx?: Yes Is the patient receiving the right drug, dose, and route?: Yes Could a more targeted ABx be ordered?: No (CHANGED ROCEPHIN TO LEVAQUIN DUE TO CULTURE SENSITIVIES.)
--- NOTE | 2019-05-28 09:21 | Progress Note ---
Internal Medicine - PN: Subj *Date: 05/28/19 *Time: 09:21 Interval history: doing sl better today - reviewed labs still with po intake Exam Vital signs and Labs for Last 24 Hours: Temp Pulse Resp BP Pulse Ox 97.9 F 80 16 104/57 L 99 05/28/19 08:00 05/28/19 08:00 05/28/19 08:00 05/28/19 08:00 05/28/19 08:00 Laboratory Results - last 24 hr 05/28/19 07:10: WBC 4.3 L, RBC 2.91 L, Hgb 7.9 L*, Hct 26.5 L, MCV 91.3, MCH 27.1, MCHC 29.7 L, RDW 20.8 H, Plt Count 50 L, MPV 10.3, Neut % (Auto) 79.4, Lymph % (Auto) 12.4, [place] % (Auto) 7.1, Eos % (Auto) 0.8, Baso % (Auto) 0.3, Neut # (Auto) 3.4, Lymph # (Auto) 0.5 L, [place] # (Auto) 0.3, Eos # (Auto) 0.0, Baso # (Auto) 0.0 05/28/19 07:10: Sodium 150 H, Potassium 3.1 L, Chloride 118 H, Carbon Dioxide 21, Anion Gap 14.1, BUN 32 H, Creatinine 1.28, Estimated Creat Clear 56, Estimated GFR 53 L, Est GFR ( Amer) 64, Glucose 87, Calcium 8.1 L I & O for Last 24 hours: Intake & Output 05/25/19 05/26/19 05/27/19 05/28/19 11:59 11:59 11:59 11:59 Intake Total 2860 / 2860 3009 / 3009 2665 / 2665 2782 / 2782 Output Total 2550 / 2550 1500 / 1500 800 / 800 1025 / 1025 Balance 310 / 310 1509 / 1509 1865 / 1865 1757 / 1757 Weight 210 lb 8 oz 209 lb 12.8 oz 208 lb 8 oz 215 lb 6 oz Microbiology Reports for the Last 24 Hours: Microbiology 05/24/19 10:05 Foot,Right - Wound Gram Stain - Final 05/24/19 10:05 Foot,Right - Wound Wound Culture - [facility] 05/24/19 10:05 Foot,Left - Wound Gram Stain - Final 05/24/19 10:05 Foot,Left - Wound Wound Culture - Preliminary [facility] 05/24/19 03:00 Buttock - Wound Gram Stain - Final 05/24/19 03:00 Buttock - Wound Wound Culture - Final Pseudomonas aeruginosa 05/23/19 14:45 Urine,Catheterized Urine Culture - Final Corynebacterium urealyticum - Constitutional no acute distress, somnolent - *Routine HEENT Exam Head: Present: normocephalic Eye: Present: EOMI, PERRL ENT: Present: mucous membranes dry - *Routine Neck Exam Absent: JVD - *Routine Respiratory Exam Present: decreased breath sounds - *Routine Cardiovascular Exam Present: RRR, murmur - *Routine Abdominal Exam Present: soft - *Routine Extremities Exam Absent: edema - *Routine Skin Exam Present: warm - *Routine Neurological Exam Present: altered mental status. Absent: motor deficit - Routine Psychiatric Exam Present: unable to assess Assessment and Plan (1) Sepsis associated hypotension Current visit: Yes Status: Acute Category: Medical Code(s): A41.9 - Sepsis, unspecified organism; I95.9 - Hypotension, unspecified (2) Acute delirium Current visit: No Status: Acute Category: Medical Code(s): R41.0 - Disorientation, unspecified (3) Pancytopenia Current visit: No Status: Acute Category: Medical Code(s): D61.818 - Other pancytopenia (4) WOJCIECH (acute kidney injury) Current visit: No Status: Acute Category: Medical Code(s): N17.9 - Acute kidney failure, unspecified (5) UTI (urinary tract infection) Current visit: No Status: Acute Qualifiers: Urinary tract infection type: site unspecified Hematuria presence: without hematuria Qualified Code(s): N39.0 - Urinary tract infection, site not specified Category: Medical Code(s): N39.0 - Urinary tract infection, site not specified (6) Afib Current visit: No Status: Acute Qualifiers: Atrial fibrillation type: unspecified persistent Qualified Code(s): I48.19 - Other persistent atrial fibrillation; I48.1 - Persistent atrial fibrillation Category: Medical Code(s): I48.91 - Unspecified atrial fibrillation (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) Current visit: No Status: Acute Category: Medical Code(s): I45.2 - Bifascicular block (8) Altered mental status Current visit: Yes Status: Acute Qualifiers: Altered mental status type: somnolence Qualified Code(s): R40.0 - Somnolence Category: Medical Code(s): R41.82 - Altered mental status, unspecified (9) Aortic stenosis Current visit: No Status: Chronic Qualifiers: Cardiac valve disease etiology: etiology unspecified Qualified Code(s): I35.0 - Nonrheumatic aortic (valve) stenosis Category: Medical Code(s): I35.0 - Nonrheumatic aortic (valve) stenosis (10) Diastolic dysfunction Current visit: No Status: Chronic Category: Medical Code(s): I51.89 - Other ill-defined heart diseases (11) HTN (hypertension) Current visit: No Status: Chronic Qualifiers: Hypertension type: essential hypertension Qualified Code(s): I10 - Essential (primary) hypertension Category: Medical Code(s): I10 - Essential (primary) hypertension (12) PAD (peripheral artery disease) Current visit: No Status: Chronic Category: Medical Code(s): I73.9 - Peripheral vascular disease, unspecified (13) Pressure ulcer of left foot, stage 4 Current visit: Yes Status: Acute Category: Medical Code(s): L89.894 - Pressure ulcer of other site, stage 4 (14) Pressure ulcer of right heel, stage 4 Current visit: Yes Status: Acute Category: Medical Code(s): L89.614 - Pressure ulcer of right heel, stage 4 (15) Pressure ulcer of left buttock, stage 2 Current visit: Yes Status: Acute Category: Medical Code(s): L89.322 - Pressure ulcer of left buttock, stage 2 (16) Excoriation of groin Current visit: Yes Status: Acute Category: Medical Code(s): S30.811A - Abrasion of abdominal wall, initial encounter (17) Aortic stenosis, severe Current visit: No Status: Chronic Category: Medical Code(s): I35.0 - Nonrheumatic aortic (valve) stenosis (18) Anemia Current visit: Yes Status: Acute Qualifiers: Anemia type: unspecified type Qualified Code(s): D64.9 - Anemia, unspecified Category: Medical Code(s): D64.9 - Anemia, unspecified (19) Hypokalemia Current visit: Yes Status: Acute Category: Medical Code(s): E87.6 - Hypokalemia (20) Hypernatremia Current visit: Yes Status: Acute Category: Medical Code(s): E87.0 - Hyperosmolality and hypernatremia (21) UTI (urinary tract infection), bacterial Problem details: corynebacterium Current visit: Yes Status: Acute Category: Medical Code(s): N39.0 - Urinary tract infection, site not specified; A49.9 - Bacterial infection, unspecified
[2019-05-29 06:58] LABS: Basophils % 0.7 % (0.1-2.0); Eosinophils # 0.1 K/mm3 (0.0-0.4); Eosinophils % 2.4 % (0.1-12.0); Hematocrit 26.6 % (42.0-52.0); Lymphocytes # 0.7 K/mm3 (0.7-4.5); Lymphocytes % 20.1 % (10-50); Mean Corpuscular HGB Conc 29.4 g/dL (31.8-35.4); Mean Corpuscular Volume 94.1 fl (80-94); Mean Platelet Volume 10.5 fl (7.4-10.4); Monocytes # 0.3 K/mm3 (0.1-1.0); Monocytes % 9.9 % (1.7-9.3); Neutrophils # 2.3 K/mm3 (1.8-7.8); Neutrophils % 66.9 % (37.0-80.0); Red Blood Count 2.83 M/mm3 (4.60-6.20); Red Cell Distribution Width 22.1 % (11.5-17.5); White Blood Count 3.4 K/mm3 (4.8-10.8)
[2019-05-29 07:01] LABS: Hemoglobin 7.8 g/dL (14.1-18.0)
[2019-05-29 07:02] LABS: Platelet Count 42 K/mm3 (142-424)
[2019-05-29 07:37] LABS: Anion Gap 12.8 mEq/L (5-15); Calcium 7.6 mg/dL (8.5-10.1)
--- NOTE | 2019-05-29 09:10 | Progress Note ---
Subjective Date: 05/29/19 <Tia Brown - 05/29/19 16:17> Time: 08:45 <Tia Brown - 05/29/19 16:17> Principal diagnosis: sepsis <Tia Brown - 05/29/19 16:17> Interval history: Patient doing some better this am in the fact that he could state his full name and birthdate, still unsure of as to where he was, patient answered questions with eyes closed the whole time. Patient is stable this am. B/L feet and lower extremities has very dry and cracked skin. 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 See detailed wound measurements in A/P section. <Tia Brown - 05/29/19 16:17> PN: Obj Ex Vital signs: Temp Pulse Resp BP Pulse Ox 97.6 F 69 11 L 127/70 100 05/29/19 11:45 05/29/19 11:45 05/29/19 11:45 05/29/19 11:45 05/29/19 11:45 <Rae Mars - 05/29/19 16:22> Temp Pulse Resp BP Pulse Ox 97.4 F L 67 16 102/53 L 100 05/29/19 08:07 05/29/19 08:07 05/29/19 08:07 05/29/19 08:07 05/29/19 08:07 <Tia Brown - 05/29/19 16:17> - Constitutional no acute distress <Tia Brown - 05/29/19 16:17> - Routine HEENT Exam Head: Present: normocephalic <Tia Brown - 05/29/19 16:17> ENT: Present: mucous membranes moist <Tia Brown - 05/29/19 16:17> - Routine Neck Exam Present: trachea midline <Tia Brown - 05/29/19 16:17> - Routine Respiratory Exam Absent: respiratory distress <Tia Brown - 05/29/19 16:17> - Routine Cardiovascular Exam Absent: JVD <Tia Brown - 05/29/19 16:17> - Routine Abdominal Exam Present: tenderness. Absent: distended <Tia Brown - 05/29/19 16:17> - Routine Extremities Exam Present: edema, pulses intact, normal capillary refill. Absent: calf tenderness <Tia Brown - 05/29/19 16:17> - Detailed Lower Extremity Exam Lower leg: Bilateral swelling (b/l pedal edema) <Tia Brown 05/29/19 16:17> Foot/Toes: Left amputation (1-2 partial ray) <Tia Brown - 05/29/19 16:17> Bottom foot image: 1 - right heel wound: 3.0x0.7x0.2. 80 % granular, 20% fibrotic slough 2 - left heel: 4.3x2.8x0.2. 90% granular, 10% fibrotic slough 3 - right tip of toe blister scabbed, no drainage noted. 4 - Right great toe: 1.8x0.2x.01 cm ; 100% granular <Tia Brown 05/29/19 16:17> - Routine Skin Exam Present: erythema, dry, cracked, ecchymosis <Tia Brown 05/29/19 16:17> Comments: skin remains dry, cracked on tops of b/l feet as well as lower extremities. Slight bruising noted to the right lower leg. <Tia Brown - 05/29/19 16:17> - Routine Neurological Exam Present: hearing grossly intact. Absent: oriented X3, normal speech <Tia Brown 05/29/19 16:17> Patient alert to name and birthdate, not location. Speech garbled but understood. 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) Status: Acute Current Visit: No (8) Altered mental status Status: Acute Current Visit: Yes (9) Aortic stenosis Status: Chronic Current Visit: No (10) Diastolic dysfunction Status: Chronic Current Visit: No (11) HTN (hypertension) Status: Chronic Current Visit: No (12) PAD (peripheral artery disease) Status: Chronic Current Visit: No (13) Pressure ulcer of left foot, stage 4 Status: Acute Current Visit: Yes (14) Pressure ulcer of right heel, stage 4 Status: Acute Current Visit: Yes (15) Pressure ulcer of left buttock, stage 2 Status: Acute Current Visit: Yes (16) Excoriation of groin Status: Acute Current Visit: Yes (17) Aortic stenosis, severe Status: Chronic Current Visit: No (18) Anemia Status: Acute Current Visit: Yes (19) Hypokalemia Status: Acute Current Visit: Yes (20) Hypernatremia Status: Acute Current Visit: Yes (21) UTI (urinary tract infection), bacterial Problem details: corynebacterium Status: Acute Current Visit: Yes <StephanieTia Wolff - 05/29/19 09:05> (1) Sepsis associated hypotension Status: Acute Current Visit: Yes (2) Acute delirium Status: Acute Current Visit: No (3) Pancytopenia Status: Acute Current Visit: No (4) WOJCIECH (acute kidney injury) Status: Acute Current Visit: No (5) UTI (urinary tract infection) Status: Acute Current Visit: No (6) Afib Status: Acute Current Visit: No (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) Status: Acute Current Visit: No (8) Altered mental status Status: Acute Current Visit: Yes (9) Aortic stenosis Status: Chronic Current Visit: No (10) Diastolic dysfunction Status: Chronic Current Visit: No (11) HTN (hypertension) Status: Chronic Current Visit: No (12) PAD (peripheral artery disease) Status: Chronic Current Visit: No (13) Pressure ulcer of left foot, stage 4 Status: Acute Current Visit: Yes (14) Pressure ulcer of right heel, stage 4 Status: Acute Current Visit: Yes (15) Pressure ulcer of left buttock, stage 2 Status: Acute Current Visit: Yes (16) Excoriation of groin Status: Acute Current Visit: Yes (17) Aortic stenosis, severe Status: Chronic Current Visit: No (18) Anemia Status: Acute Current Visit: Yes (19) Hypokalemia Status: Acute Current Visit: Yes (20) Hypernatremia Status: Acute Current Visit: Yes (21) UTI (urinary tract infection), bacterial Problem details: corynebacterium Status: Acute Current Visit: Yes <Rae Mars - 05/29/19 16:22> Assessment and Plan for All Diagnoses:: Physician Attestation I was present during all of the critical components of the office visit. The patient was seen, evaluated and examined by me. I have read the office note that was documented by the staff and/or IT OPERATIONS MANAGER and agree with the documentation. Debridement as above with a sharp curette excisionally through skin into subcutaneous tissue. Post debridement measurements as above. 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 There was no drainage and no purulence noted. Yue-wound cellulitis noted. Non-palpable popliteal lymph nodes. Post-debridement the wound base was: 1. Left heel: 90% granular, 10% fibrotic. The wound measured 4.3x2.8x0.2. Erythema, non-pitting edema noted to skin around the ulcer. 2. Right heel: 80% granular, 20% fibrotic. The wound measured 3.0x 0.7x 0.2 cm. Mild erythema and non-pitting edema noted around the ulcer. 3. Right great toe: blood blister, 100% granular and measured 1.8 x 0.2 x 0.1cm. 1. Off-load b/l LE with pillows 2. Betadine dressing changes daily 3. Nursing to continue daily dressing changes: Betadine soaked 4x4 gauze, dry 4x4 gauze, kerlix wrap and off load the feet on pillow to eliminate pressure. 4. No surgical intervention planned 5. Stable from podiatry standpoint. 6. Patient can follow up in Podiatry office outpatient/ or wound care clinic after discharge in 1-2 weeks. <Tia Brown - 05/29/19 16:17>
--- NOTE | 2019-05-29 11:36 | Pharmacy Consult Notes ---
- Pharmacy Consult Date: 05/29/19 Time: 11:32 Referring provider: DR. BRAN Reason for Consult:: VANCOMYCIN DOSING Allergies and ADEs:: Allergies Allergy/AdvReac Type Severity Reaction Status Date / Time aspirin [ASPIRIN] Allergy Mild Verified 05/18/19 09:16 Home Medications:: Home Medications Medication Instructions Recorded Confirmed Type Acetaminophen [Tylenol Extra 500 mg PO Q6HP PRN 09/14/17 05/23/19 History Strength] Polyethylene Glycol 3350 [Miralax 17 gm PO DAILYP PRN 09/14/17 05/24/19 History 17gm Packet] Tamsulosin HCl [Flomax 0.4mg 0.4 mg PO QPMWM 05/19/18 05/24/19 History capsule] bisacodyl 10 mg rectal suppository 10 mg [place] DAILY PRN 12/29/18 05/23/19 History calcium carbonate 200 mg calcium 200 mg PO DAILY PRN tab 12/29/18 05/23/19 History (500 mg) chewable tablet risperidone 1 mg tablet 1 mg PO DAILY 12/29/18 05/23/19 History risperidone 2 mg tablet 2 mg PO QPMWM tab 12/29/18 05/24/19 History furosemide 40 mg tablet 40 mg PO BID tab 03/17/19 05/23/19 History Potassium Chloride [K-Tab ER 10 10 meq PO DAILY 05/23/19 05/23/19 History mEq] Spironolactone 50 mg PO DAILY 05/23/19 05/23/19 History Height: 1.85 m Weight: 97.692 kg Laboratory Results:: Laboratory Results - last 24 hr 05/29/19 06:10: Vancomycin Trough 0.1 L 05/29/19 06:15: WBC 3.4 L, RBC 2.83 L, Hgb 7.8 L*, Hct 26.6 L, MCV 94.1 H, MCH 27.7, MCHC 29.4 L, RDW 22.1 H, Plt Count 42 L*, MPV 10.5 H, Neut % (Auto) 66.9, Lymph % (Auto) 20.1, [place] % (Auto) 9.9 H, Eos % (Auto) 2.4, Baso % (Auto) 0.7, Neut # (Auto) 2.3, Lymph # (Auto) 0.7, [place] # (Auto) 0.3, Eos # (Auto) 0.1, Baso # (Auto) 0.0 05/29/19 06:15: Sodium 152 H*, Potassium 2.8 L*, Chloride 119 H, Carbon Dioxide 23, Anion Gap 12.8, BUN 22 H D, Creatinine 1.24, Estimated Creat Clear 58, Estimated GFR 55 L, Est GFR ( Amer) 67, Glucose 95, Calcium 7.6 L Medical History: Reports:: Arrhythmia, Carotid Stenosis, Coronary Artery Disease, Heart Murmur, Hyperlipidemia, Hypertension, Peripheral Artery Disease, Peripheral Vascular Disease Denies:: Cancer, Diabetes Mellitus Type 1, Diabetes Mellitus Type 2, Internal Pacemaker, Lung Disease, MRSA, Seizures Assessment and Plan (1) Sepsis associated hypotension Current visit: Yes Status: Acute Category: Medical Code(s): A41.9 - Sepsis, unspecified organism; I95.9 - Hypotension, unspecified (2) Acute delirium Current visit: No Status: Acute Category: Medical Code(s): R41.0 - Disorientation, unspecified (3) Pancytopenia Current visit: No Status: Acute Category: Medical Code(s): D61.818 - Other pancytopenia (4) WOJCIECH (acute kidney injury) Current visit: No Status: Acute Category: Medical Code(s): N17.9 - Acute kidney failure, unspecified (5) UTI (urinary tract infection) Current visit: No Status: Acute Qualifiers: Urinary tract infection type: site unspecified Hematuria presence: without hematuria Qualified Code(s): N39.0 - Urinary tract infection, site not specified Category: Medical Code(s): N39.0 - Urinary tract infection, site not specified (6) Afib Current visit: No Status: Acute Qualifiers: Atrial fibrillation type: unspecified persistent Qualified Code(s): I48.19 - Other persistent atrial fibrillation; I48.1 - Persistent atrial fibrillation Category: Medical Code(s): I48.91 - Unspecified atrial fibrillation (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) Current visit: No Status: Acute Category: Medical Code(s): I45.2 - Bifascicular block (8) Altered mental status Current visit: Yes Status: Acute Qualifiers: Altered mental status type: somnolence Qualified Code(s): R40.0 - Somnolence Category: Medical Code(s): R41.82 - Altered mental status, unspecified (9) Aortic stenosis Current visit: No Status: Chronic Qualifiers: Cardiac valve disease etiology: etiology unspecified Qualified Code(s): I35.0 - Nonrheumatic aortic (valve) stenosis Category: Medical Code(s): I35.0 - Nonrheumatic aortic (valve) stenosis (10) Diastolic dysfunction Current visit: No Status: Chronic Category: Medical Code(s): I51.89 - Other ill-defined heart diseases (11) HTN (hypertension) Current visit: No Status: Chronic Qualifiers: Hypertension type: essential hypertension Qualified Code(s): I10 - Essential (primary) hypertension Category: Medical Code(s): I10 - Essential (primary) hypertension (12) PAD (peripheral artery disease) Current visit: No Status: Chronic Category: Medical Code(s): I73.9 - Peripheral vascular disease, unspecified (13) Pressure ulcer of left foot, stage 4 Current visit: Yes Status: Acute Category: Medical Code(s): L89.894 - Pressure ulcer of other site, stage 4 (14) Pressure ulcer of right heel, stage 4 Current visit: Yes Status: Acute Category: Medical Code(s): L89.614 - Pressure ulcer of right heel, stage 4 (15) Pressure ulcer of left buttock, stage 2 Current visit: Yes Status: Acute Category: Medical Code(s): L89.322 - Pressure ulcer of left buttock, stage 2 (16) Excoriation of groin Current visit: Yes Status: Acute Category: Medical Code(s): S30.811A - Abrasion of abdominal wall, initial encounter (17) Aortic stenosis, severe Current visit: No Status: Chronic Category: Medical Code(s): I35.0 - Nonrheumatic aortic (valve) stenosis (18) Anemia Current visit: Yes Status: Acute Qualifiers: Anemia type: unspecified type Qualified Code(s): D64.9 - Anemia, unspecified Category: Medical Code(s): D64.9 - Anemia, unspecified (19) Hypokalemia Current visit: Yes Status: Acute Category: Medical Code(s): E87.6 - Hypokalemia (20) Hypernatremia Current visit: Yes Status: Acute Category: Medical Code(s): E87.0 - Hyperosmolality and hypernatremia (21) UTI (urinary tract infection), bacterial Problem details: corynebacterium Current visit: Yes Status: Acute Category: Medical Code(s): N39.0 - Urinary tract infection, site not specified; A49.9 - Bacterial infection, unspecified - Assessment and plan all Dx Assessment and Plan for all problems:: PATIENT HAD WOUND CULTURE POSITIVE FOR MRSA. RECOMMEND STARTING WITH VANCOMYCIN 2000 MG Q24H. PATIENT ALSO GETTING HIGHER DOSE OF VANCOMYCIN 250 MG PO Q6H WELL FOR C. DIFF. LITTLE TO NO ACCUMULATION FROM HIGHER PO DOSE IN SERUM. PHARMACY WILL FOLLOW DAILY AND ADJUST APPROPRIATE.
--- NOTE | 2019-05-30 07:39 | Progress Note ---
Internal Medicine - PN: Subj *Date: 05/29/19 *Time: 08:00 Interval history: doing better - still with dec po intake -put note in late but delilah wednesday am Exam Vital signs and Labs for Last 24 Hours: Temp Pulse Resp BP Pulse Ox 97.6 F 80 18 110/66 95 05/30/19 04:00 05/30/19 04:00 05/30/19 04:00 05/30/19 04:00 05/30/19 04:00 Laboratory Results - last 24 hr 05/29/19 06:10: Vancomycin Trough 0.1 L 05/29/19 06:15: Sodium 152 H*, Potassium 2.8 L*, Chloride 119 H, Carbon Dioxide 23, Anion Gap 12.8, BUN 22 H D, Creatinine 1.24, Estimated Creat Clear 58, Estimated GFR 55 L, Est GFR ( Amer) 67, Glucose 95, Calcium 7.6 L I & O for Last 24 hours: Intake & Output 05/27/19 05/28/19 05/29/19 05/30/19 11:59 11:59 11:59 11:59 Intake Total 2665 / 2665 3132 / 3132 5022 / 5022 3791 / 3791 Output Total 800 / 800 1025 / 1025 600 / 600 1800 / 1800 Balance 1865 / 1865 2107 / 2107 4422 / 4422 1990 / 1990 Weight 208 lb 8 oz 215 lb 6 oz 215 lb 5.984 oz 215 lb 5.984 oz Microbiology Reports for the Last 24 Hours: Microbiology 05/24/19 10:05 Foot,Right - Wound Gram Stain - Final 05/24/19 10:05 Foot,Right - Wound Wound Culture - Final Providencia stuartii Staphylococcus aureus 05/24/19 10:05 Foot,Left - Wound Gram Stain - Final 05/24/19 10:05 Foot,Left - Wound Wound Culture - Final Providencia stuartii Staphylococcus aureus - Constitutional no acute distress - *Routine HEENT Exam Head: Present: normocephalic Eye: Present: EOMI, PERRL ENT: Present: mucous membranes dry - *Routine Neck Exam Present: supple - *Routine Respiratory Exam Present: CTA bilaterally - *Routine Cardiovascular Exam Present: RRR, murmur - *Routine Abdominal Exam Present: soft - *Routine Extremities Exam Comments: dressing feet bilat - *Routine Skin Exam Comments: changes feet - *Routine Neurological Exam Present: alert, CN II-XII intact - Routine Psychiatric Exam Present: good insight, unable to assess Assessment and Plan (1) Sepsis associated hypotension Current visit: Yes Status: Acute Category: Medical Code(s): A41.9 - Sepsis, unspecified organism; I95.9 - Hypotension, unspecified (2) Acute delirium Current visit: No Status: Acute Category: Medical Code(s): R41.0 - Disorientation, unspecified (3) Pancytopenia Current visit: No Status: Acute Category: Medical Code(s): D61.818 - Other pancytopenia (4) WOJCIECH (acute kidney injury) Current visit: No Status: Acute Category: Medical Code(s): N17.9 - Acute kidney failure, unspecified (5) UTI (urinary tract infection) Current visit: No Status: Acute Qualifiers: Urinary tract infection type: site unspecified Hematuria presence: without hematuria Qualified Code(s): N39.0 - Urinary tract infection, site not specified Category: Medical Code(s): N39.0 - Urinary tract infection, site not specified (6) Afib Current visit: No Status: Acute Qualifiers: Atrial fibrillation type: unspecified persistent Qualified Code(s): I48.19 - Other persistent atrial fibrillation; I48.1 - Persistent atrial fibrillation Category: Medical Code(s): I48.91 - Unspecified atrial fibrillation (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) Current visit: No Status: Acute Category: Medical Code(s): I45.2 - Bifascicular block (8) Altered mental status Current visit: Yes Status: Acute Qualifiers: Altered mental status type: somnolence Qualified Code(s): R40.0 - Somnolence Category: Medical Code(s): R41.82 - Altered mental status, unspecified (9) Aortic stenosis Current visit: No Status: Chronic Qualifiers: Cardiac valve disease etiology: etiology unspecified Qualified Code(s): I35.0 - Nonrheumatic aortic (valve) stenosis Category: Medical Code(s): I35.0 - Nonrheumatic aortic (valve) stenosis (10) Diastolic dysfunction Current visit: No Status: Chronic Category: Medical Code(s): I51.89 - Other ill-defined heart diseases (11) HTN (hypertension) Current visit: No Status: Chronic Qualifiers: Hypertension type: essential hypertension Qualified Code(s): I10 - Essential (primary) hypertension Category: Medical Code(s): I10 - Essential (primary) hypertension (12) PAD (peripheral artery disease) Current visit: No Status: Chronic Category: Medical Code(s): I73.9 - Peripheral vascular disease, unspecified (13) Pressure ulcer of left foot, stage 4 Current visit: Yes Status: Acute Category: Medical Code(s): L89.894 - Pressure ulcer of other site, stage 4 (14) Pressure ulcer of right heel, stage 4 Current visit: Yes Status: Acute Category: Medical Code(s): L89.614 - Pressure ulcer of right heel, stage 4 (15) Pressure ulcer of left buttock, stage 2 Current visit: Yes Status: Acute Category: Medical Code(s): L89.322 - Pressure ulcer of left buttock, stage 2 (16) Excoriation of groin Current visit: Yes Status: Acute Category: Medical Code(s): S30.811A - Abrasion of abdominal wall, initial encounter (17) Aortic stenosis, severe Current visit: No Status: Chronic Category: Medical Code(s): I35.0 - Nonrheumatic aortic (valve) stenosis (18) Anemia Current visit: Yes Status: Acute Qualifiers: Anemia type: unspecified type Qualified Code(s): D64.9 - Anemia, unspecified Category: Medical Code(s): D64.9 - Anemia, unspecified (19) Hypokalemia Current visit: Yes Status: Acute Category: Medical Code(s): E87.6 - Hypokalemia (20) Hypernatremia Current visit: Yes Status: Acute Category: Medical Code(s): E87.0 - Hyperosmolality and hypernatremia (21) UTI (urinary tract infection), bacterial Problem details: corynebacterium Current visit: Yes Status: Acute Category: Medical Code(s): N39.0 - Urinary tract infection, site not specified; A49.9 - Bacterial infection, unspecified
[2019-05-30 08:37] LABS: Basophils % 0.4 % (0.1-2.0); Eosinophils # 0.2 K/mm3 (0.0-0.4); Eosinophils % 3.7 % (0.1-12.0); Hematocrit 28.2 % (42.0-52.0); Lymphocytes # 0.5 K/mm3 (0.7-4.5); Lymphocytes % 8.5 % (10-50); Mean Corpuscular HGB Conc 28.3 g/dL (31.8-35.4); Mean Corpuscular Volume 96.4 fl (80-94); Mean Platelet Volume 10.5 fl (7.4-10.4); Monocytes # 0.3 K/mm3 (0.1-1.0); Monocytes % 5.3 % (1.7-9.3); Neutrophils # 4.5 K/mm3 (1.8-7.8); Neutrophils % 82.2 % (37.0-80.0); Red Blood Count 2.93 M/mm3 (4.60-6.20); Red Cell Distribution Width 22.6 % (11.5-17.5); White Blood Count 5.5 K/mm3 (4.8-10.8)
--- NOTE | 2019-05-30 08:48 | Discharge Summary ---
General - General Admission date:: 05/24/19 Discharge date: 05/30/19 HPI HPI: this is wm sent [facility] for eval of change in mental status -pt with no specific c/oBrought by ambulance from [facility] Staff reported change in mental status. The patient is slow to respond here but does answer questions appropriately and follows commands. He denies any pain or trouble breathing. He denies any specific complaints at present, states he feels okay. pt was found to have abd u/a and wojciech and was admitted for ivf and abx Hospital Course Hospital Course: left xray: IMPRESSION: Stable exam without acute change. No definite plain film evidence for acute osteomyelitis and no acute fracture. rt foot: IMPRESSION: No acute process and no plain film evidence for acute osteomyelitis. Degenerative changes and osteopenia. arterial study:Conclusion No evidence significant arterial disease throughout the right and left lower extremities as evidenced by normal resting PVR waveforms and normal resting indices. ct head:IMPRESSION: No significant change or acute process. Stable mild generalized cortical atrophy. chest xray: IMPRESSION: Mild enlargement of cardiac silhouette accentuated by the hypoaerated lungs. No definite acute process. Consulted cardiology see their note Consult with podiatry see note Patient has low H&H will monitor closely hold on transfusion at this time related to patient is asymptomatic and severe aortic stenosis. Will recheck H&H on and reevaluate need for blood. Will discharge back to [facility] on p.o. vancomycin for C. difficile, p.o. Levaquin and p.o. minocycline for positive wound cultures. Have wound care doctor look at bilateral feet and buttocks on next rounds at [facility]. Objective Vital signs: Temp Pulse Resp BP Pulse Ox 97.6 F 80 18 110/66 95 05/30/19 04:00 05/30/19 04:00 05/30/19 04:00 05/30/19 04:00 05/30/19 04:00 no acute distress, thin, chronically ill appearing - *Routine HEENT Exam Head: Present: normocephalic, scalp tenderness ENT: Present: mucous membranes moist - *Routine Respiratory Exam Present: CTA bilaterally - *Routine Cardiovascular Exam Present: murmur - *Routine Abdominal Exam Present: soft, normoactive bowel sounds - *Routine Extremities Exam Present: full ROM Comments: Dressings to bilateral feet - *Routine Skin Exam Present: warm Comments: Stage IV to bilateral heels Stage II to buttocks Excoriation noted to groin area - *Routine Neurological Exam Present: alert, oriented X3 - Routine Psychiatric Exam Present: normal affect Results Labs on day of discharge: Labs from last 24 hours 05/29/19 06:10 Vancomycin Trough 0.1 L Preliminary micro results at discharge 05/26/19 10:45 Blood Culture - Preliminary Blood NO GROWTH AFTER 48 HOURS 05/26/19 10:45 Blood Culture - Preliminary Blood NO GROWTH AFTER 48 HOURS - Additional Comments Rounded with Dr. Myers all orders per Lucia DS: Diagnosis - Discharge Diagnosis (1) Sepsis associated hypotension Status: Acute (2) Acute delirium Status: Acute (3) Pancytopenia Status: Acute (4) WOJCIECH (acute kidney injury) Status: Acute (5) UTI (urinary tract infection) Status: Acute (6) Afib Status: Acute (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) Status: Acute (8) Altered mental status Status: Acute (9) Aortic stenosis Status: Chronic (10) Diastolic dysfunction Status: Chronic (11) HTN (hypertension) Status: Chronic (12) PAD (peripheral artery disease) Status: Chronic (13) Pressure ulcer of left foot, stage 4 Status: Acute (14) Pressure ulcer of right heel, stage 4 Status: Acute (15) Pressure ulcer of left buttock, stage 2 Status: Acute (16) Excoriation of groin Status: Acute (17) Aortic stenosis, severe Status: Chronic (18) Anemia Status: Acute (19) Hypokalemia Status: Acute (20) Hypernatremia Status: Acute (21) UTI (urinary tract infection), bacterial Status: Acute Problem details: corynebacterium (22) MRSA (methicillin resistant staph aureus) culture positive Status: Acute (23) C. difficile diarrhea Status: Acute Discharge Plan - Patient Discharge Instructions ACTIVITY: Continue current activity DIET: continue same diet Patient Instructions: Urinary Tract Infection, DI for Antibiotic -- associated Colitis -- C difficile, DI for Urinary Tract Infection (UTI), DI for Multiple Drug-resistant Organism (MDRO) Infection - Follow up Plan Follow up with: Salomon Ng APRN [Advanced Practice Nurse] - 1 week Disposition: [facility] Home Medications: Home Medications Medication Instructions Recorded Confirmed Type Acetaminophen [Tylenol Extra 500 mg PO Q6HP PRN 09/14/17 05/23/19 History Strength] Polyethylene Glycol 3350 [Miralax 17 gm PO DAILYP PRN 09/14/17 05/24/19 History 17gm Packet] Tamsulosin HCl [Flomax 0.4mg 0.4 mg PO QPMWM 05/19/18 05/24/19 History capsule] bisacodyl 10 mg rectal suppository 10 mg [place] DAILY PRN 12/29/18 05/23/19 History calcium carbonate 200 mg calcium 200 mg PO DAILY PRN tab 12/29/18 05/23/19 History (500 mg) chewable tablet risperidone 1 mg tablet 1 mg PO DAILY 12/29/18 05/23/19 History risperidone 2 mg tablet 2 mg PO QPMWM tab 12/29/18 05/24/19 History furosemide 40 mg tablet 40 mg PO BID tab 03/17/19 05/23/19 History Potassium Chloride [K-Tab ER 10 10 meq PO DAILY 05/23/19 05/23/19 History mEq] Spironolactone 50 mg PO DAILY 05/23/19 05/23/19 History L. Acidophilus/Strept/LA P-Jesús 1 cap PO DAILY 30 Days #30 cap 05/30/19 Rx [Leanne-Q Probiotic Capsule] Minocycline HCl 100 mg PO BID 5 Days #10 tab 05/30/19 Rx Vancomycin HCl [Vancomycin 500mg 250 mg PO QID 6 Days #24 vial 05/30/19 Rx vial] levoFLOXacin [Levaquin 500mg 500 mg PO DAILY 5 Days #5 tab 05/30/19 Rx tab] Prescriptions/Medication Reconciliation: New L. Acidophilus/Strept/LA P-Jesús [Leanne-Q Probiotic Capsule] 1 cap PO DAILY 30 Days #30 cap levoFLOXacin [Levaquin 500mg tab] 500 mg PO DAILY 5 Days #5 tab Minocycline HCl 100 mg PO BID 5 Days #10 tab Vancomycin HCl [Vancomycin 500mg vial] 250 mg PO QID 6 Days #24 vial Continued calcium carbonate 200 mg calcium (500 mg) chewable tablet 200 mg PO DAILY PRN tab PRN Reason: supplement bisacodyl 10 mg rectal suppository 10 mg [place] DAILY PRN PRN Reason: bowels furosemide 40 mg tablet 40 mg PO BID tab risperidone 1 mg tablet 1 mg PO DAILY Polyethylene Glycol 3350 [Miralax 17gm Packet] 17 gm PO DAILYP PRN PRN Reason: Constipation Acetaminophen [Tylenol Extra Strength] 500 mg PO Q6HP PRN PRN Reason: As Needed For Fever Or Pain Tamsulosin HCl [Flomax 0.4mg capsule] 0.4 mg PO QPMWM Potassium Chloride [K-Tab ER 10 mEq] 10 meq PO DAILY Spironolactone 50 mg PO DAILY Discontinued risperidone 2 mg tablet 2 mg PO QPMWM tab - Problem Reconciliation Problems Reviewed?: Yes
[2019-05-30 08:54] LABS: Anion Gap 9.2 mEq/L (5-15)
[2019-05-30 09:09] LABS: Platelet Count 43 K/mm3 (142-424)
== END 2019-05-30 12:18 | DRG 689 ==
LOC: ER 13:06 → 2ND 13:06 → ICU 05-24 22:36 → 2ND 05-26 11:17
PROVIDERS: ADMIT Emergency Medicine; ATTEND Emergency Medicine
CPT/HCPCS: 11042; 11045; 36415; 70450; 71010; 71045; 73630; 80048; 80053; 80076; 80202; 81001; 82272; 83605; 84436; 84443; 84479; 84484; 85014; 85018; 85025; 85651; 86140; 86850; 87040; 87070; 87077; 87086; 87088; 87186; 87205; 87507; 93005; 93923; 96365; 96366; 96375; 99285; G0328; G0378; J1956; J2543; J3370; P9016